=== PATIENT | female | born 1980 | race Caucasian/White ===

== ENCOUNTER 2022-03-13 15:39 | Outpatient (CLI) | payer OTHER, SELFPAY ==
--- OUTSIDE RECORDS SUMMARY | 2022-03-13 15:42 | XMS_ITS | Encounter Summary ---
:1980 Author Organization [facility] Address [address] [place] [id number] Care Team Providers Name Role Phone Pepper Palencia MD Primary Care Provider [phone] Reason for Visit Reason Comments Urgent Care Derm Problem Noticed bit on left leg. Itc hy and red. [place] Encounter Details Date Type Department Care Team Description 04/20/[address] [facility] Ishan Patricia (Primary Dx) Urgent Care Patrica Branham PA-C [address] [place] [address] [place] [phone] Social History Tobacco Use Types Packs/Day Years Used Date Never Smoker Smokeless Tobacco: Never Used Alcohol Use Standard Drinks/Week Comments Yes 0 (1 standard drink = 0.6 oz pure alcoho l) occasional 2 drinks/month Alcohol Habits Answer Date Recorded How often do you have a drink containing Not asked alcohol? How many drinks containing alcohol do you Not asked have on a typical day when you are drinking? How often do you have six or more drinks on Not asked one occasion? Comment: occasional 2 drinks/month 03/24/2018 Sex Assigned at Date Recorded Not on file documented as of this encounter Last Filed Vital Signs Vital Sign Reading Time Taken Comments Blood Pressure 110/68 04/20/2019 6:29 PM CDT Pulse 74 04/20/2019 6:29 PM CDT Temperature 36.7 ??C (98.1 ??F) 04/20/2019 6:29 PM CDT Respiratory Rate - - Oxygen Saturation 100% 04/20/2019 6:29 PM CDT Inhaled Oxygen Concentration - - Weight 83.9 kg (185 lb) 04/20/2019 6:29 PM CDT Height - - Body Mass Index 30.79 03/25/2018 6:31 AM CDT documented in this encounter Patient Instructions Patient Ishan Paz PA-C - 04/20/2019 6:00 PM CDT Images from the original note were not included. Patient Education Ringworm of the Skin Ringworm is a fungal infection of the skin. Despite the name, a worm doesn't cause it. The cause of ringworm is a fungus that infects the outer layers of the skin. It is also not caused by bed bugs, scabies, or lice. These are totally different. The medical term for ringworm is tinea. It can affect most parts of your body, although it seems to do better in moist areas of the body and around hair. It can be on almost any part of your body, including: ?? Arms, hands, legs, chest, feet, and back ?? Scalp ?? Lamb ?? Groin ?? Between the toes Depending on where it is located, sometimes the name changes: ?? Tinea capitis (scalp) ?? Tinea cruris (groin) ?? Tinea corporis (body) ?? Tinea pedis (feet) Causes Ringworm is very common all over the world, including the [place] It can take less than 1 week up to 2 weeks before you develop the infection after being exposed. So, you may not figure out the exact cause. It is spread through direct contact with: ?? An infected person or animal ?? Infected soil, or objects such as towels, clothing, and campbell Symptoms At first you might not notice ringworm. Or you may just see a small, red, often raised itchy spot orpimple. Sometimes there may only be one spot. At other times there may be several. Ringworm can lookslightly different on different parts of the body, but there are some things are always present: ?? Irregular, round, oval or ring-shaped, which is why it's called ringworm ?? Clearer or business practices officer color at the center, since it spreads from the center of the spot outward ?? Red or inflamed look ?? Raised ?? Itchy ?? Scaly, dry, or flaky Home care Follow these tips to help care for yourself at home: ?? Leave it alone. Don't scratch at the rash or pick it. This can increase the chance of infection and scarring. ?? Take medicine as prescribed. If you were prescribed a cream, apply it exactly as directed. Make sure to put the cream not just on the rash, but also on the skin 1 or 2 inches around it. Medicine by mouth is??sometimes needed, particularly for ringworm on the scalp.??Take it as directed and until your healthcare provider says to stop. ?? Keep it from spreading to others. Untreated ringworm of the skin is??contagious??by [id number] contact. Your child may return to school 2 days after treatment has started. Prevention To some degree, prevention depends on what part of your body was affected. In general, the followinggood hygiene can help. ?? Clean up??after you get dirty or sweaty, or after using a locker room. ?? When possible, don???t??share campbell and brushes. ?? Avoid having your skin and feet wet or damp for long periods. ?? Wear clean, loose-fitting underwear. Follow-up care Follow up with your healthcare provider as advised by our staff if the rash does not improve after 10 days of treatment or if the rash spreads to other areas of the body. When to seek medical advice Call your healthcare provider right away??if any of these occur: ?? Redness around the rash gets worse ?? Fluid drains from the rash ?? Fever of??100.4??F (38??C) or higher, or as directed by your healthcare provider Date Last Reviewed: 02/26/2016 ?? [id number] [employer]. [address] [place] [address], [place] [address]. All rights reserved. This information is not intended as a substitute for professional medical care. Always follow your healthcare professional's instructions. documented in this encounter Progress Notes Ishan Laboy PA-C - 04/20/2019 6:00 PM CDT Images from the original note were not included. 9 days of left lower leg quarter and dime size SUBJECTIVE: Clarice Arrington is a 39 year old female who presents to the clinic today for a rash. Onset of rash was 9 day(s) ago. Rash is gradual onset and worsening. Location of the rash: lower leg. Quality/symptoms of rash: itching, dry and red Symptoms are mild and rash seems to be worsening. Previous history of a similar rash? No Recent exposure history: none known Associated symptoms include: nothing. Past Medical History: Diagnosis Date ??? Breast cancer (H) ??? Breast cancer (H) ??? Depression Current Outpatient Medications Medication Sig Dispense Refill ??? albuterol (PROAIR HFA/PROVENTIL HFA/VENTOLIN HFA) 108 (90 Base) MCG/ACT inhaler Inhale 2 puffs into the lungs every 6 hours ??? BuPROPion HCl (WELLBUTRIN PO) Take 300 mg by mouth daily ??? clotrimazole (LOTRIMIN) 1 % external cream Apply topically 2 times daily for 14 days 40 g 0 ??? FLUOXETINE HCL PO Take 10 mg by mouth daily ??? acetaminophen (TYLENOL) 325 MG tablet Take 1 tablet (325 mg) by mouth every 6 hours as needed for mild pain (Patient not taking: Reported on 04/20/2019) 30 tablet 0 ??? chlorhexidine (PERIDEX) 0.12 % solution Swish and spit 15 mLs in mouth 2 times daily (Patient not taking: Reported on 04/20/2019) 473 mL 0 ??? HYDROcodone-acetaminophen (NORCO) 5-325 MG per tablet Take 1 tablet by mouth every 6 hours as needed for pain (Patient not taking: Reported on 04/20/2019) 8 tablet 0 ??? hydrocortisone (CORTAID) 1 % cream Apply sparingly to upper and lower lip three times daily to help improve swelling. (Patient not taking: Reported on 04/20/2019) 30 g 0 ??? ibuprofen (ADVIL/MOTRIN) 600 MG tablet Take 1 tablet (600 mg) by mouth every 6 hours as needed for moderate pain (Patient not taking: Reported on 04/20/2019) 30 tablet 1 ??? VITAMIN D, CHOLECALCIFEROL, PO Take 3,000 Units by mouth daily Social History Tobacco Use ??? Smoking status: Never Smoker ??? Smokeless tobacco: Never Used Substance Use Topics ??? Alcohol use: Yes Alcohol/week: 0.0 standard drinks Comment: occasional 2 drinks/month ROS: 10 point ROS negative except as listed above EXAM: BP 110/68 Pulse 74 Temp 98.1 ??F (36.7 ??C) (Tympanic) Wt 83.9 kg (185 lb) SpO2 100% BMI 30.79 kg/m?? GENERAL: alert, no acute distress. SKIN: Rash description: Distribution: 2 small dime and quarter sized red dry annular lesions with scaling edge GENERAL APPEARANCE: healthy, alert and no distress EYES: EOMI, PERRL, conjunctiva clear HENT: ear canals and TM's normal. Nose and mouth without ulcers, erythema or lesions NECK: supple, non-tender to palpation, no adenopathy noted RESP: lungs clear to auscultation - no rales, rhonchi or wheezes CV: regular rates and rhythm, normal S1 S2, no murmur noted ASSESSMENT: (B35.9) Ringworm (primary encounter diagnosis) Comment: no evidence of secondary infection Plan: clotrimazole (LOTRIMIN) 1 % external cream Follow up with PCP if symptoms worsen or fail to improve In 1 week Patient Instructions Patient Education Ringworm of the Skin Ringworm is a fungal infection of the skin. Despite the name, a worm doesn't cause it. The cause of ringworm is a fungus that infects the outer layers of the skin. It is also not caused by bed bugs, scabies, or lice. These are totally different. The medical term for ringworm is tinea. It can affect most parts of your body, although it seems to do better in moist areas of the body and around hair. It can be on almost any part of your body, including: ?? Arms, hands, legs, chest, feet, and back ?? Scalp ?? Lamb ?? Groin ?? Between the toes Depending on where it is located, sometimes the name changes: ?? Tinea capitis (scalp) ?? Tinea cruris (groin) ?? Tinea corporis (body) ?? Tinea pedis (feet) Causes Ringworm is very common all over the world, including the [place] It can take less than 1 week up to 2 weeks before you develop the infection after being exposed. So, you may not figure out the exact cause. It is spread through direct contact with: ?? An infected person or animal ?? Infected soil, or objects such as towels, clothing, and campbell Symptoms At first you might not notice ringworm. Or you may just see a small, red, often raised itchy spot orpimple. Sometimes there may only be one spot. At other times there may be several. Ringworm can lookslightly different on different parts of the body, but there are some things are always present: ?? Irregular, round, oval or ring-shaped, which is why it's called ringworm ?? Clearer or business practices officer color at the center, since it spreads from the center of the spot outward ?? Red or inflamed look ?? Raised ?? Itchy ?? Scaly, dry, or flaky Home care Follow these tips to help care for yourself at home: ?? Leave it alone. Don't scratch at the rash or pick it. This can increase the chance of infection and scarring. ?? Take medicine as prescribed. If you were prescribed a cream, apply it exactly as directed. Make sure to put the cream not just on the rash, but also on the skin 1 or 2 inches around it. Medicine by mouth is??sometimes needed, particularly for ringworm on the scalp.??Take it as directed and until your healthcare provider says to stop. ?? Keep it from spreading to others. Untreated ringworm of the skin is??contagious??by [id number] contact. Your child may return to school 2 days after treatment has started. Prevention To some degree, prevention depends on what part of your body was affected. In general, the followinggood hygiene can help. ?? Clean up??after you get dirty or sweaty, or after using a locker room. ?? When possible, don???t??share campbell and brushes. ?? Avoid having your skin and feet wet or damp for long periods. ?? Wear clean, loose-fitting underwear. Follow-up care Follow up with your healthcare provider as advised by our staff if the rash does not improve after 10 days of treatment or if the rash spreads to other areas of the body. When to seek medical advice Call your healthcare provider right away??if any of these occur: ?? Redness around the rash gets worse ?? Fluid drains from the rash ?? Fever of??100.4??F (38??C) or higher, or as directed by your healthcare provider Date Last Reviewed: 02/26/2016 ?? [id number] [employer]. [address] [place] [address]. All rights reserved. This information is not intended as a substitute for professional medical care. Always follow your healthcare professional's instructions. documented in this encounter Plan of Treatment Not on filedocumented as of this encounter Visit Diagnoses Diagnosis Ringworm - Primary Dermatophytosis of unspecified site documented in this encounter Care Teams Phys Therapist Relationship Specialty Start Date End Date Pepper Palencia MD PCP - General Family Practice 03/06/[address] [id number] documented as of this encounter
--- OUTSIDE RECORDS SUMMARY | 2022-03-13 15:42 | XMS_ITS | Encounter Summary ---
:1980 Author Organization [facility] Address [address] [place] [address] Care Team Providers Name Role Phone Pepper Palencia MD Primary Care Provider [phone] Reason for Visit Auth/Cert Specialty Diagnoses / Procedures Referred By Contact Refer red To Contact Surgery Diagnoses Trismus, Condylar Hyperplasia Uu Periop Procedures [facility] [address] [place] [address] Phone: Fax: Referral ID Status Reason Start Date Expiration Date Visits Requ ested Visits Authorized [id number] 1 1 Encounter Details Date Type Department Care Team Description 03/25/2018 Anesthesia Event LTAC, located within [facility] Catrina Saldana, PeriOp Services [address] [facility] [address] [place] [address] [facility] [address] [place], [place] [id number] (Wo rk) Anesthesia Record Procedure Summary Procedure Name Responsible Anesthesia Start Anesthesia Stop Anesthesiologist Time Time Bilateral Cristy Saldana MD 03/25/18 0740 03/25/18 1058 Coronoidectomies, Bilateral Ptergomasseteric Myotomies (Bilateral Mouth) Events Date Time Event Comment 03/25/2018 0740 An Jose A Oneil met on 3C. Chart reviewed. Interviewed. IV started. Blood drawn from IV that was started for labs. Ring from finger yecenia kevin by pt. Navel piercing removed by pt. Both were given to family. 0745 An Start Data 0757 An Induction 0757 MD Present 0801 AN START SEVO 0808 MD Present 0809 An Intubation 0815 AN Throat Pack In 0820 Initial Antibiotic (Started) 0820 Anesthesia Complete 0831 AN INCISION 1030 AN Throat Pack Out 1035 Quick Note OG placed by rena blackmon to empty stomach. Removed immediat ash. 1043 MD Present 1043 AN END SEVO 1043 AN Extubation 1046 an stop data 1058 An Stop Electronically s igned by Brayan Esparza on March 25, 2018 10:58 AM Name Total midazolam 1mg/mL 2 mg fentaNYL (SUBLIMAZE) injection 200 mcg lidocaine 2% 100 mg propofol (DIPRIVAN) injection 10 mg/mL vial 240 mg succinylcholine 20 mg/mL 200 mg rocuronium 10mg/mL 60 mg dexamethasone 4mg/mL 8 mg ondansetron 2mg/mL 4 mg sugammadex (BRIDION) 200mg/2ml 120 mg clindamycin (CLEOCIN) infusion 900 mg 900 mg ketorolac 30 mg/mL 2 mg LR 1,000 mL Agents Name NO HELIOX O2 N2O Air Exp Sevoflurane Exp Isoflurane Exp Desflurane Exp N2O O2 Delivery Device Ins Sevoflurane Ins Isoflurane Ins Desflurane O2 Auxiliary Blood No blood administrations on file. Lines, Drains, and Airways Type Details Placement Removal Incision/Surgical 09/25/16; 1233; Left; 09/25/16 1233 by Site Sharmila Campos RN Incision/Surgical 09/25/16; 1233; Right; 09/25/16 1233 by Site Sharmila Campos RN Closed/Suction Drain 09/25/16; 1500; 1; Left; 09/25/16 1500 by Breast; Bulb; 15 Martiniquais; Celina Lock, compress bulb at 4:30pm RN Closed/Suction Drain 09/25/16; 1500; 2; 09/25/16 1500 by Right; Breast; Bulb; 15 TirevoldCelina, Martiniquais; compress bulb at RN 4:30pm Incision/Surgical 05/07/17; 0839; Left; 05/07/17 0839 by Site Liyah Fox RN Incision/Surgical 05/07/17; 0839; Right; 05/07/17 0839 by Site Liyah Fox RN Peripheral IV 03/25/18; 0730; 18 G; 03/25/18 0730 by Left; Hand; Alcohol; Brayan Esparza Injectable; Tolerated NATALIE Carrillo CERTIFIED MEDICAL TRANSCRIPTIONIST well Incision/Surgical 03/25/18; 1014; 03/25/18 1014 by Site Bilateral; Mouth; Alisa Min Intraalee Thakkar, RN RETIRED ETT 03/25/18; 08; Mask 03/25/18 0809 by 03/25/18 1 043 by Ventilation: Easy; Ease Brayan Esparza Christian of Intubation: Difficult Lorena, COMPLAINT COORDINATOR CERTIFIED MEDICAL TRANSCRIPTIONIST Lorena, COMPLAINT COORDINATOR CERTIFIED MEDICAL TRANSCRIPTIONIST (challenging due to very limited mouth opening); Airway Size: 7; Cuffed; Nasal; Blade Type: C-Mac (only able to advance CMAC half way into oral cavity); Blade Size: 3; Place by: Afrin bilat.nares progressively dilated w/ 30&32Fr nasal trumpets.magills utilized w CMAC3.; Insertion Attempts: 2; Breath Sounds: Equal, clear and bilateral; End Tidal CO2: Present; Dentition: Intact, Unchanged; Grade View of Cords: 3 (epiglottis visualized, unable to advance CMAC to lift epiglottis); Airway Adjuncts: C-Mac (attempted nasal fiberoptic intubation, attempt aborted by SRNA ) documented in this encounter Social History Tobacco Use Types Packs/Day Years [...] on file documented as of this encounter OR Notes Anesthesia Postprocedure Evaluation - Cristy Saldana MD - 03/25/2018 1:06 PM CDT Patient: Clarice Bacat Procedure(s): Bilateral Coronoidectomies, Bilateral Ptergomasseteric Myotomies - Wound Class: II-Clean Contaminated Diagnosis:Trismus, Condylar Hyperplasia Diagnosis Additional Information: No value filed. Anesthesia Type: General Note: Anesthesia Post Evaluation Patient location during evaluation: PACU Patient participation: Able to fully participate in evaluation Level of consciousness: awake Pain management: adequate Airway patency: patent Cardiovascular status: acceptable Respiratory status: acceptable Hydration status: acceptable PONV: none Anesthetic complications: None Last vitals: Vitals: 03/25/18 1200 03/25/18 1215 03/25/18 1240 BP: 119/71 121/68 117/64 Pulse: Resp: Temp: 37 ??C (98.6 ??F) 37.1 ??C (98.8 ??F) SpO2: 99% 97% Electronically Signed By: Cristy Saldana MD March 25, 2018 1:06 PM Anesthesia Preprocedure Evaluation - Cristy Saldana MD - 03/25/2018 7:26 AM CDT ANESTHESIA PREOP EVALUATION NPO Status: more then 6 hours Procedure: Bilateral Coronoidectomies HPI: Trismus, Condylar Hyperplasia PMHx/PSHx/ROS: PAST MEDICAL HISTORY: Past Medical History: Diagnosis Date ??? Breast cancer (H) ??? Breast cancer (H) ??? Depression PAST SURGICAL HISTORY: Past Surgical History: Procedure Laterality Date ??? BIOPSY NODE SENTINEL Right 09/25/2016 Procedure: BIOPSY NODE SENTINEL; Surgeon: Spencer Blunt MD; Location: OR ??? BREAST SURGERY ??? HRW PORT A CATH ??? INSERT TISSUE FRONTEND ENGINEER BREAST BILATERAL Bilateral 09/25/2016 Procedure: INSERT TISSUE FRONTEND ENGINEER BREAST BILATERAL; Surgeon: Lore Traore MD; Location: OR ??? MASTECTOMY, NIPPLE SPARING Bilateral 09/25/2016 Procedure: MASTECTOMY, NIPPLE SPARING; Surgeon: Spencer Blunt MD; Location: OR ??? RECONSTRUCT BREAST BILATERAL, IMPLANT PROSTHESIS BILATERAL, COMBINED Bilateral 05/07/2017 Procedure: COMBINED RECONSTRUCT BREAST BILATERAL, IMPLANT PROSTHESIS BILATERAL; BILATERAL SECOND STAGE BREAST RECONSTRUCTION WITH IMPLANT PLACEMENT ; Surgeon: Lore Traore MD; Location: [place] ??? REMOVE PORT VASCULAR ACCESS Left 09/25/2016 Procedure: REMOVE PORT VASCULAR ACCESS; Surgeon: Spencer Blunt MD; Location: OR FAMILY HISTORY: History reviewed. No pertinent family history. Past Anes Hx: No personal or family h/o anesthesia problems Allergies: Allergies Allergen Reactions ??? Penicillins Pt stated she gets a yeast infection Meds: Prescriptions Prior to Admission Medication Sig Dispense Refill Last Dose ??? BuPROPion HCl (WELLBUTRIN PO) Take 300 mg by mouth daily 03/25/2018 at 0900 ??? FLUOXETINE HCL PO Take 10 mg by mouth daily 03/24/2018 at 0900 ??? albuterol (PROAIR HFA/PROVENTIL HFA/VENTOLIN HFA) 108 (90 Base) MCG/ACT inhaler Inhale 2 puffs into the lungs every 6 hours Unknown at Unknown time ??? VITAMIN D, CHOLECALCIFEROL, PO Take 3,000 Units by mouth daily More than a month at Unknown time No current outpatient prescriptions on file. Physical Exam: VS: T 98.5, P 75, BP 109/79, R 16, SpO2 100% MP4, TM distance >3fb, mouth opening 2 cm, full ROM, intact dentition. BMP: No results found for: NA Lab Results Component Value Date POTASSIUM 3.5 03/25/2018 No results found for: CHLORIDE No results found for: SCOOTER No results found for: CO2 No results found for: BUN Lab Results Component Value Date CR 0.87 03/25/2018 No results found for: GLC CBC: No results found for: WBC Lab Results Component Value Date HGB 12.5 03/25/2018 Anesthesia Plan History & Physical Review History and physical reviewed and following examination; no interval change. ASA Status: 2 . NPO Status: > 8 hours Plan for General and ETT with Intravenous induction. Maintenance will be Balanced. PONV prophylaxis: Ondansetron (or other 5HT-3) Additional equipment: Videolaryngoscope and Fiberoptic bronchoscope Postoperative Care Postoperative pain management: IV analgesics. Consents Anesthetic plan, risks, benefits and alternatives discussed with: Patient.. Cristy Saldana MD 03/25/2018 . documented in this encounter Miscellaneous Notes Anesthesia Care Transfer Note - Brayan Esparza APRN CERTIFIED MEDICAL TRANSCRIPTIONIST - 03/25/2018 10:57 AM CDT Patient: Clarice Bacat Procedure(s): Bilateral Coronoidectomies, Bilateral Ptergomasseteric Myotomies - Wound Class: II-Clean Contaminated Diagnosis: Trismus, Condylar Hyperplasia Diagnosis Additional Information: No value filed. Anesthesia Type: General Note: Airway :Face Mask Patient transferred to:PACU Comments: Oropharynx suctioned. Spont resp. Extubated. Exchanging well. To PACU. Report to RN at bedside. Pt awake and following commands. Handoff Report: Identifed the Patient, Identified the Reponsible Provider, Reviewed the pertinent medical history, Discussed the surgical course, Reviewed Intra-OP anesthesia mangement and issues during anesthesia, Set expectations for post- procedure period and Allowed opportunity for questions and acknowledgement of understanding Vitals: (Last set prior to Anesthesia Care Transfer) CERTIFIED MEDICAL TRANSCRIPTIONIST VITALS 03/25/2018 1016 - 03/25/2018 1057 03/25/2018 Resp Rate (observed): (!) 1 Electronically Signed By: Brayan Esparza APRN CRNA March 25, 2018 10:57 AM documented in this encounter Plan of Treatment Not on filedocumented as of this encounter Visit Diagnoses Not on filedocumented in this encounter Administered Medications Inactive Administered Medications - up to 3 most recent administrations Medication Order MAR Action Action Date Dose Rate Site clindamycin (CLEOCIN) infusion 900 Given 03/25/2018 8:20 AM CDT 900 mg mg Routine, 900 mg, Intravenous, PRE-OP/PRE-PROCEDURE, Starting on Fri03/25/18 at 0644, For 1 dose, Give first dose within 1 hour PRIOR to incision., Indications: Perioperative Pharmacoprophylaxis, Pre-procedure dexamethasone (DECADRON) injection Given 03/25/2018 8:16 AM CDT 8 mg Intravenous, PRN, Administer over 1 Minutes, Starting on Fri03/25/18 at 0816, Anesthesia Intra-op fentaNYL (PF) (SUBLIMAZE) injection Given 03/25/2018 9:12 AM CDT 50 mcg Intravenous, PRN, moderate to severe pain, Administer over 3-5 Minutes, Starting on Fri03/25/18 at 0752, Anesthesia Intra-op Given 03/25/2018 8:33 AM CDT 50 mcg Given 03/25/2018 8:13 AM CDT 50 mcg ketorolac (TORADOL) injection Given 03/25/2018 10:13 AM CDT 2 mg PRN, moderate pain, Administer over 2 Minutes, Starting on Fri03/25/18 at 1013, Anesthesia Intra-op lactated ringers infusion New Bag 03/25/2018 10:17 AM CDT Intravenous, CONTINUOUS PRN, Anesthesia Intra-op, Starting on Fri03/25/18 at 0730, Until Fri03/25/18 at 1058 New Bag 03/25/2018 7:30 AM CDT lidocaine injection 2% (MDV) Given 03/25/2018 7:57 AM CDT 100 mg Intravenous, PRN, Starting on Fri03/25/18 at 0757, Anesthesia Intra-op midazolam (VERSED) injection Given 03/25/2018 7:53 AM CDT 1 mg Intravenous, Administer over 2 Minutes, PRN, anxiety, Starting on Fri03/25/18 at 0753, Anesthesia Intra-op Given 03/25/2018 7:40 AM CDT 1 mg ondansetron (ZOFRAN) injection Given 03/25/2018 10:13 AM CDT 4 mg Intravenous, PRN, nausea, vomiting, Administer over 2-5 Minutes, Starting on Fri03/25/18 at 1013, Anesthesia Intra-op propofol (DIPRIVAN) injection 10 mg/mL v ial Given 03/25/2018 9:52 AM CDT 40 mg Intravenous, PRN, Starting on Fri03/25/18 at 0758, Anesthesia Intra-op Given 03/25/2018 8:11 AM CDT 30 mg Given 03/25/2018 8:07 AM CDT 30 mg rocuronium (ZEMURON) injection Given 03/25/2018 9:12 AM CDT 10 mg Intravenous, PRN, Starting on Fri03/25/18 at 0817, Anesthesia Intra-op Given 03/25/2018 8:19 AM CDT 20 mg Given 03/25/2018 8:17 AM CDT 30 mg succinylcholine (ANECTINE) injection Given 03/25/2018 8:04 AM CDT 100 mg Intravenous, PRN, Starting on Fri03/25/18 at 0804, Anesthesia Intra-op Given 03/25/2018 7:59 AM CDT 100 mg sugammadex (BRIDION) injection Given 03/25/2018 10:33 AM CDT 120 mg PRN, Starting on Fri03/25/18 at 1033, Anesthesia Intra-op documented in this encounter Care Teams Software Installation Engineer Relationship Specialty Start Date End Date Pepper Palencia MD PCP - General Family Practice 03/06/[address] [address] documented as of this encounter
--- OUTSIDE RECORDS SUMMARY | 2022-03-13 15:42 | XMS_ITS | Encounter Summary ---
:1980 Author Organization [facility] Address [address] [place] [address]. [place] [address] Care Team Providers Name Role Phone Pepper Palencia MD Primary Care Provider [phone] Encounter Details Date Type Department Care Team Description 12/22/2018 Orders Only [employer] Sena Patricio, Breast cancer (H) (Primary Dx); Naida Zhang MD BRCA1 positive [address] [facility] [id number] [place] [address] [place] [address] Social History Tobacco Use Types Packs/Day Years [...] on file documented as of this encounter Plan of Treatment Not on filedocumented as of this encounter Results Estradiol (12/29/2018 3:08 PM T) P athologist Signature Estradiol 344 pg/mL 12/29/2018 [facility] 5:45 PM CDT [facility] Comment: Estradiol reference ranges for pre-menop ausal Follicular ?20-144 pg/mL Mid-cycle ?? 64-357 pg/mL Luteal ? 56-214 pg/mL Specimen Anatomical Collection Method Collection Time Receive d Time (Source) Location / / Volume Laterality Blood specimen 12/29/2018 3:08 PM 019 3:09 (specimen) CDT PM CDT Sena Patricio MD LAB - BLOOD ORDERABLES Performing Organization Address [facility] e Number [facility] [address] Lutropin (12/29/2018 3:08 PM CDT) P athologist Signature Lutropin 25.8 IU/L 12/29/2018 [facility] 5:45 PM CDT [facility] Comment: LH Reference Range Female: Follicular ?1.9-12.5 ?Mid-cycle ? 8.7-76.3 ?Luteal ?0.5-16. 9 ?Postmenopausal ??15.9-54.0 Specimen Anatomical Collection Method Collection Time Receive d Time (Source) Location / / Volume Laterality Blood specimen 12/29/2018 3:08 PM 019 3:09 (specimen) CDT PM CDT Sena Patricio MD LAB - BLOOD ORDERABLES Performing Organization Address [facility] e [address] Follicle stimulating hormone (12/29/2018 3:08 PM CDT) P athologist Signature FSH 5.6 IU/L 12/29/2018 [facility] 5:45 PM CDT [facility] Comment: FSH Reference Range Female: Follicular ?2.5-10.2 ?Mid-cycle ? 3.4-33.4 ?Luteal ?1.5-9.1 ?Postmenopausal ??23.0-116.3 Specimen Anatomical Collection Method Collection Time Receive d Time (Source) Location / / Volume Laterality Blood specimen 12/29/2018 3:08 PM 2 019 3:09 (specimen) CDT CDT Sena Patricio MD LAB - BLOOD ORDERABLES Performing Organization Address City/State/ZIP Code Phon e Number [address] [address] [facility] Comprehensive metabolic panel (BMP + Alb, Alk Phos, ALT, AST, Total. Bili, TP) (12/29/2018 3:08 PM CDT) athologist Signature Sodium 139 133 - 144 12/29/2018 [facility] mmol/L 3:27 PM [facility] Potassium 4.0 3.4 - 5.3 12/29/2018 [place] mmol/L 3:27 PM [facility] Chloride 107 94 - 109 12/29/2018 [place] mmol/L 3:27 PM [facility] Carbon Dioxide 27 20 - 32 12/29/2018 [place] mmol/L 3:34 PM [facility] Anion Gap 5 3 - 14 12/29/2018 [place] mmol/L 3:34 PM [facility] Glucose 81 70 - 99 12/29/2018 [place] mg/dL 3:34 PM [facility] Urea Nitrogen 15 7 - 30 12/29/2018 [place] mg/dL 3:34 PM [facility] Creatinine 1.02 0.52 - 12/29/2018 [place] 1.04 mg/dL 3:34 PM [facility] GFR Estimate 70 >60 12/29/2018 [place] mL/min/{1. 3:34 PM [facility] 73_m2} HOSPITAL Comment: Non GFR Calc Starting 07/14/2018, serum creatinine ba sed estimated GFR (eGFR) will be calculated using the Chronic Kidney Dise [facility] Epidemiology Collaboration (CKD-EPI) equation. GFR Estimate If 81 >60 mL/min/{1.73_m2} 12/29/2018 3: 34 PM [facility] Comment: GFR Calc Starting 07/14/2018, serum creatinine ba sed estimated GFR (eGFR) will be calculated using the Chronic Kidney Dise [facility] Epidemiology Collaboration (CKD-EPI) equation. Calcium 8.7 8.5 - 10.1 mg/dL 12/29/2018 3:34 PM [facility] Bilirubin Total 0.4 0.2 - 1.3 mg/dL 12/29/2018 3:[address] [facility] Albumin 4.1 3.4 - 5.0 g/dL 12/29/2018 3:[address] [facility] Protein Total 7.8 6.8 - 8.8 g/dL 12/29/2018 3:[address] [facility] Alkaline Phosphatase 67 40 - 150 U/L 12/29/2018 3:[address] [facility] ALT 21 0 - 50 U/L 12/29/2018 3:36 PM [facility] AST 12 0 - 45 U/L 12/29/2018 3:36 PM [facility] Specimen Anatomical Collection Method Collection Time Receive d Time (Source) Location / / Volume Laterality Blood specimen 12/29/2018 3:08 PM 019 3:09 (specimen) CDT PM CDT Sena Patricio MD LAB - BLOOD ORDERABLES Performing Organization Address City/State/ZIP Code Phon e Number M [address] [address] [facility] [address] [place], [place] [address] [phone] [address], [facility] CBC with platelets and differential (12/29/2018 3:08 PM CDT) [facility] Method Time Signature WBC 6.6 4.0 - 12/29/2018 [facility] 11.0 3:16 PM [facility] 10e9/L [facility] RBC Count 4.15 3.8 - 5.2 12/29/2018 [place] 10e12/L 3:16 PM [facility] Hemoglobin 12.8 11.7 - 12/29/2018 [facility] 15.7 g/dL 3:16 PM [facility] Hematocrit 38.8 35.0 - 12/29/2018 [facility] 47.0 % 3:16 PM [facility] MCV 94 78 - 100 12/29/2018 [facility] fl 3:16 PM [facility] MCH 30.8 26.5 - 12/29/2018 [facility] 33.0 pg 3:16 PM [facility] MCHC 33.0 31.5 - 12/29/2018 [facility] 36.5 g/dL 3:16 PM [facility] RDW 13.1 10.0 - 12/29/2018 [facility] 15.0 % 3:16 PM [facility] Platelet Count 335 150 - 450 12/29/2018 [facility] 10e9/L 3:16 PM [facility] Diff Method Automated 12/29/2018 [facility] Method 3:16 PM [facility] % Neutrophils 48.6 % 12/29/2018 [facility] 3:16 PM [facility] % Lymphocytes 35.5 % 12/29/2018 [facility] 3:16 PM [facility] % Monocytes 11.0 % 12/29/2018 [facility] 3:16 [facility] % Eosinophils 3.3 % 12/29/2018 [facility] 3:16 PM [facility] % Basophils 1.4 % 12/29/2018 [facility] 3:16 PM [facility] % Immature 0.2 % 12/29/2018 [facility] Granulocytes 3:16 [facility] Nucleated RBCs 0 0 /100 12/29/2018 [facility] 3:16 PM [facility] Absolute 3.2 1.6 - 8.3 12/29/2018 [facility] Neutrophil 10e9/L 3:16 [facility] Absolute 2.4 0.8 - 5.3 12/29/2018 [facility] Lymphocytes 10e9/L 3:16 PM [facility] Absolute 0.7 0.0 - 1.3 12/29/2018 [facility] Monocytes 10e9/L 3:16 [facility] Absolute 0.2 0.0 - 0.7 12/29/2018 [facility] Eosinophils 10e9/L 3:16 [facility] Absolute 0.1 0.0 - 0.2 12/29/2018 [facility] Basophils 10e9/L 3:16 [facility] Abs Immature 0.0 0 - 0.4 12/29/2018 [facility] Granulocytes 10e9/L 3:16 PM CDT [facility] Absolute 0.0 12/29/2018 [place] Nucleated RBC 3:16 PM CDT [facility] Specimen Anatomical Collection Method Collection Time Receive d Time (Source) Location / / Volume Laterality Blood specimen 12/29/2018 3:08 PM 019 3:09 (specimen) CDT PM CDT Sena Patricio MD LAB - BLOOD ORDERABLES Performing Organization Address City/State/ZIP Code Phon e Number M [place] [address] [address] [address] [facility] [address] [phone] documented in this encounter Visit Diagnoses Diagnosis Breast cancer (H) - Primary Malignant neoplasm of breast (female), u nspecified site BRCA1 positive Genetic susceptibility to malignant neop lasm of breast documented in this encounter Care Teams Diagnostic Medical Sonographer Relationship Specialty Start Date End Date Pepper Palencia MD PCP - General Family Practice 03/06/[address] [address] documented as of this encounter
--- OUTSIDE RECORDS SUMMARY | 2022-03-13 15:42 | XMS_ITS | Encounter Summary ---
:1980 Author Organization [facility] Address [address] [place] [address]. [place] [address] Care Team Providers Name Role Phone Pepper Palencia MD Primary Care Provider Encounter Details Date Type Department Care Team Description 12/29/2018 Hospital Encounter [facility] Sena Patricio B reast cancer (H); Naida Zhang MD BRCA1 positive [address] [facility] [id number] [address] [facility] [phone] [place] [address] Social History Tobacco Use Types Packs/Day Years [...] on file documented as of this encounter Medications at Time of Discharge Medication Sig Dispensed Refills Start Date End Date acetaminophen (TYLENOL) 325 Take 1 tablet (325 30 tablet 0 03/25/2018 MG tabletIndications: mg) by mouth every Bilateral temporomandibular 6 hours as needed joint pain for mild pain albuterol (PROAIR Inhale 2 puffs into 0 HFA/PROVENTIL HFA/VENTOLIN the lungs every 6 HFA) 108 (90 Base) MCG/ACT hours inhalerIndications: albuteral MCI Ventolin HFA 90 mcgm BuPROPion HCl (WELLBUTRIN Take 300 mg by 0 PO) mouth daily chlorhexidine (PERIDEX) 0.12 Swish and spit 15 473 mL 0 03/25/2018 % solutionIndications: mLs in mouth 2 Bilateral temporomandibular times daily joint pain FLUOXETINE HCL PO Take 10 mg by mouth 0 daily HYDROcodone-acetaminophen Take 1 tablet by 8 tablet 0 02/26 (NORCO) 5-325 MG per mouth every 6 hours tabletIndications: Bilateral as needed for pain temporomandibular joint pain hydrocortisone (CORTAID) 1 % Apply sparingly to 30 g 0 03/25/2018 creamIndications: Bilateral upper and lower lip temporomandibular joint pain three times daily to help improve swelling. ibuprofen (ADVIL/MOTRIN) 600 Take 1 tablet (600 30 tablet 1 03/25/2018 MG tabletIndications: mg) by mouth every Bilateral temporomandibular 6 hours as needed joint pain for moderate pain VITAMIN D, CHOLECALCIFEROL, Take 3,000 Units by 0 POIndications: Vitamin D mouth daily 3000 daily documented as of this encounter Plan of Treatment Not on filedocumented as of this encounter Procedures Procedure Name Priority Date/Time Associated Comments Diagnosis CBC WITH PLATELETS & Routine 12/29/2018 3:08 PM Breast c ancer (H) Results for this DIFFERENTIAL CDT BRCA1 positive procedure are in the results section. LUTEINIZING HORMONE, Routine 12/29/2018 3:08 PM Breast c ancer (H) Results for this ADULT CDT BRCA1 positive procedure are in the results section. FOLLICLE STIMULATING Routine 12/29/2018 3:08 PM Breast c ancer (H) Results for this HORMONE CDT BRCA1 positive procedure are in the results section. ESTRADIOL Routine 12/29/2018 3:08 PM Breast cancer (H) Results for this CDT BRCA1 positive procedure are in the results section. COMPREHENSIVE Routine 12/29/2018 3:08 PM Breast cancer (H) Results for this METABOLIC PANEL CDT BRCA1 positive procedure are in the results section. documented in this encounter Results CBC with platelets and differential (12/29/2018 3:08 PM CDT) [facility] Method Time Signature WBC 6.6 4.0 - 12/29/2018 [facility] 11.0 3:16 PM CDT [facility] 10e9/L [facility] RBC Count 4.15 3.8 - 5.2 12/29/2018 [facility] 10e12/L 3:16 PM [facility] Hemoglobin 12.8 11.7 - 12/29/2018 [facility] 15.7 g/dL 3:16 PM [facility] Hematocrit 38.8 35.0 - 12/29/2018 [facility] 47.0 % 3:16 PM [facility] MCV 94 78 - 100 12/29/2018 [facility] fl 3:16 PM [facility] MCH 30.8 26.5 - 12/29/2018 [facility] 33.0 pg 3:16 PM [facility] MCHC 33.0 31.5 - 12/29/2018 [facility] 36.5 g/dL 3:16 PM [facility] RDW 13.1 10.0 - 12/29/2018 [facility] 15.0 % 3:16 PM [facility] Platelet Count 335 150 - 450 12/29/2018 [facility] 10e9/L 3:16 PM [facility] Diff Method Automated 12/29/2018 [facility] Method 3:16 PM [facility] % Neutrophils 48.6 % 12/29/2018 [facility] 3:16 PM [facility] % Lymphocytes 35.5 % 12/29/2018 [facility] 3:16 PM [facility] % Monocytes 11.0 % 12/29/2018 [facility] 3:16 [facility] % Eosinophils 3.3 % 12/29/2018 [facility] 3:16 PM [facility] % Basophils 1.4 % 12/29/2018 [facility] 3:16 PM [facility] % Immature 0.2 % 12/29/2018 [facility] Granulocytes 3:16 [facility] Nucleated RBCs 0 0 /100 12/29/2018 [facility] 3:16 PM [facility] Absolute 3.2 1.6 - 8.3 12/29/2018 [facility] Neutrophil 10e9/L 3:16 PM [facility] Absolute 2.4 0.8 - 5.3 12/29/2018 [facility] Lymphocytes 10e9/L 3:16 PM [facility] Absolute 0.7 0.0 - 1.3 12/29/2018 [facility] Monocytes 10e9/L 3:16 PM [facility] Absolute 0.2 0.0 - 0.7 12/29/2018 [facility] Eosinophils 10e9/L 3:16 PM [facility] Absolute 0.1 0.0 - 0.2 12/29/2018 [facility] Basophils 10e9/L 3:16 PM [facility] Abs Immature 0.0 0 - 0.4 12/29/2018 [facility] Granulocytes 10e9/L 3:16 PM [facility] Absolute 0.0 12/29/2018 [facility] Nucleated RBC 3:16 PM [facility] Specimen Anatomical Collection Method Collection Time Receive d Time (Source) Location / / Volume Laterality Blood specimen 12/29/2018 3:08 PM 019 3:09 (specimen) CDT [facility] MD LAB - BLOOD ORDERABLES Performing Organization Address City/State/ZIP Code Phon e Number [place] [address] [address] [place] [address] [place] [address] [phone] Comprehensive metabolic panel (BMP + Alb, Alk Phos, ALT, AST, Total. Bili, TP) (12/29/2018 3:08 PM CD) athologist Signature Sodium 139 133 - 144 12/29/2018 [facility] mmol/L 3:27 PM [facility] Potassium 4.0 3.4 - 5.3 12/29/2018 [facility] mmol/L 3:27 PM [facility] Chloride 107 94 - 109 12/29/2018 [facility] mmol/L 3:27 PM [facility] Carbon Dioxide 27 20 - 32 12/29/2018 [facility] mmol/L 3:34 PM [facility] Anion Gap 5 3 - 14 12/29/2018 [facility] mmol/L 3:34 PM [facility] Glucose 81 70 - 99 12/29/2018 [facility] mg/dL 3:34 PM [facility] Urea Nitrogen 15 7 - 30 12/29/2018 [facility] mg/dL 3:34 PM [facility] Creatinine 1.02 0.52 - 12/29/2018 [facility] 1.04 mg/dL 3:34 PM [facility] GFR Estimate 70 >60 12/29/2018 [facility] mL/min/{1. 3:34 PM [facility] 73_m2} [facility]OSPITAL Comment: Non GFR Calc Starting 07/14/2018, serum creatinine ba sed estimated GFR (eGFR) will be calculated using the Chronic Kidney Dise [facility] Epidemiology Collaboration (CKD-EPI) equation. GFR Estimate If 81 >60 mL/min/{1.73_m2} 12/29/2018 3: [address] [facility] Comment: GFR Calc Starting 07/14/2018, serum creatinine ba sed estimated GFR (eGFR) will be calculated using the Chronic Kidney Dise [facility] Epidemiology Collaboration (CKD-EPI) equation. Calcium 8.7 8.5 - 10.1 mg/dL 12/29/2018 3:34 PM [facility] Bilirubin Total 0.4 0.2 - 1.3 mg/dL 12/29/2018 3:36 PM [facility] Albumin 4.1 3.4 - 5.0 g/dL 12/29/2018 3:36 PM [facility] Protein Total 7.8 6.8 - 8.8 g/dL 12/29/2018 3:[address] [facility] Alkaline Phosphatase 67 40 - 150 U/L 12/29/2018 3:36 PM [facility] ALT 21 0 - 50 U/L 12/29/2018 3:36 PM [facility] AST 12 0 - 45 U/L 12/29/2018 3:36 PM [facility] Specimen Anatomical Collection Method Collection Time Receive d Time (Source) Location / / Volume Laterality Blood specimen 12/29/2018 3:08 PM 019 3:09 (specimen) CDT [facility] Sena Patricio MD LAB - BLOOD ORDERABLES Performing Organization Address City/State/ZIP Code Phon e Number [place] [address] [facility] [address] [address] [facility] [address] [place] [address] [facility] [phone] [place] [address] [place] [address], [facility] Follicle stimulating hormone (12/29/2018 3:08 PM CDT) athologist Signature FSH 5.6 IU/L 12/29/2018 [facility] 5:45 PM CDT [facility] Comment: FSH Reference Range Female: Follicular ?2.5-10.2 ?Mid-cycle ? 3.4-33.4 ?Luteal ?1.5-9.1 ?Postmenopausal ??23.0-116.3 Specimen Anatomical Collection Method Collection Time Receive d Time (Source) Location / / Volume Laterality Blood specimen 12/29/2018 3:08 PM 019 3:09 (specimen) CDT PM CDT eSna Patricio MD LAB - BLOOD ORDERABLES Performing Organization Address City/[facility] Code Phon e Number [facility] [address] Lutropin (12/29/2018 3:08 PM CDT) athologist Signature Lutropin 25.8 IU/L 12/29/2018 [facility] 5:45 PM CDT [facility] Comment: LH Reference Range Female: Follicular ?1.9-12.5 ?Mid-cycle ? 8.7-76.3 ?Luteal ?0.5-16. 9 ?Postmenopausal ??15.9-54.0 Specimen Anatomical Collection Method Collection Time Receive d Time (Source) Location / / Volume Laterality Blood specimen 12/29/2018 3:08 PM 019 3:09 (specimen) CDT PM CDT Sena Patricio MD LAB - BLOOD ORDERABLES Performing Organization Address [facility] Phon e Number [facility] [address] Estradiol (12/29/2018 3:08 PM CDT) P athologist Signature Estradiol 344 pg/mL 12/29/2018 [facility] 5:45 PM CDT [facility] Comment: Estradiol reference ranges for pre-menop ausal Follicular ?20-144 pg/mL Mid-cycle ?? 64-357 pg/mL Luteal ? 56-214 pg/mL Specimen Anatomical Collection Method Collection Time Receive d Time (Source) Location / / Volume Laterality Blood specimen 12/29/2018 3:08 PM 019 3:09 (specimen) CDT PM CDT Sena Patricio MD LAB - BLOOD ORDERABLES Performing Organization Address City/State/ZIP Code Phon e Number [facility] [address] [place], [place] [id number] [place] [address] documented in this encounter Visit Diagnoses Diagnosis Breast cancer (H) Malignant neoplasm of breast (female), u nspecified site BRCA1 positive Genetic susceptibility to malignant neop lasm of breast documented in this encounter Care Teams [place] Department Manager Relationship Specialty Start Date End Date Pepper Palencia MD PCP - General Family Practice 03/06/[address] [address] documented as of this encounter
--- OUTSIDE RECORDS SUMMARY | 2022-03-13 15:42 | XMS_ITS | Encounter Summary ---
:1980 Author Organization [facility] Address [address] [place] [address] Care Team Providers Name Role Phone Pepper Palencia MD Primary Care Provider [phone] Reason for Visit Auth/Cert Specialty Diagnoses / Procedures Referred By Contact Refer red To Contact Surgery Diagnoses Trismus, Condylar Hyperplasia Uu Periop Procedures EXCISE LESION INTRAORAL [address] [place] [address] Phone: Fax: Referral ID Status Reason Start Date Expiration Date Visits Requ ested Visits Authorized [id number] 1 1 Encounter Details Date Type Department Care Team Description 03/25/2018 Surgery [facility] Elder Riley DDS Bilateral [facility] PeriOp Services [phone] [facility], [address] [place]ilateral [place] [address] [place], [place] Myotomies [phone] (Wo rk) Surgery Details Date/Time Status Location OR Service Patient Case Case Traum a Class Class Type Case? 03/25/18 7:45 Posted UU OR UU OR Oral-Maxill Same Day AM 08 ofacial Surgery Panel 1 Procedure LRB Anes Op Region Wound Class Commen ts Bilateral Bilateral General Mouth II-Clean Bilateral Coronoidectomies, Contaminated Coron oidectomies, Bilateral Bilateral Ptergomasseteric Ptergoma sseteric Myotomies Myotomies Surgeon Surgeon Role Service Panel Elder Riley DDS Primary Oral-Maxillofacial 1 Oc Taveras MD Resident - Assisting 1 Marshall Contreras MD Resident - Assisting 1 Special Needs Fax 150 documented in this encounter Social History Tobacco [...] Sign Reading Time Taken Comments Blood Pressure 110/64 03/25/2018 2:00 PM CDT Pulse 75 03/25/2018 6:31 AM CDT Temperature 36.9 ??C (98.4 ??F) 03/25/2018 2:00 PM CDT Respiratory Rate 16 03/25/2018 2:00 PM CDT Oxygen Saturation 98% 03/25/2018 2:00 PM CDT Inhaled Oxygen Concentration - - Weight 59.3 kg (130 lb 11.7 oz) 03/25/2018 6:31 AM CDT Height 165.1 cm (5' 5) 03/25/2018 6:31 AM CDT Body Mass Index 21.76 03/25/2018 6:31 AM CDT documented in this encounter Discharge Instructions Discharge InstructionsCarlos Ashby RN - 03/25/2018 11:27 AM CDT [facility] Adult Discharge Orders & Instructions For 24 hours after surgery 1. Get plenty of rest. A responsible adult must stay with you for at least 24 hours after you leave the hospital. 2. Do not drive or use heavy equipment. If you have weakness or tingling, don't drive or use heavy equipment until this feeling goes away. 3. Do not drink alcohol. 4. Avoid strenuous or risky activities. Ask for help when climbing stairs. 5. You may feel lightheaded. IF so, sit for a few minutes before standing. Have someone help you getup. 6. If you have nausea (feel sick to your stomach): Drink only clear liquids such as apple juice, jennifer mehran, broth or 7-Up. Rest may also help. Be sure to drink enough fluids. Move to a regular diet asyou feel able. 7. You may have a slight fever. Call the doctor if your fever is over 100??F (37.7??C) (taken under the tongue) or lasts longer than 24 hours. 8. You may have a dry mouth, a sore throat, muscle aches or trouble sleeping. These should go away after 24 hours. 9. Do not make important or legal decisions. Call your doctor for any of the followin. Signs of infection (fever, growing tenderness at the surgery site, a large amount of drainage or bleeding, severe pain, foul-smelling drainage, redness, swelling). 2. It has been over 8 to 10 hours since surgery and you are still not able to urinate (pass water). 3. Headache for over 24 hours. 4. Numbness, tingling or weakness the day after surgery (if you had spinal anesthesia). To contact a doctor, call Dr. Riley (Oral Surgery) @ [phone] or: ??? [phone] and ask for the resident communications planner for Oral-Maxillofacial (answered 24 hours a day) ??? Emergency Department: [facility]: [phone] (TTY for hearing impaired: [phone]) documented in this encounter Medications at Time of Discharge Medication Sig Dispensed Refills Start Date End Date acetaminophen (TYLENOL) Take 1 tablet (325 30 tablet 0 02/26 325 MG tabletIndications: mg) by mouth every Bilateral 6 hours as needed temporomandibular joint for mild pain pain albuterol (PROAIR Inhale 2 puffs 0 HFA/PROVENTIL HFA/VENTOLIN into the lungs HFA) 108 (90 Base) MCG/ACT every 6 hours inhalerIndications: albuteral MCI Ventolin HFA 90 mcgm BuPROPion HCl (WELLBUTRIN Take 300 mg by 0 PO) mouth daily chlorhexidine (PERIDEX) Swish and spit 15 473 mL 0 03/25 0.12 % mLs in mouth 2 solutionIndications: times daily Bilateral temporomandibular joint pain FLUOXETINE HCL PO Take 10 mg by 0 mouth daily HYDROcodone-acetaminophen Take 1 tablet by 8 tablet 0 02/26 (NORCO) 5-325 MG per mouth every 6 tabletIndications: hours as needed Bilateral for pain temporomandibular joint pain hydrocortisone (CORTAID) 1 Apply sparingly to 30 g 0 0 03/25/2018 % creamIndications: upper and lower Bilateral lip three times temporomandibular joint daily to help pain improve swelling. ibuprofen (ADVIL/MOTRIN) Take 1 tablet (600 30 tablet 1 600 MG tabletIndications: mg) by mouth every Bilateral 6 hours as needed temporomandibular joint for moderate pain pain VITAMIN D, Take 3,000 Units 0 CHOLECALCIFEROL, by mouth daily POIndications: Vitamin D 3000 daily clindamycin (CLEOCIN) 300 Take 1 capsule 28 capsule 0 201704/01/2018 MG capsuleIndications: (300 mg) by mouth Bilateral 4 times daily for temporomandibular joint 7 days pain documented as of this encounter Progress Notes Spencer Jordan MD - 03/23/2018 7:20 AM CDT Oral & Maxillofacial Surgery pre-operative note: Clarice Arrington Age: [age] year old Date of : 1980 03/23/2018 Pre-Operative Diagnosis: 1. Condylar hyperplasia 2. Limited mouth opening Planned Procedure: 1. Bilateral coronoidectomies Planned Anesthesia: General via nasal endotracheal tube Surgeon: Dr. Elder Riley DDS Resident Surgeon: Oc Taveras DDS Resident Assistants: Antonio Contreras DDS Consent: Written and verbal consent obtained from patient previously. Discussion included risks/complicationsincluding but not limited post-operative pain, swelling, bleeding, infection, dehiscence of wounds, temporary/permanent paresthesia/anesthesia of CN V3 mental nerve distribution/CN V2 maxillary nerve distribution, damage to CN VII (motor to muscles of facial expression) with temporary or permanent paralysis, scar formation, malocclusion, failure to resolve chief complaint, or need for additional procedures. Patient agrees to procedure as written, signed consent in chart. Spencer Jordan DDS PGY-2 Pager: [phone] documented in this encounter Nursing Notes See Rothman, NORA - 03/25/2018 2:15 PM CDT Detaied discharge instructions given to Mother et sister..Pt doing well.. Left with NST et family toown car.. Prescriptions Up. Lupe Swanson RN - 03/25/2018 8:22 AM CDT Pt with ring and belly ring on before she left for OR, these were taken off and given to her family. documented in this encounter Miscellaneous Notes Op Note - Oc Taveras MD - 03/25/2018 2:18 PM CDT DATE OF SERVICE: 03/25/18 STAFF SURGEON: Elder Riley DDS, FACS RESIDENT SURGEON: Oc Taveras DDS OFFC SPEC: Antonio Contreras DDS PREOPERATIVE DIAGNOSES: Mandibular Hypomobility POSTOPERATIVE DIAGNOSES: Same PROCEDURES PERFORMED: Bilateral Coronoidectomy Bilateral Pterygomasseteric Sling Release [place] Procedure INDICATIONS: Clarice Arrington is a 38-year-old woman who has been followed by the Oral Maxillofacial Surgery Service for mandibular hypomobility, originally referred by Dr. Gibson. She has completed physical therapy at [facility] in [place], [place] without improvement in maximum interincisal opening. Her ISMAEL measured in clinic has consistently been 22mm with firm hard stop. CT maxillofacial was obtained through [facility], imaging revealed bilateral coronoid hyperplasia with concern for functionalobstruction upon opening against the internal surface of the zygomatic arch. After discussion with Clarice regarding perform procedure or continuing nonsurgical treatment, she elected to move forward with surgical treatment. The patient elected to proceed with bilateral coronoidectomy, bilateral pterygomasseteric release, and brisemont brocedure. The risks of the procedure including pain, swelling, bleeding, infection, damage to adjacent structures including temporary or permanent paresthesia, temporary or permanent paralysis of the facial nerve, need for post-operative physical therapy, or the potential for need for further procedures. The patient verbalized understanding of the risks of the procedure and informed consent was signed and placed in patient's chart. DESCRIPTION OF PROCEDURE: The patient was met in the pre-operative holding unit at the [facility].A head wrap was placed by the Oral Surgery Service followed by site marking of the left TMJ. The patient was then turned over to the Anesthesia Service. The patient was transported via gurney to operating room #8 and once in the operating room was moved onto the operating room table and placed in the supine position. The patient was appropriately tucked and padded. The patient then underwent a smoothIV induction and a nasal endotracheal tube was placed via the left nare. Proper positioning of the endotracheal tube was verified with positive end tidal CO2, fog in the tube, as well as bilateral breath sounds to auscultation. Tube was secured by the OM service. The facial prep was then performed by the Oral Surgery Service with placement of benzoin and tape surrounding the left ear in order to retract hair from the surgical field. A Betadine facial scrub was then performed in order to obtain a sterile operating field. The surgeons left the room to sterilely scrub and returned to don sterile gown and gloves. A time out was then performed following the [facility] [place] protocol in order to ensure proper patient and procedure. Once paralyzed, ISMAEL was reassessed. ISMAEL was noted to be 27mm from mandibular incisor to maxillary incisor with molt mouth prop utilized for mouth opening. With mouth opened at 27mm, palpated the right and left ascending ramus, appreciated significant tension of the medial pterygoid and masseter muscles, likely contributing to decreased ISMAEL. Attention was directed to the left mandible. Molt mouth prop positioned, weider retractor placed. A standard bilateral sagittal split osteotomy incision created with needle tip cautery from mid ascending ramus to the depth of the buccal vestibule adjacent to #18. Hemostasis obtained with cauter. Incision carried to bone. Periosteal elevator used to create subperiosteal dissection. Dissection performed to inferior border extending posteriorly to the angle of the mandible. Dissection then carried superiorly releasing the masseter muscle to the posterior border of the mandible. A v-notched retractor was positioned on the ascending ramus and retracted superiorly revealing the temporalis fibers. Temporalis fibers were released with needle tip cautery. Temporalis attachment was stripped lateral, medialand superior of the left coronoid process. Once the temporalis was stripped, periosteal elevator used to ensure dissection was complete to posterior and inferior border of the mandible. Sigmoid notch was identified with dental curette. John bur was used with copious irrigation to perform a coronoidotomy. Upon attempted removal of the left coronoid process it was determined to have significant resistant and it was elected to leave it. Next a J stripper was used on the inferior border to release the pterygomassteric sling posteriorly to the angle of the mandible. Surgical site was copiously irrigated. ISMAEL was reassessed, ISMAEL was noted to be 36mm with significant tension of the medial pterygoid and masseter muscle on the patient's right side. Attention was directed to the right mandible. Molt mouth prop positioned, weider retractor placed. Astandard bilateral sagittal split osteotomy incision created with needle tip cautery from mid ascending ramus to the depth of the buccal vestibule adjacent to #31. Hemostasis obtained with cauter. Incision carried to bone. Periosteal elevator used to create subperiosteal dissection. Dissection performed to inferior border extending posteriorly to the angle of the mandible. Dissection then carried superiorly releasing the masseter muscle to the posterior border of the mandible. A v-notched retractor was positioned on the ascending ramus and retracted superiorly revealing the temporalis fibers. Tempor ajit fibers were released with needle tip cautery. Temporalis attachment was stripped lateral, medial and superior of the left coronoid process. Once the temporalis was stripped, periosteal elevator used to ensure dissection was complete to posterior and inferior border of the mandible. Sigmoid notch was identified with dental curette. John bur was used with copious irrigation to perform a coronoidotomy. Coronoid process was removed on the patient's right side. Next a J stripper was used on theinferior border to release the pterygomassteric sling posteriorly to the angle of the mandible. Uponrelease of the sling copiously bleeding was noted adjacent to the antegonial notch, likely from the facial artery. This was packed with moist strung out gauze. Bipolar cautery was methodically utilizedto cauterize the vessel. Surgical site was copiously irrigated. ISMAEL was reassessed with molt mouth prop, patient was opened to 55mm x3 with ease. Patient left open for approximately two minutes, noted relief of tension bilaterally at medial pterygoid and masseter muscles. Both incisions were reapproximated with 3-0 vicryl via horizontal mattress sutures. Tissues noted sebas well approximated. The patient was then turned over to the Anesthesia Service for a smooth emergence from anesthesia and extubation. The patient was transported by the Anesthesia Service to the Postanesthesia Care Unit for postoperative monitoring and pain management. The patient was discharged to home with postoperative instructions, medications and follow-up appointment information. Patient has post-operative physical therapy ordered. ESTIMATED BLOOD LOSS: 100 mL. FLUIDS: 800ml crystalloid SPECIMENS: None. COMPLICATIONS: None. FINDINGS: 22mm ISMAEL at beginning of procedure. At conclusion procedure after bilateral coronoidectomies, release of pterygomasseteric slings, and brisemont procedure, ISMAEL was repeatedly measured at 55mm. Dr. Elder Riley was scrubbed for and performed the entire procedure. Oc Taveras DDS Brief Op Note - Marshall Contreras MD - 03/25/2018 10:50 AM CDT [facility] [place] Brief Operative Note Pre-operative diagnosis: Trismus, Condylar Hyperplasia Post-operative diagnosis * No post-op diagnosis entered * Procedure: Procedure(s): Bilateral Coronoidectomies, Bilateral Ptergomasseteric Myotomies - Wound Class: II-Clean Contaminated Surgeon: Surgeon(s) and Role: * Elder Riley DDS - Primary * Oc Taveras MD - Resident - Assisting * Marshall Contreras MD - Resident - Assisting Anesthesia: General Local Anesthesia: 10cc 0.5% bupivacaine with 1:200,000 epinephrine Fluids: Estimated blood loss: 100cc FLuids: 1L LR Drains: None Specimens: * No specimens in log * Findings: None. Complications: None. Implants: None. documented in this encounter Plan of Treatment Not on filedocumented as of this encounter Procedures Procedure Name Priority Date/Time Associated Diagnosis Comme nts EXCISION, LESION, 03/25/2018 7:45 AM CDT Trismus, Cond ylar MOUTH Hyperplasia Special Needs Fax 150 POTASSIUM STAT 03/25/2018 7:20 AM CDT Resul ts for this procedure are in the resu lts section. HEMOGLOBIN STAT 03/25/2018 7:20 AM CDT Resul ts for this procedure are in the resu lts section. CREATININE STAT 03/25/2018 7:20 AM CDT Resul ts for this procedure are in the resu lts section. HCG QUALITATIVE URINE STAT 03/25/2018 6:50 AM CDT Results for this procedure are in the resu lts section. GLUCOSE BY METER Routine 03/25/2018 6:23 AM CDT R esults for this procedure are in the resu lts section. LAB RESULT - HIM SCAN 01/05/2018 12:00 AM CDT documented in this encounter Results Creatinine (03/25/2018 7:20 AM CDT) athologist Signature Creatinine 0.87 0.52 - 1.04 03/25/2018 [facility] mg/dL 7:57 AM CDT [facility] GFR Estimate 73 >60 03/25/2018 [facility] mL/min/1.7m 7:57 AM CDT [address] Comment: Non GFR Calc GFR Estimate If 89 >60 mL/min/1.7m2 03/25/2018 7:57 A M [facility] Black [facility] Comment: GFR Calc Specimen Anatomical Collection Method Collection Time Receive d Time (Source) Location / / Volume Laterality Blood specimen 03/25/2018 7:20 AM 018 7:34 (specimen) CDT AM CDT Cristy Saldana MD LAB - BLOOD ORDERABLES Performing Organization Address City/State/ZIP Code Phon e Number [facility] [address] [place] [address] [facility] Potassium (03/25/2018 7:20 AM CDT) athologist Signature Potassium 3.5 3.4 - 5.3 03/25/2018 [facility] mmol/L 7:57 AM CDT [facility] Specimen Anatomical Collection Method Collection Time Receive d Time (Source) Location / / Volume Laterality Blood specimen 03/25/2018 7:20 AM 018 7:34 (specimen) CDT AM CDT Cristy Saldana MD LAB - BLOOD ORDERABLES Performing Organization Address City/[facility]/ZIP Code Phon e Number [address] Hemoglobin (03/25/2018 7:20 AM CDT) P athologist Signature Hemoglobin 12.5 11.7 - 15.7 03/25/2018 [facility] g/dL 7:37 AM CDT [facility] Specimen Anatomical Collection Method Collection Time Receive d Time (Source) Location / / Volume Laterality Blood specimen 03/25/2018 7:20 AM 018 7:34 (specimen) CDT AM CDT Cristy Saldana MD LAB - BLOOD ORDERABLES Performing Organization Address City/[facility]/ZIP Code Phon e Number [address] HCG qualitative urine (03/25/2018 6:50 AM CDT) Analysis Performed At Patho logist Time Signature HCG Qual Urine Negative NEG^Negati 03/25/2018 [facility] 7:22 AM CDT [facility] Comment: This test is for screening purposes. ??R esults should be interpreted along with the clinical picture. ??Confirmation te sting is available if warranted by ordering [id number], HCG Quantitative Pregna ncy. Specimen Anatomical Collection Method Collection Time Receive d Time (Source) Location / / Volume Laterality Urine specimen URINE SPECIMEN 03/25/2018 6:50 AM 03/25 7:14 (specimen) OBTAINED BY CLEAN CDT AM CDT CATCH PROCEDURE / Unknown Cristy Saldana MD LAB - URINE ORDERABLES Performing Organization Address City/[facility]/ZIP Code Phon e Number [address] Glucose by meter (03/25/2018 6:23 AM CDT) P athologist Signature Glucose 90 70 - 99 03/25/2018 PO[facility] CARE mg/dL 6:37 AM CDT TEST, GLUCOSE Specimen Anatomical Collection Method Collection Time Receive d Time (Source) Location / / Volume Laterality 03/25/2018 6:23 AM 8 6:37 CDT AM CDT Elder Riley DDS LAB - BEAKER POCT Performing Organization Address City/State/ZIP Code Phon e Number [facility] POINT OF CARE TEST, GLUCOSE POINT OF CARE TEST, GLUCOSE LAB RESULT - HIM SCAN (01/05/2018 12:00 AM CDT) Specimen (Source) Anatomical Location Collection Method / Collectio n Time Received Time / Laterality Volume 01/05/2018 Narrative This result has an attachment that is no t available. Provider Outside NON-BEAKER LAB TESTING documented in this encounter Visit Diagnoses Not on filedocumented in this encounter Administered Medications Inactive Administered Medications - up to 3 most recent administrations Medication Order MAR Action Action Date Dose Rate Site bupivacaine 0.5 % - Given 03/25/2018 8:17 AM 10 mLs Operative EPINEPHrine 1:200,000 CDT Sit e/Surgical Site injection PRN, Starting on Fri03/25/18 at 0817, Intra-procedure chlorhexidine (PERIDEX) 0.12 % solution 10 mL Given 03/25/2018 7:38 AM CDT 10 mLs 10 mL, Swish & Spit, ONCE, On Fri03/25/18 at 0645, For 1 dose, Swish for 1 minute pre-op. paper cup machine tender to surgery, Pre-procedure chlorhexidine (PERIDEX) 0.12 % solution Given 03/25/2018 8:19 AM CDT 15 mLs PRN, Starting on Fri03/25/18 at 0819, Intra-procedure fentaNYL (PF) (SUBLIMAZE) injection 25-50 Given 03/25/2018 11:38 AM CDT 50 mcg mcg 25-50 mcg, Intravenous, EVERY 2 MIN PRN, other, acute pain while in PACU., Starting on Fri03/25/18 at 1103, MAX cumulative dose = 250 mcg. Use fentaNYL (SUBLIMAZE) initially, as a short acting agent for acute pain control. If insufficient, or a longer acting agent is needed, begin morphine or HYDROmorphone (DILAUDID) if ordered. For ordered doses up to 100 mcg give IV Push undiluted over a minimum of 3-5 minutes., PACU Given 03/25/2018 11:04 AM CDT 50 mcg HYDROcodone-acetaminophen (NORCO) 5-325 MG Given 03/25 1:08 PM CDT 1 tablet per tablet 1 tablet 1 tablet, Oral, ONCE, On Fri03/25/18 at 1315, For 1 dose, Maximum acetaminophen dose from all sources= 75 mg/kg/day not to exceed 4 grams, Phase ll HYDROmorphone (PF) (DILAUDID) injection Given 03/25/2018 12:11 P M CDT 0.5 mg 0.3-0.5 mg 0.3-0.5 mg, Intravenous, EVERY 10 MIN PRN, other, acute pain. May administer if Respiratory Rate is greater than 10, Starting on Fri03/25/18 at 1104, Max cumulative dose = 2 mg If fentaNYL (SUBLIMAZE) is also ordered, use HYDROmorphone (DILAUDID) if pain control insufficient with fentaNYL (SUMBLIMAZE) or a longer acting agent is needed. For ordered doses up to 4 mg give IV Push undiluted. Administer each 2mg over 2-5 minutes., PACU/Phase II Given 03/25/2018 11:52 AM CDT 0.2 mg Given 03/25/2018 11:21 AM CDT 0.3 mg lactated ringers infusion at 100 mL/hr, Intravenous, CONTINUOUS, Continue until IV catheter is weaned, PACU/Phase II, Starting on Fri03/25/18 at 1115, Until Fri03/25/18 at 1619 meperidine (DEMEROL) injection 12.5 mg 12.5 mg, Intravenous, EVERY 15 MIN PRN, post anesthesia shivering, Starting on Fri03/25/18 at 1104, For 2 doses, Give IV Pu sh undiluted. 10-40 mg over 2-3 minutes, up to 125 mg over 3-15 minutes, PACU/Phase II naloxone (NARCAN) injection 0.1-0.4 mg 0.1-0.4 mg, Intravenous, EVERY 2 MIN PRN , opioid reversal, Starting on Fri03/25/18 at 1104, For 24 hours, For apnea or imminent respirato ry arrest: give 0.4 mg IV undiluted Q 2 minutes PRN until desired degree of reversal is obtained, stop opioid and notify provider. Continue monitoring until dischar ge are criteria met for a minimum of 2 hours. For severe sedation, decrease in respiratory depth, quality or Respiratory Rate greater than 8: give 0. 1 mg IV Q 2 minutes x 3 doses, stop opioid and notify provider. Try to minimize reversal of analg esia especially in end-of-life patients. Continue monitorin g until discharge criteria are met for a minimum of 2 hours. For ordered doses up to 2mg give IVP. Give each 0.4mg over 15 seconds in emergency situations. For non -emergent situations further dilute in 9mL of NS to facilitate titration of response., PACU/Phase II ondansetron (ZOFRAN) injection 4 mg 4 mg, Intravenous, EVERY 30 MIN PRN, dimas sea, vomiting, Administer over 2-5 Minutes, Starting on Fri03/25/18 at 1104, For 2 d oses, MAX total dose = 8 mg, including OR dosing. This is step 1 of nausea and vomiting manageme nt. If not resolved in 15 minutes, then go to step 2 [prochlorpera zine (COMPAZINE) if ordered]. Irritant. For ordered doses up to 4 mg, give IV Push u ndiluted over 2-5 minutes., PACU/Phase II ondansetron (ZOFRAN-ODT) ODT tab 4 mg 4 mg, Oral, EVERY 30 MIN PRN, nausea, vo miting, Starting on Fri03/25/18 at 1104, For 2 doses, MAX total dose = 8 mg, incl uding OR dosing. This is step 1 of nausea and vomiting management. If not resolved in 15 minutes , then go to step 2 [prochlorperazine (COMPAZINE) if ordered ]. With dry hands, peel back foil backing and gently remove tablet; do not push oral disintegrat ing tablet through foil backing; administer immediately on tongu e and oral disintegrating tablet dissolves in seconds; then swallow with saliva; liquid not requi red., PACU/Phase II ORAL Pain Medications - may administer a s ordered by surgeon for take home use CONTINUOUS PRN, Starting on Fri03/25/18 at 1104, Until Fri03/25/18 at 1619, May administer oral pain medications as ordered by surgeon for take home use. Discontinue IV pain medication prior to administration of oral pain medication., PACU/Phase II prochlorperazine (COMPAZINE) injection 1 0 mg 10 mg, Intravenous, EVERY 6 HOURS PRN, nausea, vomitin g, Administer over 1-2 Minutes, Starting on Fri03/25/18 at 1104, This is Step 2 of nausea and vomiting management. If nausea not resolved in 15 minutes, give metoclopramide (REGLAN) if ordered [step 3 of nausea and vomiting m anagement]. For ordered doses up to 10 mg, give IV Push undiluted. Each 5mg over 1 minute., PACU/ Phase II sodium chloride 0.9% (bottle) irrigation Given 03/25/2018 10:31 AM CDT 800 mLs PRN, Starting on Fri03/25/18 at 1031, Intra-procedure documented in this encounter Active and Recently Administered Medications Times are shown in CDT. Scheduled Medication Order 03/23/2018 03/24/2018 03/25/2018 chlorhexidine (PERIDEX) 0.12 % solution 10 mL (COMPLETED) 0738 (Given - Provider: Lupe Swanson, NORA) 10 mL, Swish & Spit, ONCE, Fri03/25/18 a t 0645, For 1 dose, Swish for 1 minute pre-op. paper cup machine tender to surgery, Pre-procedure clindamycin (CLEOCIN) infusion 900 mg (COMPLETED) 0820 (Given - Provider: Brayan Esparza, CHILD WELFARE SPECIALIST DOOR CLOSER MECHANIC) 900 mg, Intravenous, PRE-OP/PRE-PROCEDUR E, Starting Fri03/25/18 at 0644, For 1 dose, Give first dose within 1 hour PRIOR to incision., Indications: Perioperative Pharmacoprophylaxis, Pre-procedure HYDROcodone-acetaminophen (NORCO) 5-325 MG per tablet 1 tablet ( COMPLETED) 1308 (Given - Provider: See Rothman, NORA) 1 tablet, Oral, ONCE, Fri03/25/18 at 131 5, For 1 dose, Maximum acetaminophen dose from all sources= 75 mg/kg/day not to exceed 4 grams, Phase ll Continuous Medication Order 03/23/2018 03/24/2018 03/25/2018 lactated ringers infusion 1115 ( Canceled Entry - Provider: Orders Generic Provider - Comment: Automatically canceled at discontinue of medication order) at 100 mL/hr, Intravenous, CONTINUOUS, C ontinue until IV catheter is weaned, PACU/Phase II, Starting Fri03/25/18 at 1115, Until Fri03/25/18 at 1619 PRN Medication Order 03/23/2018 03/24/2018 03/25/2018 bupivacaine 0.5 % - EPINEPHrine 1:200,000 injection (CANCELED) 0817 (Given - Provider: Marshall Contreras MD) PRN, Starting Fri03/25/18 at 0817, Intra-procedure chlorhexidine (PERIDEX) 0.12 % solution (CANCELED) 0819 (Given - Provider: Marshall Contreras MD) PRN, Starting Fri03/25/18 at 0819, Intra-procedure fentaNYL (PF) (SUBLIMAZE) injection 25-50 mcg (CANCELED) 1104 (Given - Provider: Carlos Ashby RN)1138 (Given - Provider: Carlos Ashby RN) 25-50 mcg, Intravenous, EVERY 2 MIN PRN, Starting Fri03/25/18 at 1103, other, acute pain while in PACU., MAX cumulative dose = 250 mcg. Use fentaNYL (SUBLIMAZE) initially, as a short acting agent for ac selin pain control. If insufficient, or a longer acting agent is needed, begin morphine or HYDROmorphone (DILAUDID) if ordered. For ordered doses up to 100 mcg give IV Push undiluted over a minimum of 3-5 minutes., PACU HYDROmorphone (PF) (DILAUDID) injection 0.3-0.5 mg 1121 (Given - Provider: Carlos Ashby RN)1152 (Given - Provider: Carlos Ashby, RN)1211 (Given - Provider: Carlos Ashby, RN) 0.3-0.5 mg, Intravenous, EVERY 10 MIN WA N, Starting Fri03/25/18 at 1104, Until Fri03/25/18 at 1619, other, acute pain. May administer if Respiratory Rate is greater than 10, PACU/Phase II, Max cumulativ e dose = 2 mg If fentaNYL (SUBLIMAZE) is also ordered, use HYDROmorphone (DILAUDID) if pain control insufficient with fentaNYL (SUMBLIMAZE) or a longer acting agent is needed. For ordered doses up to 4 mg give IV Push undiluted. Administer each 2mg over 2-5 minutes. meperidine (DEMEROL) injection 12.5 mg 12.5 mg, Intravenous, EVERY 15 MIN PRN, 2 doses, Starting Fri03/25/18 at 1104, Until Fri03/25/18 at 1619, post anesthesia shivering, PACU/Phase II, Give IV Push undiluted. 10-40 mg over 2-3 minutes, up to 125 mg over 3-15 minutes naloxone (NARCAN) injection 0.1-0.4 mg 0.1-0.4 mg, Intravenous, EVERY 2 MIN PRN , opioid reversal, Starting Fri03/25/18 at 1104, For 24 hours, For apnea or imminent respiratory arrest: give 0.4 mg IV undiluted Q 2 minutes PRN until desired de gree of reversal is obtained, stop opioi d and notify provider. Continue monitoring until discharge are criteria met for a minimum of 2 hours. For severe sedation, decrease in respiratory depth, quality or Respiratory Rate greater than 8: give 0.1 mg IV Q 2 minutes x 3 doses, stop opioid and notify provider. Try to minimize reversal of analgesia especially in end-of-life patients. Continue monitoring u ntil discharge criteria are met for a mi nimum of 2 hours. For ordered doses up to 2mg give IVP. Give each 0.4mg over 15 seconds in emergency situations. For non-emergent situations further dilute in 9mL of NS to facilitate titration of response., PACU/Phase II ondansetron (ZOFRAN) injection 4 mg(Linked Group 1) 4 mg, Intravenous, EVERY 30 MIN PRN, dimas sea, vomiting, Administer over 2-5 Minutes, Starting Fri03/25/18 at 1104, For 2 doses, MAX total dose = 8 mg, including OR dosing. This is step 1 of nausea and vo miting management. If not resolved in 15 minutes, then go to step 2 [prochlorperazine (COMPAZINE) if ordered]. Irritant. For ordered doses up to 4 mg, give IV Push undiluted over 2-5 minutes., PACU/Phase II ondansetron (ZOFRAN-ODT) ODT tab 4 mg(Linked Group 1) 4 mg, Oral, EVERY 30 MIN PRN, nausea, vo miting, Starting Fri03/25/18 at 1104, For 2 doses, MAX total dose = 8 mg, including OR dosing. This is step 1 of nausea and vomiting management. If not resolved i n 15 minutes, then go to step 2 [prochlo rperazine (COMPAZINE) if ordered]. With dry hands, peel back foil backing and gently remove tablet; do not push oral disintegrating tablet through foil backing; a dminister immediately on tongue and oral disintegrating tablet dissolves in seconds; then swallow with saliva; liquid not required., PACU/Phase II ORAL Pain Medications - may administer as ordered by surgeon for take home use CONTINUOUS PRN, Starting Fri03/25/18 at 1104, Until Fri03/25/18 at 1619, May administer oral pain medications as ordered by surgeon for take home use. Discontinue IV pain medication prior to administration of oral pain medication., PACU/Phase II prochlorperazine (COMPAZINE) injection 10 mg 10 mg, Intravenous, EVERY 6 HOURS PRN, n ausea, vomiting, Administer over 1-2 Minutes, Starting Fri03/25/18 at 1104, This is Step 2 of nausea and vomiting management. If nausea not resolved in 15 minutes , give metoclopramide (REGLAN) if ordere d [step 3 of nausea and vomiting management]. For ordered doses up to 10 mg, give IV Push undiluted. Each 5mg over 1 minute., PACU/Phase II sodium chloride 0.9% (bottle) irrigation (CANCELED) 1031 (Given - Provider: Elder Riley DDS) PRN, Starting Fri03/25/18 at 1031, Intra-procedure Linked Groups Order Group 1: ondansetron (ZOFRAN-ODT) ODT tab 4 mgJump to med 4 mg, Oral, EVERY 30 MIN PRN, nausea, vo miting, Starting Fri03/25/18 at 1104, For 2 doses
MAX total dose = 8 mg, including OR dosing. This is step 1 of nausea and vomiting management. If not resolved in 15 minutes, the n go to step 2 [prochlorperazine (COMPAZINE) if ordered]. With dry hands, peel back foil backing and gently remove tablet; do not push oral disintegr ating tablet through foil backing; admin ister immediately on tongue and oral disintegrating tablet dissolves in seconds; then swallow with saliva; liquid not required.
PACU/Phase II Or ondansetron (ZOFRAN) injection 4 mgJump to med 4 mg, Intravenous, EVERY 30 MIN PRN, dimas sea, vomiting, Administer over 2-5 Minutes, Starting 03/25/18 at 1104, For 2 doses
MAX total dose = 8 mg, including OR dosing. This is step 1 of nause a and vomiting management. If not resolved in 15 minutes, then go to step 2 [prochlorperazine (COMPAZINE) if ordered]. Irritant. For ordered doses up to 4 mg, give IV Push undiluted over 2-5 minutes.
PACU/Phase II documented in this encounter Care Teams Institute Director Relationship Specialty Start Date End Date Pepper Palencia MD PCP - General Family Practice 03/06/[address] [address] documented as of this encounter
--- OUTSIDE RECORDS SUMMARY | 2022-03-13 15:42 | XMS_ITS | Encounter Summary ---
:1980 Author Organization [place] Address [address] [place] [address] Care Team Providers Name Role Phone Pepper Palencia MD Primary Care Provider [phone] Encounter Details Date Type Department Care Team Description 12/29/2018 Travel Social History Tobacco Use Types Packs/Day Years [...] Diagnoses Not on filedocumented in this encounter Care Teams Fleet Mechanic Relationship Specialty Start Date End Date Pepper Palencia MD PCP - General Family Practice 03/06/[address] [address] documented as of this encounter
--- OUTSIDE RECORDS SUMMARY | 2022-03-13 15:42 | XMS_ITS | Encounter Summary ---
:1980 Author Organization [place] Address [address] [place] [address]. [place] [address] Care Team Providers Name Role Phone Pepper Palencia MD Primary Care Provider [phone] Encounter Details Date Type Department Care Team Description 11/27/2018 Medical Correspondence [facility], LAB ORDER Health Info [facility] Non-Provider [facility] [address] [place] [address] Social History Tobacco Use Types Packs/Day Years [...] on filedocumented in this encounter Care Teams Sexual Assault Response Coordinator Relationship Specialty Start Date End Date Pepper Palencia MD PCP - General Family Practice 03/06/[address] [address] documented as of this encounter
--- OUTSIDE RECORDS SUMMARY | 2022-03-13 15:42 | XMS_ITS | Clinical Summary ---
:1980 Author Organization [place] Address [address] [place] [address] Care Team Providers Name Role Phone Pepper Palencia MD Primary Care Provider [phone] Allergies Active Allergy Reactions Severity Noted Date Comments Penicillins 06/19/2016 Pt stated she g ets a yeast infection Medications Medication Sig Dispensed Refills Start Date End Date Status albuterol (PROAIR Inhale 2 puffs 0 Active HFA/PROVENTIL HFA/VENTOLIN into the lungs HFA) 108 (90 Base) MCG/ACT every 6 hours inhalerIndications: albuteral MCI Ventolin HFA 90 mcgm FLUOXETINE HCL PO Take 10 mg by 0 Active mouth daily VITAMIN D, Take 3,000 0 Active CHOLECALCIFEROL, Units by mouth POIndications: Vitamin D daily 3000 daily BuPROPion HCl (WELLBUTRIN Take 300 mg by 0 Active PO) mouth daily chlorhexidine (PERIDEX) Swish and spit 473 mL 0 03/25/2018 Active 0.12 % 15 mLs in solutionIndications: mouth 2 times Bilateral daily temporomandibular joint pain Additional Information Patient not taking. Reported on 04/20/2019 ibuprofen (ADVIL/MOTRIN) 600 MG Take 1 tablet (600 30 tablet 1 03/25/2018 Active tabletIndications: Bilateral mg) by mouth every 6 temporomandibular joint pain hours as needed for moderate pain Additional Information Patient not taking. Reported on 04/20/2019 HYDROcodone-acetaminophen (NORCO) Take 1 tablet by 8 tablet 0 03/25/2018 Active 5-325 MG per tabletIndications: mouth every 6 Bilateral temporomandibular joint hours as needed pain for pain Additional Information Patient not taking. Reported on 04/20/2019 hydrocortisone (CORTAID) 1 % Apply sparingly to upper 30 g 0 03/25/2018 Active creamIndications: Bilateral and lower lip three times temporomandibular joint pain daily to help improve swelling. Additional Information Patient not taking. Reported on 04/20/2019 acetaminophen (TYLENOL) 325 MG Take 1 tablet (325 30 tablet 0 03/25/2018 Active tabletIndications: Bilateral mg) by mouth every 6 temporomandibular joint pain hours as needed for mild pain Additional Information Patient not taking. 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 06/19/2016 Social History Tobacco Use Types Packs/Day Years [...] Assigned at Date Recorded Not on file Last Filed Vital Signs Vital Sign Reading Time Taken Comments Blood Pressure 110/68 04/20/2019 6:29 PM CDT Pulse 74 04/20/2019 6:29 PM CDT Temperature 36.7 ??C (98.1 ??F) 04/20/2019 6:29 PM CDT Respiratory Rate 16 03/25/2018 2:00 PM CDT Oxygen Saturation 100% 04/20/2019 6:29 PM CDT Inhaled Oxygen Concentration - - Weight 83.9 kg (185 lb) 04/20/2019 6:29 PM CDT Height 165.1 cm (5' 5) 03/25/2018 6:31 AM CDT Body Mass Index 30.79 03/25/2018 6:31 AM CDT Plan of Treatment Health Maintenance Due Date Last Done Comments ADVANCE CARE PLANNING 1982 ANNUAL REVIEW OF HM ORDERS 1982 PREVENTIVE CARE VISIT 1982 COVID-19 Vaccine (#1) 1987 HIV SCREENING 1997 HEPATITIS C SCREENING 2000 PAP 2003 DTAP/TDAP/TD IMMUNIZATION (1 2007 - Tdap) PHQ-2 (once per calendar 07/28/2021 year) INFLUENZA VACCINE (Season 03/28/2022 06/04/2017, Ended) 04/26/2012, 04/22/2011 HEPATITIS B IMMUNIZATION Aged Out 03/26/2019, No long er eligible based 04/03/2008, on patient's age to 10/02/2007 complete this to pic IPV IMMUNIZATION Aged Out No longer eligi ble based on patient's age to complete this to pic MENINGITIS IMMUNIZATION Aged Out No longe r eligible based on patient's age to complete this to pic Pneumococcal Vaccine: Aged Out No longer eligible based Pediatrics (0 to 5 Years) and on patient's age to At-Risk Patients (6 to 64 comple te this topic Years) Medical Devices Implanted Type Area Glass Carrier Device Shelf Model / Identifier Expiration Serial / Date Lot Graft Alloderm Med Countour 9.6x19.3cm Chg Per Sq Cm= 132 Bone/T is Left: [employer] 11/24/2017 [id number] / Implanted: Qty: 132 on 09/25/2016 by Lore Cai MD at [facility] braden/[employer]iol [employer] / ogic [id number] Natrelle Inspira Smooth Round Extra-Full Profile Gel Breast Impl ant Right: [employer] 05/29/2021 [id number] / Implanted: Qty: 1 on 05/07/2017 by Lore Traore MD at [facility] Breast [id number] / [id number] Explanted Type Area Glass Carrier Device Shelf Model / Identifier Expiration Serial / Date Lot Tissue Peace Officer Implant Allergan 500ml [id number] Breast Right: [employer] 09/25/2019 [id number] / Implanted: Qty: 1 on 09/25/2016 by Lore Traore MD at [facility] Implant/Tis Breast [id number] / Explanted: Qty: 1 on 05/07/2017 by Lore Traore MD at [facility] braden Peace Officer Cath [place] 6fr [id number] Catheter CR [employer]ARD [employer] [id number] / Explanted: Qty: 1 on 09/25/2016 at [facility] L / Insurance Payer Benefit Plan / Subscriber ID Effective Phone Address T ype Group Dates PREFERREDONE PREFERREDONE [id number] 2021-Prese [phone] [address] [place] [id number] PPO [employer] [address] [place] [address] Advance Directives For more information, please contact: [phone] Latest Code Status on File Code Status Date Activated Date Inactivated Comments Full Code 09/25/2016 6:10 PM 09/26/2016 7:11 PM Care Teams Metalsmith Apprentice Relationship Specialty Start Date End Date Pepper Palencia MD PCP - General Family Practice 03/06/[address] [address]
--- OUTSIDE RECORDS SUMMARY | 2022-03-13 15:42 | XMS_ITS | Encounter Summary ---
:1980 Author Organization [place] Address [address] [place] [address] Care Team Providers Name Role Phone Pepper Palencia MD Primary Care Provider [phone] Encounter Details Date Type Department Care Team Description 04/20/2019 Travel Social History Tobacco Use Types Packs/Day [...] on filedocumented in this encounter Care Teams Reference Librarian Relationship Specialty Start Date End Date Pepper Palencia MD PCP - General Family Practice 03/06/[address] [address] documented as of this encounter
--- OUTSIDE RECORDS SUMMARY | 2022-03-13 15:43 | XMS_ITS | Encounter Summary ---
:1980 Author Organization [place] Address [facility] [place] [address] Care Team Providers Name Role Phone Niranjan Borrero MD Primary Care Provider Encounter Details Date Type Department Care Team Description 09/02/2016 Orders Only [facility] Spencer Blunt neoplasm of [facility] Imaging MD See right breast (H) [address] (Primary Dx) [facility] [id number] [address] [facility] [id number] Social History Tobacco Use Types Packs/Day Years Used Date Never Smoker Alcohol Use Standard Drinks/Week Comments Not Asked 0 (1 standard drink = 0.6 oz pure alcoho l) Sex Assigned at Date Recorded Not on file documented as of this encounter Plan of Treatment Not on filedocumented as of this encounter Results NM Lymphoscintigraphy Injection only (09/25/2016 11:29 AM COFFEE SHOP AIDE) Anatomical Region Laterality Modality Breast Nuclear Medicine Specimen (Source) Anatomical Location Collection Method / Collectio n Time Received Time / Laterality Volume Narrative 09/25/2016 1:43 PM COFFEE SHOP AIDE RADIONUCLIDE SENTINEL NODE INJECTION, RIGHT BREAST - September 25, 2016 11:29 AM This report documents the injection of . 5mci TC Lymphoseek in RT Breast @ 1122am by the nuclear fuels reclamation engineer. No reported complications. No imaging was performed. JOLLY CREWS MD Procedure Note Jolly Crews MD - 09/25/2016F ormatting of this note might be different from the original. RADIONUCLIDE SENTINEL NODE INJECTION, RI GHT BREAST - September 25, 2016 11:29 AM This report documents the injection of . 5mci TC Lymphoseek in RT Breast @ 1122am by the nuclear fuels reclamation engineer. No reported complications. No imaging was performed. JOLLY CREWS MD Spencer Blunt MD IMG NM ORDERABLES documented in this encounter Visit Diagnoses Diagnosis Malignant neoplasm of right breast (H) - Primary Malignant neoplasm of breast (female), u nspecified site Malignant neoplasm of right breast (H) Malignant neoplasm of breast (female), u nspecified site documented in this encounter Care Teams Periodontal Assistant Relationship Specialty Start Date End Date Niranjan Borrero MD PCP - General Surgery 06/18/16 09/24/16 documented as of this encounter
--- OUTSIDE RECORDS SUMMARY | 2022-03-13 15:43 | XMS_ITS | Encounter Summary ---
:1980 Author Organization [facility] Address [address] [place] [address] Care Team Providers Name Role Phone Unavailable Primary Care Provider Unavailable Encounter Details Date Type Department Care Team Description 11/06/2017 Orders Only [facility] on, NATALIE Bae, Other Dis ease [place]cology [place] [address] [facility] [address] [place] [id number] [phone] Social History Tobacco Use Types Packs/Day Years Used Date Smoking Tobacco: Never Sex Assigned at Date Recorded Not on file documented as of this encounter Plan of Treatment Not on filedocumented as of this encounter Visit Diagnoses Diagnosis Genetic Carrier Of Other Disease documented in this encounter
--- OUTSIDE RECORDS SUMMARY | 2022-03-13 15:43 | XMS_ITS | Encounter Summary ---
:1980 Author Organization [facility] Address [address] [place] [id number] Care Team Providers Name Role Phone Unavailable Primary Care Provider Unavailable Encounter Details Date Type Department Care Team Description 10/20/2016 Hospital Encounter HX [facility] Arun Richmond M.D. [address] [place] [address] 021 (Wo rk) Social History Tobacco Use Types Packs/Day Years Used Date Smoking Tobacco: Never Assessed Sex Assigned at Date Recorded Not on file documented as of this encounter Last Filed Vital Signs Vital Sign Reading Time Taken Comments Blood Pressure 127/82 10/20/2016 2:21 AM CDT Pulse 86 10/20/2016 2:21 AM CDT Temperature - - Respiratory Rate 15 10/20/2016 2:21 AM CDT Oxygen Saturation - - Inhaled Oxygen Concentration - - Weight 65.5 kg (144 lb 6.4 oz) 10/20/2016 12:58 AM CDT Height - - Body Mass Index 24.5 04/05/2016 2:04 PM CDT documented in this encounter Discharge Summaries Radha Naranjo R.N. - 10/20/2016 2:26 AM CDT ED Discharge Instructions [address] [address] Name: BHARTI ARRINGTON Date of : 1980 12:00 AM Visit Date: 10/20/2016 12:52 AM [facility] Number: [id number] Address: [address] [place] [phone] Primary Care Provider: PCP, NICKI IMPORTANT: [facility] in [place] would like to thank you for allowing us to assistyou with your healthcare needs. The following includes patient education materials and information regarding your injury/illness. Diagnosis: Dehiscence Wound External Operation Initial Follow-Up Instructions: With: Address: When: Follow up with primary care provider Within 2 weeks Comments: For suture removal. Your Upcoming Appointments: Date Time Location Provider No Appointments found Patient Education Materials: Recognizing and Treating Wound Infection Wounds can become infected with harmful bacteria. This prevents healing and increases the risk of scars. In some cases, the infection may spread to other parts of the body. And infection with the bacteria that cause tetanus can be fatal. Know what to watch for and get prompt treatment for infection. Risk Factors A wound is more likely to become infected if it: ?? Results from a puncture, such as from a nail or piece of glass. ?? Results from a human or animal bite. ?? Isn't cleaned or treated within 8 hours. ?? Occurs in your hand, foot, leg, armpit, or groin. ?? Contains dirt or saliva. ?? Heals very slowly. ?? Occurs in a person with diabetes, alcoholism, or a compromised immune system. Symptoms of Infection Call your healthcare provider at the first sign of infection, such as: ?? Yellow, yellow-green, or foul-smelling drainage from a wound ?? Increased pain, swelling, or redness in or near a wound ?? A change in the color or size of a wound ?? Red streaks in the skin around the wound ?? Fever Preventing Wound Infection Follow these steps to help keep wounds from developing infection: Wash the wound right away with soap and water. Apply a small amount of antibiotic ointment. You can buy thisat the [employer] without a prescription. Cover wounds with a bandage or gauze dressing. Keep the wound clean and dry for the first 24 hours. Change the dressing daily using sterile gloves. Treatment Treatment is likely to depend on the type and extent of your infection. Your healthcare provider mayprescribe oral antibiotics to help fight bacteria. He or she may also flush the wound with an antibiotic solution or apply an antibiotic ointment. Sometimes an abscess (a pocket of pus) may form. In that case, the abscess will be opened and the fluid drained. You may need hospital care if the infection is very severe. ?? [id number] [facility], [address] [place] [address], [place] [address]. All rights reserved. This information is not intended as a substitute for professional medical care. Always follow your healthcare professional's instructions. Wound Care You have a break in the skin. This wound may be due to an injury or it may be the result of a surgical procedure. Closing the wound helps stop bleeding, protects the wound from infection, and speeds healing. The type of closure that is used depends on the size and location of the wound. Options include sutures (stitches), strips of surgical tape, skin adhesive (glue), or yessica. Home care Medications may be prescribed for pain if needed. Or an cjgy-gwq-vbvflxu (OTC) pain reliever, such as ibuprofen, may be recommended. If you have chronic kidney disease or ever had a stomach ulcer or gastrointestinal bleeding, talk with your doctor before taking any OTC medications. In certain cases, antibiotics may be prescribed to help prevent infection. If antibiotics are prescribed, take them exactly as directed for as long as directed. Do not stop taking your antibiotics until they are all gone,even if you feel better. General care: ?? Follow the doctors instructions on how to care for the wound. ?? Wash your hands with soap and warm water before and after caring for the wound. This helps prevent infection. ?? If a bandage was applied, change it once a day or as directed. If at any time the bandage becomeswet or dirty, replace it with a new one. ?? Unless told otherwise, avoid soaking the wound in water. Take showers or sponge baths instead of tub baths. Do not scrub or pick at the wound. ?? [id number] not go swimming. ?? If you have a bandage and it gets wet, use a clean cloth to gently pat the wound dry. Then replace the bandage with a dry one. ?? Do not scratch, rub, or pick at the area. ?? Watch for signs of infection (listed below). Any wound can get infected, even if you are taking antibiotics. Seek care right away if you see any possible signs of infection. Care for specific closures: ?? Sutures: Clean the wound daily. To do this, remove the bandage and gently wash the area with soapand warm water. After cleaning, apply a thin layer of antibiotic ointment if recommended. Then applya new bandage. Sutures on the outside of the skin will need to be removed by your health care provider in 7--10 days. ?? Surgical tape: Keep the area dry. If it gets wet, blot it dry with a towel. Surgical tape closures usually fall off within 7-- days. If they have not fallen off after 10 days, you can remove them yourself. To remove the tape, use mineral oil or petroleum jelly on a cotton ball to gently rub the adhesive. ?? Skin adhesive: You may shower or bathe as usual, but do not use soaps, lotions, or ointments on the wound area. Do not scrub the wound. After bathing, pat the wound dry with a soft towel. Do not apply liquids (such as peroxide), ointments, or creams to the wound while the strips or film are in place. Do not scratch, rub, or pick at the strips or film. Do not place tape directly over the strips or film. Skin adhesive film will fall off naturally in 5--10 days. If it does not peel off in 10 days, gently rub petroleum jelly or an ointment onto the film. ?? Yessica: Take showers or sponge baths. Do not take tub baths. Do not use lotions on the wound area. The area may be cleaned with soap and water. Do not scrub the wound. Pat it dry with a clean soft cloth or towel. Antibiotic ointment may be applied if advised to do so by your health care provider. S taples will need to be removed by your health care provider in 10--14 days. Follow-up care Follow up with your health care provider as directed by the doctor or our staff. If you have suturesor yessica, return for their removal as directed. When to seek medical care Get prompt medical attention if any of the following occur: ?? Signs of infection: ?? Fever of 100.4?F (38?C) or higher, or as directed by your health care provider ?? Increasing pain in the wound ?? Increasing redness or swelling ?? Pus or bad-smelling drainage from the wound ?? Wound bleeds more than a small amount or wont stop bleeding ?? Wound edges come apart ?? Numbness or weakness in the wound area that doesnt go away ?? [phone] Candy Camacho, [address] [place] [address], [place] [address]. All rights reserved. This information is not intended as a substitute for professional medical care. Always follow your healthcare professional's instructions. Consider Using Patient Online Services Patient Online [employer] is a secure online and Mobile application that lets you: ?? View lab and test results ?? View portions of your medical record including clinical notes, immunizations and discharge summaries ?? Request an appointment or medication refill ?? Review your appointment schedule ?? Send secure messages to your care team Its easy to create an account if you dont have one. Go to [email or web address] and click on Create Your Account. Then, follow the directions to complete the online form. Youll be asked for your [facility] number which you can find at the top of this document. ED Tests and Procedures: Order Status Discharge Prescriptions & Home Medications: Medication/Strength Dose Route Frequency Indications/Special Instructions/Comments/Notes Attention: If you have any medications at home not on this list, DO NOT take them until you contact your provider for clarification. Give a copy of your medication list to your primary care provider. Update your medication list any time medications or doses are changed and carry your medication list at all times in case of emergency. IMPORTANT: We examined and treated you today on an emergency basis only. This was not a substitute for, or an effort to provide, complete medical care. In most cases, you must let your doctor check youagain. Tell your doctor about any new or lasting problems. We cannot recognize and treat all injuries or illnesses in one Emergency Department visit. If you had special tests, such as EKG's or X- rays, we will review them again within 24 hours. We will call you if there are any new suggestions. Please follow the instructions above carefully. If you are being transferred to another facility, your follow up plan of care will be determined by the receiving facility. If you are a patient that is being discharged from the Emergency Department after receiving narcotics or other medications that may impair your judgment you may be a risk to yourself or others if you operate a motor vehicle. We recommend that you arrange a ride home with a responsible libertarian. DARYA Keita DIONE J , or responsible libertarian have received this information and my questions have been answered. I have discussed any challenges I see with this plan with the nurse or physician. Patient Signature or Responsible Libertarian/Relationship Date Time Provider Signature Date Time IMPORTANT: We examined and treated you today on an emergency basis only. This was not a substitute for, or an effort to provide, complete medical care. In most cases, you must let your doctor check youagain. Tell your doctor about any new or lasting problems. We cannot recognize and treat all injuries or illnesses in one Emergency Department visit. If you had special tests, such as EKG's or X- rays, we will review them again within 24 hours. We will call you if there are any new suggestions. Please follow the instructions above carefully. If you are being transferred to another facility, your follow up plan of care will be determined by the receiving facility. If you are a patient that is being discharged from the Emergency Department after receiving narcotics or other medications that may impair your judgment you may be a risk to yourself or others if you operate a motor vehicle. We recommend that you arrange a ride home with a responsible libertarian. DARYA Keita DIONE J , or responsible libertarian have received this information and my questions have been answered. I have discussed any challenges I see with this plan with the nurse or physician. Patient Signature or Responsible Libertarian/Relationship Date Time Provider Signature Date Time This document has images extracted. Please consider using [employer] for all your patient education needs. Source: [employer] Document Id: [id number] Radha Naranjo R.N. - 10/20/2016 2:26 AM CDT ED Depart Summary [facility] Emergency Department Clinical Discharge Summary PERSON INFORMATION Name BHARTI ARRINGTON Age 36 Years 1980 12:00 AM Sex Female Language Citizen Of [place] PCP PCP, ELSEWHERE Marital Status Single Visit Id Visit Reason Post surgical problem; post op wound Specialty Enc Type Emergency Med Service Emergency Medicine Referred by Track Group [facility] ED Discharge 10/20/2016 2:26 AM Tracking Id [id number] Checkout 10/20/2016 2:26 AM Checkin 10/20/2016 12:52 AM Acuity 4 -Less Urgent Dispo Type * Discharged to Home or Self Care Arrival 10/20/2016 12:52 AM Reg Status LOS 000 01:34 Address: [address] [place] [phone] Comment: PROVIDER INFORMATION Provider Role Provider Contact Time LES RICHMOND MD ED Provider 10/20/16 00:55 DIAGNOSIS Dehiscence Wound External Operation Initial Comment: PATIENT EDUCATION INFORMATION Instructions: Recognizing and Treating Wound Infection; WOUND CARE Follow up: With: Address: When: Follow up with primary care provider Within 2 weeks Comments: For suture removal. Source: [employer] Document Id: [id number] documented in this encounter Medications at Time of Discharge Medication Sig Dispensed Refills Start Date End Date albuterol 90 mcg/actuation Inhale 2 puffs every 0 11/18/2014 inhaler 6 (six) hours as needed. documented as of this encounter ED Notes Radha Naranjo R.N. - 10/20/2016 2:25 AM CDT ED Disposition Summary ED Disposition Summary Entered On: 10/20/2016 2:25 CDT Performed On: 10/20/2016 2:25 CDT by RADHA NARANJO LOSS PREVENTION SUPERVISOR Disposition Summary Printed Discharge Instructions Given to Patient : Yes Patient Status at Discharge from ED : Improved 30 Minutes Critical Care : No RADHA NARANJO RN - 10/20/2016 2:25 CDT Source: [employer] Document Id: [id number] CDT!5 Radha Naranjo R.N. - 10/20/2016 2:23 AM CDT ED Treatments and Procedures ED Treatments and Procedures Entered On: 10/20/2016 2:24 CDT Performed On: 10/20/2016 2:23 CDT by RADHA NARANJO RN Incision/Wound Incision/Wound Care Grid Activity : Assessed Wound, Dressing applied Type : Surgical incision Location : Chest Laterality : Left Description : Sutured Color : [place] Length (cm) : 4 cm Drainage : None Surrounding Tissue : Intact Wound Dressing : Medicated ointment/powder, Non adhering, Transparent dressing Neurovascular Status : Neurovascular intact distal to injury, Skin distal to injury warm and pink RADHA NARANJO RN - 10/20/2016 2:23 CDT Source: [employer] Document Id: [id number] CDT!15 Les Richmond M.D. - 10/20/2016 2:10 AM CDT Post surgical problem, Laceration Repair Procedure *ED Patient: BHARTI ARRINGTON Age: 36 years Sex: Female : 1980 Author: LES RICHMOND MD Attachments: None Associated Diagnosis: Dehiscence Wound External Operation Initial Basic Information Time seen: Date & time 10/20/2016 01:00:00. History source: Patient. Arrival mode: Private vehicle, walking. History limitation: None. 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 States she has drainage and it is open. Area is numb so unaware of any pain. . History of Present Illness The patient presents for post-op wound check, surgical problem re-evaluation and Tonight a portion of the left mastectomy wound spontaneously opened and drained a seroma. The implant itself in the areaof the subcutaneous mastectomy is intact.. 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 Post op course: improving. Incision complaints: opening, drainage, mild The patient indicates that her breast skin and nipple are still quite numb.. Risk factors consist of none. Therapy today: none. Associated symptoms: denies fever and denies chills. Review of Systems Constitutional symptoms: Negative except as documented in HPI, but no fever or no chills. Skin symptoms: Negative except as documented in HPI, but no rash. Cardiovascular symptoms: No chest pain. Gastrointestinal symptoms: No nausea or no vomiting. Musculoskeletal symptoms: Negative except as documented in HPI. Neurologic symptoms: No headache. Psychiatric symptoms: Anxiety. Allergy/immunologic symptoms: Negative except as documented in HPI. Additional review of systems information: All other systems reviewed and otherwise negative, All systems reviewed as documented in chart. Health Status Allergies: No active allergies have been recorded.. Past Medical/ Family/ Social History Medical history: Active Ca Breast Female R (ICD-10-CM C50.911). Surgical history: No active procedure history items have been selected or recorded., Bilateral subcutaneous mastectomies. Family history: No family history items have been selected or recorded.. Social history: Alcohol use: Occasionally, Tobacco use: Denies, Occupation: Employed, Family/social situation: Unmarried. Physical Examination Vital Signs: Time: 10/20/2016 00:59:00, Vital Signs 10/20/2016 0:58 CDT Peripheral Pulse Rate 90 /min Respiratory Rate 18 /min SpO2 100 % Systolic Blood Pressure 112 mmHg Diastolic Blood Pressure 88 mmHg Mean Arterial Pressure 96 mmHg , Measurements 10/20/2016 0:58 CDT Dosing Weight 65.50 kg Actual Weight 65.5 kg , SpO2 10/20/2016 0:58 CDT SpO2 100 % . General: Alert, mild distress and anxious. Skin: Warm, dry and There is no in the the more medial edge of the left subcutaneous mastectomy scar. The wound dehiscence is approximately 40% of the total incision. At the depth of the wound is the implant an overlying piece of protective tissue placed at time of the initial surgery. Minimal drainage from the wound is seen.. Chest wall: No tenderness and The left breast implant does seem to be harder than the 1 on the right.. Neurological: Alert and oriented to person, place, time, and situation. Psychiatric: Cooperative and appropriate mood & affect. Procedure Laceration repair Time: 10/20/2016 02:00:00 . Confirmed: Patient, procedure, side, and site correct. Consent: Patient. Description/ repair Laceration 3 cm in length.Shape: linear. Depth: subcutaneous, into fascial layer. Details: clean. Neurovascular/ tendon exam: sensory deficit. Anesthesia: 6 ml, 1% lidocaine, injected locally. Preparation: sterile field established, skin prepped with chlorhexidine. Irrigation: moderate. Debridement: minimal, With a 15 blade. Depression up the skin edges.. Skin closure: # 10 sutures, with 4 -0 Prolene, simple technique, interrupted technique, 540 Vicryl subcutaneous sutures were placed in a buried mattress fashion.. Complexity: 2 layers. Post procedure exam: Circulation, motor, sensory examination intact (With the exception of the postoperative numbness in the shania-incisional area), Bleeding controlled. Complications: None. Patient tolerated: Well. Performed by: Self. Total time: 30 minutes. Notes: Due care with all aspects including injection of lidocaine, wound debridement, and placement of both fascial/subcutaneous and cutaneous sutures to avoid puncturing the implant used for wound check expansion was maintained. This necessitated keeping the wound implant visualized by lifting the cutaneous tissues. In addition the fascial/subcutaneous Vicryl was placed in parallel with the incisionrather than perpendicular to avoid puncturing while lifting the tissue. The cutaneous sutures similarly were placed using eversion of the skin edges and placing the suture needle parallel to the depth of the wound so as to avoid going into the subcutaneous space and thereby into the wound director it project impl ant. There did appear to be an overlay that had protected the implant during the course of the initial repair and that was left in place. There appeared to be no drainage or leakage or sudden gush of fluid during the repair. . Impression and Plan Diagnosis Dehiscence Wound External Operation Initial (Discharge, Emergency medicine, Medical) Plan Condition: Improved, Stable. Disposition: Discharged: Time 10/20/2016 02:11:00, to home. Patient was given the following educational materials: WOUND CARE, Recognizing and Treating Wound Infection. Follow up with: ; Follow up with primary care provider Within 2 weeks For suture removal.. Counseled: Patient, Friend, Regarding diagnosis, Regarding treatment plan, Regarding prescription, Patient indicated understanding of instructions. Orders: Launch Orders Patient Care: Discharge ED Patient (Order Processing): 10/20/2016 2:12 CDT, Once. Electronically Signed By: LES RICHMOND MD On: 10/20/2016 02:25 AM Modified by and Electronically Signed by: LES RICHMOND MD On: 10/20/2016 02:25 AM Source: [employer] Document Id: [id number]} Radha Naranjo R.N. - 10/20/2016 1:52 AM CDT ED Nurse Reassess ED Nurse Reassess Entered On: 10/20/2016 1:53 CDT Performed On: 10/20/2016 1:52 CDT by RADHA NARANJO RN Pain Assessment Pain Symptoms : No RADHA NARANJO RN - 10/20/2016 1:52 CDT Comfort Measures Patient Response : Pt in supine position. Dr Richmond in room with patient assessing wound, providing wound care. Pt tolerating procedure well. RADHA NARANJO RN - 10/20/2016 1:52 CDT Source: [employer] Document Id: [id number] CDT!5 Juan Blake R.N. - 10/20/2016 12:58 AM CDT ED Primary Assessment Document Has Been Updated ED Primary Assessment Entered On: 10/20/2016 0:59 CDT Performed On: 10/20/2016 0:58 CDT by JUAN BLAKE RN Reason For Visit (As Of: 10/20/2016 01:04:54 CDT) Diagnoses(Active) Post surgical problem Date: 10/20/2016 ; Diagnosis Type: Reason For Visit ; Confirmation: Complaint of ; Clinical Dx: Post surgical problem ; Classification: Medical ; Clinical Service: Emergency medicine ; Code: PNED ; Probability: 0 ; Diagnosis Code: [id number] Triage Mode of Arrival ED : Private vehicle, Ambulatory Track : Medical Languages : Citizen Of [place] Vital Signs Assessed : Yes Treatments Prior to Arrival : None Are you ? 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 States she has drainage and it is open. Area is numb so unaware of any pain. Is Patient Female and 13-50 no hysterectomy : Yes JUAN BLAKE RN - 10/20/2016 0:58 CDT Vital Signs Peripheral Pulse Rate : 90 /min Respiratory Rate : 18 /min Systolic Blood Pressure : 112 mmHg Diastolic Blood Pressure : 88 mmHg NIBP Mean : 96 mmHg SpO2 : 100 % Oxygen Saturation Monitoring Frequency : Intermittent Oxygen Therapy : Room air Actual Weight : 65.5 kg Actual Weight Conversion to Pounds : 144.1 lb JUAN BLAKE RN - 10/20/2016 1:02 CDT Pain Assessment Pain Symptoms : No JUAN BLAKE RN - 10/20/2016 1:02 CDT ROXANA ROXANA Level 1 : No ROXANA Level 2 : No ROXANA Level 3 : One JUAN BLAKE RN - 10/20/2016 1:02 CDT DCP GENERIC CODE Tracking Acuity : 4 -Less Urgent Tracking Group : [facility] ED JUAN BLAKE RN - 10/20/2016 1:02 CDT Allergy (As Of: 10/20/2016 01:04:54 CDT) Respiratory Airway : Patent Respirations : Unlabored Respiratory Pattern : Regular JUAN BLAKE RN - 10/20/2016 1:02 CDT Cardiovascular Heart Rhythm : Regular Skin Color : Normal for ethnicity Skin Description : Normal Skin Temperature : Warm JUAN BLAKE RN - 10/20/2016 1:02 CDT Neurological Last Well Time Known : Yes Last Known Well Time : 10/20/2016 0:01 CDT Level of Consciousness : Alert Orientation : Oriented x 3 Characteristics of Speech : Appropriate for age Neuro Patient Stated Symptoms : None JUAN BLAKE RN - 10/20/2016 1:02 CDT ED Psychosocial Affect/Behavior : Calm, Cooperative, Appropriate Domestic Abuse Concerns : None Behavioral Health Screen/Safety Assmt : No JUAN BLAKE RN - 10/20/2016 1:02 CDT Gastrointestinal Nutrition ED : Adequate JUAN BLAKE RN - 10/20/2016 1:02 CDT Musculoskeletal Fall Prevention Education Provided : NA Activity Shiva : Walks frequently Ambulatory Devices : None Musculoskeletal Patient Stated Symptoms : None JUAN BLAKE RN - 10/20/2016 1:02 CDT Source: [employer] Document Id: [id number] CDT!56 documented in this encounter Miscellaneous Notes Miscellaneous - Conversion, Historical Provider Ser - 10/20/2016 2:26 AM CDT Coding Summary-Paper Based CODING DATE: 10/28/2016 FINAL [facility] STATUS: * Discharged to Home or Self Care PAYOR: Medicaid ADMIT DX: T81.31XADisruption of external operation (surgical) wound, not elsewhere classified, initial encounter REASON FOR VISIT DX: T81.31XA Disruption of external operation (surgical) wound, not elsewhere classified, initial encounter FINAL DX: PRINCIPAL: T81.31XA Disruption of external operation (surgical) wound, not elsewhere classified, initial encounter SECONDARY: F41.9 Anxiety disorder, unspecified Y92.[address] or not applicable PROCEDURES DOCTOR NAME DATE NOTE: The code number assigned matches the documented diagnosis and / or procedure in the patient's chart. However, the narrative phrase printed from the coding software may appear abbreviated, or result in slightly different terminology. Coded By: STEVE DUNAWAY Date Saved: 10/28/2016 09:52 am Source: [employer] Document Id: [id number] Miscellaneous - Radha Naranjo RFaheemN. - 10/20/2016 2:25 AM CDT Valuables/Belongings Valuables/Belongings Entered On: 10/20/2016 2:25 CDT Performed On: 10/20/2016 2:25 CDT by RADHA NARANJO RN Valuables/Belongings Home Medication Disposition : None brought in with patient RADHA NARANJO RN - 10/20/2016 2:25 CDT Source: [employer] Document Id: [id number] CDT!3 documented in this encounter Plan of Treatment Not on filedocumented as of this encounter Visit Diagnoses Not on filedocumented in this encounter
--- OUTSIDE RECORDS SUMMARY | 2022-03-13 15:43 | XMS_ITS | Encounter Summary ---
:1980 Author Organization [place] Address [address] [place] [address]. [place] [address] Care Team Providers Name Role Phone Richard Montalvo Primary Care Provider Reason for Visit Reason Comments Surgical Followup PO Right nipple sparing mast ectomy on 09/25/16 Encounter Details Date Type Department Care Team Description [facility] [place] Cui MD examination (Primary [address] ) [address] [place] [address] [place], [place] [address] Social History Tobacco Use Types Packs/Day Years Used Date Never Smoker Alcohol Use Standard Drinks/Week Comments Yes 0 (1 standard drink = 0.6 oz pure alcoho l) occasional Alcohol Habits Answer Date Recorded How often do you have a drink containing alcohol? Not asked How many drinks containing alcohol do you have on a typical Not asked day when you are drinking? How often do you have six or more drinks on one occasion? No t asked Comment: occasional 09/25/2016 Sex Assigned at Date Recorded Not on file documented as of this encounter Progress Notes Spencer Blunt MD - 10/22/2016 12:30 PM CDT Surgery Postop Note Clarice Arrington presents today for surgical followup. she is doing well following bilateral nipple sparing mastectomies. Incisions look fine with no signs of wound infection. She had an episode on her left breast where the incisions but open and a seroma spontaneously drained. There was no evidence of infection and the wound was closed primarily in the emergency department. She is planning on following upwith plastic surgery next week. We reviewed her pathology and this was all encouraging, suggesting apathologic complete response. I expect her to make a complete recovery. Thank you for the opportunity to help in her care. Emmanuel Blunt M.D. [facility] [phone] Please route or send letter to: Primary Care Provider (PCP) and Referring Provider documented in this encounter Plan of Treatment Not on filedocumented as of this encounter Visit Diagnoses Diagnosis Surgery follow-up examination - Primary Follow-up examination, following unspeci fied surgery documented in this encounter Care Teams Skydiving Instructor Relationship Specialty Start Date End Date Richard Montalvo PCP - General Family Practice 09/25/16 03/05/18 [facility] [address] [place] [id number] documented as of this encounter
--- OUTSIDE RECORDS SUMMARY | 2022-03-13 15:43 | XMS_ITS | Encounter Summary ---
:1980 Author Organization [place] Address [address] [place] [address]. [place] [address] Care Team Providers Name Role Phone Richard Montalvo Primary Care Provider Reason for Visit Auth/Cert Specialty Diagnoses / Procedures Referred By Contact Refer red To Contact Surgery Diagnoses BREAST RECONSTRUCTION Sh Periop Services Procedures COMBINED RECONSTRUCT BREAST BILATERAL, IMPLANT PROSTHESIS BILATERAL [address], [address] [place] [address] Phone: Referral ID Status Reason Start Date Expiration Date Visits Requ ested Visits Authorized [id number] 1 1 Encounter Details Date Type Department Care Team Description 05/07/2017 Hospital Encounter [facility] Lore Traore Acquired absence of [place] Phase II MD Merary both breasts and [address] PLASTIC nipples (Primary [place], [place] SURGERY Dx) [id number] [address] [phone] [address] [place], [place] [address] Social History Tobacco Use Types Packs/Day Years [...] Sign Reading Time Taken Comments Blood Pressure 106/68 05/07/2017 10:40 AM CDT Pulse 86 05/07/2017 6:45 AM CDT Temperature 36.9 ??C (98.4 ??F) 05/07/2017 9:45 AM CDT Respiratory Rate 16 05/07/2017 10:40 AM CDT Oxygen Saturation 96% 05/07/2017 10:40 AM CDT Inhaled Oxygen Concentration - - Weight 63.2 kg (139 lb 6 oz) 05/07/2017 6:45 AM CDT Height 165.1 cm (5' 5) 05/07/2017 6:45 AM CDT Body Mass Index 23.19 05/07/2017 6:45 AM CDT documented in this encounter Discharge Instructions Discharge InstructionsTraci Logan RN - 05/07/2017 9:03 AM CDT Same Day Surgery Discharge Instructions for Sedation and General Anesthesia ?? It's not unusual to feel dizzy, light-headed or faint for up to 24 hours after surgery or while taking pain medication. If you have these symptoms: sit for a few minutes before standing and have someone assist you when you get up to walk or use the bathroom. ?? You should rest and relax for the next 24 hours. We recommend you make arrangements to have an adult stay with you for at least 24 hours after your discharge. Avoid hazardous and strenuous activity. ?? DO NOT DRIVE any vehicle or operate mechanical equipment for 24 hours following the end of your surgery. Even though you may feel normal, your reactions may be affected by the medication you have received. ?? Do not drink alcoholic beverages for 24 hours following surgery. ?? Slowly progress to your regular diet as you feel able. It's not unusual to feel nauseated and/or vomit after receiving anesthesia. If you develop these symptoms, drink clear liquids (apple juice, jennifer mehran, broth, 7-up, etc. ) until you feel better. If your nausea and vomiting persists for 24 hours, please notify your surgeon. ?? All narcotic pain medications, along with inactivity and anesthesia, can cause constipation. Drinking plenty of liquids and increasing fiber intake will help. ?? For any questions of a medical nature, call your surgeon. ?? Do not make important decisions for 24 hours. ?? If you had general anesthesia, you may have a sore throat for a couple of days related to the breathing tube used during surgery. You may use Cepacol lozenges to help with this discomfort. If it worsens or if you develop a fever, contact your surgeon. ?? If you feel your pain is not well managed with the pain medications prescribed by your surgeon, please contact your surgeon's office to let them know so they can address your concerns. Discharge Instructions following Breast Surgery [facility] Same Day Surgery Diet: Resume diet as tolerated. Drink plenty of fluids to prevent constipation. Activity: Gentle rotation & stretching of your arms/shoulders will prevent stiffness in joints Increase activity gradually No heavy lifting greater than 10-15 pounds & no strenuous activity until approved by surgeon Bathing/Incision Care: You may shower as directed by surgeon Pat incisions dry. No lotions, powders or perfumes to incisions Tape dressings (steri strips) will fall off in 7-10 days (if present) What to expect: A tingly or itchy sensation around the incision is a normal sign of healing Some clear, pink drainage from incisions is normal. Notify your surgeon for the following signs & symptoms: Redness, warmth, or swelling of the incision Foul smelling or increased drainage Chills or temperature greater than 101??F Pain not controlled by pain medications documented in this encounter Medications at Time of Discharge Medication Sig Dispensed Refills Start Date End Date HYDROcodone-acetaminophe Take 1-2 tablets by 12 tablet 0 03/25/2018 n (NORCO) 5-325 MG per mouth every 4 hours tabletIndications: as needed for Acquired absence of both moderate to severe breasts and nipples pain documented as of this encounter Nursing Notes Keyana Fleming RN - 05/07/2017 10:53 AM CDT Reviewed discharge instructions. All appropriate questions answered. VSS. Medications given to patient. Discharged into the care of her family. Traci Logan RN - 05/07/2017 10:15 AM CDT PNDS met, po per I&O sheet. Pt dressed, up in recliner and transported to Phase 2. Rachel Naqvi RN - 05/07/2017 9:11 AM CDT Patient awake and moving. LMA removed. Rachel Naqvi RN - 05/07/2017 9:06 AM CDT Assumed cares while primary nurse went on morning break documented in this encounter Miscellaneous Notes Op Note - Lore Traore MD - 05/07/2017 8:46 AM CDT PLASTIC SURGERY OPERATIVE NOTE Patient Name: Clarice Arrington Date of Service: 05/07/2017 PREOPERATIVE DIAGNOSES: 1. BREAST RECONSTRUCTION POSTOPERATIVE DIAGNOSES: 1. BREAST RECONSTRUCTION SURGEON: Lore Traore MD OR STAFF: Concrete Block Layer: Liyah Gomez RN Scrub Person: Shellie Hinson ANESTHESIA: General ESTIMATED BLOOD LOSS: * No blood loss amount entered * SPECIMEN(S): * No specimens in log * PROCEDURES: 1. Removal of bilateral tissue knife grinder(s). 2. Placement of bilateral silicone breast implant(s). DESCRIPTION OF PROCEDURE: Clarice Arrington was marked for incisions and taken to the operating room. General anesthesia was administered. The chest area was prepped and draped in a sterile manner. On the left side, an incision was made through the mastectomy scar and dissection was carried down to the underlying pectoralis muscle. The muscle was divided along its fibers. The underlying tissue knife grinder was ruptured and removed from the pocket. Scoring of the capsule was done medially and superiorly. Hemostasis was achieved. A sizer was placed within the pocket and modifications to the pocket were marked. The sizer was removed. Tacking sutures were placed along the medial inframammary fold and this was done with interrupted 2-0 PDS suture. The sizer was replaced and the skin was closed temporarily with renaldo. On the right side, an incision was made through the mastectomy scar and dissection was carried down to the underlying pectoralis muscle. The muscle was divided along its fibers. The underlying tissue knife grinder was ruptured and removed from the pocket. Scoring of the capsule was done superiorly and media lly. Hemostasis was achieved. A sizer was placed and modifications to the pocket were marked. The sizer was removed and the modifications were made along the lateral inframammary fold using interrupted2-0 PDS suture. The sizer was replaced and the skin was closed temporarily with renaldo. The patient was brought to the upright position and symmetry was inspected. A silicone implant was chosen and then patient was returned to the supine position. Both sizers were removed. Each pocket wasirrigated with antibiotic solution and the implants were placed. The pectoralis muscle was reapproximated with interrupted 3-0 monocryl sutures. 0.25 % marcaine was placed within each pocket. The skin incisions were then closed with interrupted 3-0 Monocryl in the subcutaneous tissue and a running 4-0 subcuticular Monocryl suture. Steristrips were placed followed by light dressing was applied and the patient was circumferentiallywrapped with double 4-inch Kolton bandage. Implant Name Type Inv. Item Serial No. [id number] Consultant Lot No. LRB No. Used TISSUE DICTATING MACHINE MECHANIC IMPLANT [employer]ERGAN 500ML [id number] Breast Implant/Tissue Chemical Plant Manager TISSUE DICTATING MACHINE MECHANIC IMPLANT [employer]GAN 500ML [id number] [employer] Left 1 Natrelle inspira smooth round extra-full profile gel breast implant [id number] [employer] [id number] Left 1 TISSUE DICTATING MACHINE MECHANIC IMPLANT [employer]GAN 500ML [id number] Breast Implant/Tissue Chemical Plant Manager TISSUE DICTATING MACHINE MECHANIC IMPLANT [employer]GAN 500ML [id number] [employer] Right 1 Natrelle inspira smooth round extra-full profile gel breast implant [id number] [employer] [phone] Right 1 IMPLANT INFORMATION: Both implants are SRX-700 cc. Lore Traore MD Plastic Surgery [facility] [phone] (office) documented in this encounter Plan of Treatment Not on filedocumented as of this encounter Procedures Procedure Name Priority Date/Time Associated Comments Diagnosis RECONSTRUCTION, 05/07/2017 7:47 AM acquired absence BREAST, BILATERAL, CDT bilateral breasts WITH BREAST IMPLANT INSERTION HCG QUALITATIVE URINE STAT 05/07/2017 6:55 AM Results for this CDT procedure are i n the results section. documented in this encounter Results HCG qualitative urine (05/07/2017 6:55 AM CDT) athologist Signature HCG Qual Urine Negative NEG^Negati 05/07/2017 [facility] 7:43 AM CDT [facility] Comment: This test is for screening purposes. ??R esults should be interpreted along with the clinical picture. ??Confirmation te sting is available if warranted by ordering [id number], HCG Quantitative Pregna ncy. 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 - Primary Acquired absence of breast and nipple documented in this encounter Administered Medications Inactive Administered Medications - up to 3 most recent administrations Medication Order MAR Action Action Date Dose Rate Site acetaminophen (TYLENOL) tablet Given 05/07/2017 7:04 AM CDT 1,00 0 mg 1,000 mg 1,000 mg, Oral, ONCE, On Fri05/07/17 at 0645, For 1 dose, Maximum acetaminophen dose from all sources = 75 mg/kg/day not to exceed 4 gram, Pre-procedure fentaNYL (PF) (SUBLIMAZE) injection 25-5 0 mcg Given 05/07/2017 9:38 AM CDT 50 mcg 25-50 mcg, Intravenous, EVERY 5 MIN PRN, other, acute pain while in PACU., Starting on Fri05/07/17 at 0857, MAX cumulative dose = 250 mcg. Use Fentanyl initially, as a short acting agent for acute pain control. If insufficient, or a longer acting agent is needed, begin Morphine or Hydromorphone if ordered. , PACU HYDROcodone-acetaminophen (NORCO) 5-325 MG Given 05/07 9:51 AM CDT 1 tablet per tablet 1 tablet 1 tablet, Oral, ONCE, On Fri05/07/17 at 1000, For 1 dose, Maximum acetaminophen dose from all sources= 75 mg/kg/day not to exceed 4 grams, PACU ondansetron (ZOFRAN) injection 4 mg 4 mg, Intravenous, EVERY 30 MIN PRN, dimas sea, vomiting, Administer over 2-5 Minutes, Starting on Fri05/07/17 at 0857, For 2 doses, MAX total dose = 8 mg, including OR dosing. This is step 1 of the nausea and vomiting protocol. If not resolved in 15 minutes, then go to step 2 (Prochlorpera zine if ordered). Irritant., PACU/Phase II ondansetron (ZOFRAN-ODT) ODT tab 4 mg 4 mg, Oral, EVERY 30 MIN PRN, nausea, vo miting, Starting on Fri05/07/17 at 0857, For 2 doses, MAX total dose = 8 mg, including OR dosin g. This is step 1 of the nausea and vomiting protocol. If not resolved in 15 mi nutes, then go to step 2 (Prochlorperazine if ordered)., PACU/Phase II documented in this encounter Active and Recently Administered Medications Times are shown in CDT. Scheduled Medication Order 05/05/2017 05/06/2017 05/07/2017 acetaminophen (TYLENOL) tablet 1,000 mg (COMPLETED) 703 (Given - Provider: Margaret Corral RN) 1,000 mg, Oral, ONCE, Fri05/07/17 at 06 45, For 1 dose, Maximum acetaminophen dose from all sources = 75 mg/kg/day not to exceed 4 gram, Pre-procedure clindamycin (CLEOCIN) infusion 900 mg (COMPLETED) 07 (Handoff - Provider: Margaret Corral RN)0751 (Given - Provider: Nereida Saxena APRN CRNA) Routine, 900 mg, Intravenous, PRE-OP/PRE -PROCEDURE, Starting on Fri05/07/17 at 0642, For 1 dose, Give first dose within 1 hour PRIOR to incision., Indications: Perioperative Pharmacoprophylaxis, Pre-procedure HYDROcodone-acetaminophen (NORCO) 5-325 MG per tablet 1 tablet ( COMPLETED) 0951 (Given - Provider: Traci Logan, RN) 1 tablet, Oral, ONCE, On Fri05/07/17 at 1000, For 1 dose, Maximum acetaminophen dose from all sources= 75 mg/kg/day not to exceed 4 grams, PACU Continuous Medication Order 05/05/2017 05/06/2017 05/07/2017 lactated ringers infusion 0900 ( Canceled Entry - Provider: Orders Generic Provider - Comment: Automatically canceled at discontinue of medication order) at 100 mL/hr, Intravenous, CONTINUOUS, C ontinue until IV catheter is weaned, PACU/Phase II, Starting Fri05/07/17 at 0900, Until Fri05/07/17 at 1254 PRN Medication Order 05/05/2017 05/06/2017 05/07/2017 bupivacaine (MARCAINE) 0.25 % injection (CANCELED) 0826 (Given - Provider: Lore Traore MD)0836 (Given - Provider: Lore Traore MD) PRN, Starting Fri05/07/17 at 0826, Intra-procedure clindamycin 900 mg + gentamicin 120 mg + NaCl 0.9 % 1000 mL BISI LE (CANCELED) 0814 (Given - Provider: Lore Traore MD) PRN, Starting Fri05/07/17 at 0814, Intra-procedure fentaNYL (PF) (SUBLIMAZE) injection 25-50 mcg 0938 (Given - Provider: Traci Logan, NORA) 25-50 mcg, Intravenous, EVERY 5 MIN PRN, Starting Fri05/07/17 at 0857, other, acute pain while in PACU., MAX cumulative dose = 250 mcg. Use Fentanyl initially, as a short acting agent for acute pain co ntrol. If insufficient, or a longer acti ng agent is needed, begin Morphine or Hydromorphone if ordered. , PACU fentaNYL (PF) (SUBLIMAZE) injection 25-50 mcg 25-50 mcg, Intravenous, EVERY 15 MIN PRN , Starting Fri05/07/17 at 0857, other, acute pain while in Phase II, MAX cumulative dose = 250 mcg. Use Fentanyl initially, as a short acting agent for acute tamar n control. If insufficient, or a longer acting agent is needed, begin Morphine or Hydromorphone if ordered., Phase ll HYDROmorphone (PF) (DILAUDID) injection 0.3-0.5 mg 0.3-0.5 mg, Intravenous, EVERY 10 MIN MA N, Starting Fri05/07/17 at 0857, Until Fri05/07/17 at 1254, other, acute pain.?May administer if Respiratory Rate is greater than 10, PACU/Phase II, If fenta nyl is also ordered, use HYDROmorphone i f pain control insufficient with fentanyl or a longer acting agent is needed. Max cumulative dose = 2 mg meperidine (DEMEROL) injection 12.5 mg 12.5 mg, Intravenous, EVERY 15 MIN PRN, 2 doses, Starting Fri05/07/17 at 0857, Until Fri05/07/17 at 1254, post anesthesia shivering, PACU/Phase II midazolam (VERSED) injection 0.5-1 mg 0.5-1 mg, Intravenous, EVERY 5 MIN PRN, Starting Fri05/07/17 at 0857, muscle spasms, Max cumulative dose = 2 mg, PACU naloxone (NARCAN) injection 0.1-0.4 mg 0.1-0.4 mg, Intravenous, EVERY 2 MIN PRN , opioid reversal, Starting Fri05/07/17 at 0857, For 24 hours, For apnea or imminent respiratory arrest: give 0.4 mg IV undiluted Q 2 minutes PRN until desired d egree of reversal is obtained, stop opio id and notify provider. Continue monitoring until discharge are criteria met for a minimum of 2 hours. For severe sedation, decrease in respiratory depth, quality or Respiratory Rate greater than 8: giv e 0.1 mg IV Q 2 minutes x 3 doses, stop opioid and notify provider. Try to minimize reversal of analgesia especially in end-of-life patients. Continue monitoring until discharge criteria are met for a minimum of 2 hours., PACU /Phase II ondansetron (ZOFRAN) injection 4 mg(Linked Group 1) 4 mg, Intravenous, EVERY 30 MIN PRN, dimas sea, vomiting, Administer over 2-5 Minutes, Starting Fri05/07/17 at 0857, For 2 doses, MAX total dose = 8 mg, including OR dosing. This is step 1 of the nausea a nd vomiting protocol. If not resolved in 15 minutes, then go to step 2 (Prochlorperazine if ordered). Irritant., PACU/Phase II ondansetron (ZOFRAN-ODT) ODT tab 4 mg(Linked Group 1) 4 mg, Oral, EVERY 30 MIN PRN, nausea, vo miting, Starting Fri05/07/17 at 0857, For 2 doses, MAX total dose = 8 mg, including OR dosing. This is step 1 of the nausea and vomiting protocol. If not resolve d in 15 minutes, then go to step 2 (Proc hlorperazine if ordered)., PACU/Phase II ORAL Pain Medications - may administer as ordered by surgeon for take home use CONTINUOUS PRN, Starting Fri05/07/17 at 0857, Until Fri05/07/17 at 1254, May administer oral pain medications as ordered by surgeon for take home use. Discontinue IV pain medication prior to administration of oral pain medication., PACU/Phase II physostigmine salicylate (ANTILIRIUM) injection 1.2 mg 1.2 mg, Intravenous, ONCE PRN, for non-s pecific reversal of MAGNETO ELECTRICIAN anticholinergic side effects, Starting Fri05/07/17 at 0857, For 1 dose, Infuse no faster than 1 mg per minute. Rapid administration may c ause bradycardia, excessive salivation and seizures., PACU/Phase II Linked Groups Order Group 1: ondansetron (ZOFRAN-ODT) ODT tab 4 mgJump to med 4 mg, Oral, EVERY 30 MIN PRN, nausea, vo miting, Starting Fri05/07/17 at 0857, For 2 doses
MAX total dose = 8 mg, including OR dosing. This is step 1 of the nausea and vomiting protocol.&nb sp; If not resolved in 15 minutes, then go to step 2 (Prochlorperazine if ordered).
PACU/Phase II Or ondansetron (ZOFRAN) injection 4 mgJump to med 4 mg, Intravenous, EVERY 30 MIN PRN, dimas sea, vomiting, Administer over 2-5 Minutes, Starting 05/07/17 at 0857, For 2 doses
MAX total dose = 8 mg, including OR dosing. This is step 1 of the nausea and vomiting protocol. &nbsp ;If not resolved in 15 minutes, then go to step 2 (Prochlorperazine if ordered). Irritant.
PACU/Phase II documented in this encounter Care Teams Antique Jewelry Repairer Relationship Specialty Start Date End Date Richard Montalvo PCP - General Family Practice 09/25/16 03/05/[address] [address] documented as of this encounter
--- OUTSIDE RECORDS SUMMARY | 2022-03-13 15:43 | XMS_ITS | Encounter Summary ---
:1980 Author Organization [facility] Address [address] [place] [id number] Care Team Providers Name Role Phone Unavailable Primary Care Provider Unavailable Reason for Referral Outpatient (Routine) - Closed Specialty Diagnoses / Procedures Referred By Contact Refer red To Contact Oncology Diagnoses Malignant Neoplasm Of Breast Female Right (HCC) Dyspareunia Female Organic Sena Patricio M.D. [facility] Region [address] [place] [phone] Referral ID Status Reason Start Date Expiration Date Visits Requ ested Visits Authorized [id number] Closed 10/10/2020 10/10/2021 1 1 RI/CAT/PET Scan (Routine) - Closed Specialty Diagnoses / Procedures Referred By Contact Refer red To Contact Radiology Diagnoses Malignant Neoplasm Of Breast Female Right (HCC) Dyspareunia Female Sena Dumont M.D. [facility] Region Procedures CT Abdomen Pelvis without and with IV Contrast [address] [place] [phone] Referral ID Status Reason Start Date Expiration Date Visits Requ ested Visits Authorized [id number] Closed 10/10/2020 10/10/2021 1 1 Reason for Visit Reason Comments Consult Breast cancer Encounter Details Date Type Department Care Team Description 10/10/2020 Comprehensive Visit Department of Sena Patricio Neoplasm Of Breast Female Right (HCC) (Primary Dx); Oncology in Tobias Vasquez M.D. Dyspareunia Female [place], [place] [address] [place] [id number] Social History Tobacco Use Types Packs/Day Years Used Date Smoking Tobacco: Never Smokeless Tobacco: Never Sex Assigned at Date Recorded Not on file documented as of this encounter Last Filed Vital Signs Vital Sign Reading Time Taken Comments Blood Pressure 126/72 10/10/2020 1:40 PM CDT Pulse 109 10/10/2020 1:40 PM CDT Temperature 36.3 ??C (97.3 ??F) 10/10/2020 1:40 PM CDT Respiratory Rate 14 10/10/2020 1:40 PM CDT Oxygen Saturation 97% 10/10/2020 1:40 PM CDT Inhaled Oxygen Concentration - - Weight 68.8 kg (151 lb 10.8 oz) 10/10/2020 1:40 PM CDT Height 164 cm (5' 4.57) 10/10/2020 1:40 PM CDT Body Mass Index 25.58 10/10/2020 1:40 PM CDT documented in this encounter Consult Notes Sena Patricio M.D. - 10/10/2020 1:40 PM CDT SUBJECTIVE PRIMARY CARE PHYSICIAN No primary care provider on file. REQUESTING PROVIDER No referring provider defined for this encounter. LOCAL ONCOLOGIST No care food court team member to display PRIMARY [place] ONCOLOGIST No care food court team member to display REASON FOR CONSULT Clarice Arrington is a 40 y.o. female who presents for evaluation for a history of triple negative breast cancer. HISTORY OF PRESENT ILLNESS Oncology History Oncology History No history exists. The patient first noticed pain in her right breast on January 30, 2016. March 13, 2016, she noticed some dimpling while she was showering when she pushed her breasts together in the lower inner quadrant of her right breast. The pain had not subsided. March 18, 2016 She was seen by Dr. Garcia who palpated a nodule at the 4-5 o'clock position of the right breast that was tender. March 20, 2016 Diagnostic mammography confirmed asymmetry in the area of palpable abnormality. An ultrasound on the same date showed a hypoechoic shadowing mass measuring 1.9 cm in maximal dimension that was suspicious. March 21, 2016 She underwent an ultrasound guided right core needle biopsy. Pathology returned invasive ductal carcinoma, grade 3. There was no angiolymphatic invasion and estrogen receptor, progesterone receptor, and HER-2 receptors were all negative. March 25, 2016 Screening mammogram of the left breast was negative. Bilateral breast MRI on that same date showed an enhancing mass in the lower quadrant of the right breast measuring 3.5 x 2.8 x 2.5 cm adjacent to the pectoralis muscle and there was question of some invasion. There was also a 1.4 cmarea posterior to the right nipple of non-mass like enhancement. There was no pathologic lymphadenopathy in either axilla or in the internal mammary chain. March 26, 2016 The patient was seen by Dr. Borrero March 28, 2016 She was seen in consultation in medical oncology and neoadjuvant chemotherapy withAC-T was recommended. April 05, 2016 She began neioadjuvant chemotherapy with doxorubicin and paclitaxel. 05/30/2016 started weekly paclitaxel 09/25/2016 bilateral full spare mastectomies with sentinel lymph node biopsy. Pathology returned complete pathologic response with no evidence of residual disease, ypT0 N0 M0. 12/25/2016 seen in Gynecology in [place] by Radha SANCHEZ who recommended a CA 125 and pelvic ultrasound every 6 months for surveillance for ovarian cancer. She did tell the patient she did not think this was optimal and could not guarantee that she would not develop ovarian cancer in the interim. She did discuss bilateral salpingo oophorectomy with fertility options including select blast assist implantation, but the patient refused the surgery. A CA 125 drawn at that visit was 12. 04/13/2017 CT of the head and neck for globus sensation was notable for mild prominence of the rightlaryngeal ventricle and right piriformis sinus suggestive but not diagnostic of right vocal cord paralysis. 06/18/2017 transferred and show ultrasound was notable for 3 small lesions in the left ovary and follow-up ultrasound in 6-12 weeks was recommended, although they were suspected to be corporal [place] andor hemorrhagic cysts. Since then, she has completed her reconstructive surgery, and has been seen in routine follow up in [place] until 07/2019 at which time she was apparently lost to follow up. She is here today to establish care. ONC General HPI The following portions of the patient's history were reviewed and updated as appropriate: allergies,current medications, family history, medical history, social history, surgical history and problem list. PAST MEDICAL/SURGICAL HISTORY Past medical history, other than the triple-negative breast cancer, she denies. ?? SOCIAL HISTORY Lives with her mother in [place]. 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 She is not in a position financially to undergo harvesting and cryo preservation of ova. She does not smoke. FAMILY HISTORY There is no family history of breast, ovarian, colon, endometrial, prostate, pancreatic. She does have a maternal grandfather with malignant melanoma. Her mother is also positive for BRCA1 and has recently undergone a bilateral salpingo-oophorectomy. She does have one sister who was tested, and she is negative. REVIEW OF SYSTEMS Gastrointestinal: Patient was diagnosed with SIBO (Small intestine bacterial overgrowth) and H. pylorii positive ulcer (all diagnosed by stool sample) by a pillowcase cleaner in [facility], . She has been treated for these conditions with naturopathic medication. OBJECTIVE BP 126/72 Pulse 109 Temp 36.3 ??C Resp 14 Ht 164 cm Wt 68.8 kg LMP 10/10/2020 (Exact Date) SpO2 97% No BMI 25.58 kg/m?? ECOG Scoring: Fully active, able to carry on all pre-disease performance without restriction PHYSICAL EXAM Constitutional Appearance: Normal appearance. She is normal weight. HENT Head: Normocephalic and atraumatic. Right Ear: External ear normal. Left Ear: External ear normal. Nose: Nose normal. Mouth/Throat: Comments: Mouth not examined to avoid aresolization during COVID-19 public health crisis. Eyes General: No scleral icterus. Extraocular Movements: Extraocular movements intact. Conjunctiva/sclera: Conjunctivae normal. Pupils: Pupils are equal, round, and reactive to light. Neck Musculoskeletal: Normal range of motion and neck supple. Comments: No thyromegaly jugular venous distention or masses. Cardiovascular Rate and Rhythm: Normal rate and regular rhythm. Heart sounds: No murmur. No friction rub. No gallop. Pulmonary Effort: Pulmonary effort is normal. Breath sounds: Normal breath sounds. No wheezing, rhonchi or rales. Chest Comments: The breasts were examined in the upright and supine positions. They are reconstructed with bilateral well-healed incisions, about 10 cm long bilaterally. Nipples have circumareolar scarring.There is no evidence of recurrence in either breast or on the chest wall or in the scars. Because medic result is very good. Abdominal General: Abdomen is flat. There is no distension. Palpations: Abdomen is soft. There is no mass. Comments: No visceromegaly. Musculoskeletal Normal range of motion. General: No swelling, tenderness or deformity. Skin General: Skin is warm and dry. Neurological General: No focal deficit present. Mental Status: She is alert and oriented to person, place, and time. Cranial Nerves: No cranial nerve deficit. Psychiatric Mood and Affect: Mood normal. LABORATORY DATA Lab data reviewed. RADIOLOGICAL DATA Radiology data reviewed. ASSESSMENT / PLAN #1 Malignant Neoplasm Of Breast Female Right (HCC) #2 Dyspareunia Female Organic Other orders - Thyroid Function [place]; Future; Expected date: 10/10/2020 - Follicle-Stimulating Hormone (FSH), Serum; Future; Expected date: 10/10/2020 - Luteinizing Hormone (LH), Pediatrics; Future; Expected date: 10/10/2020 - Estradiol - (for men, children, and post-menopausal women); Future; Expected date: 10/10/2020 - CT Abdomen Pelvis without and with IV Contrast; Future; Expected date: 10/10/2020 - CBC with Differential, Blood; Future; Expected date: 10/10/2020 - Comprehensive Metabolic Panel; Future; Expected date: 10/10/2020 - Cancer Antigen 125 (CA 125); Future; Expected date: 10/10/2020 - Oncology office visit (clinic); Future; Expected date: After tests Triple negative breast cancer, at least T2 N0 in a premenopausal woman who was 36 at the time of herdiagnosis with heterozygosity at the BRCA 1 locus. Her mother is also positive and is seen at [facility] for follow-up. However, mother has never been diagnosed with malignancy. She will require ongoing surveillance for her history of triple negative breast cancer. I have also sent a message to Dr. Arnold regarding consultation for advice regarding fertility and sexual dysfunction issues. I will see her again in 4-6 months with labs at that time. She will also need ongoing surveillance for ovarian cancer with CA 125 and transvaginal ultrasound every 6 months. It would also be reasonable to alternate ultrasound and pelvic MRIs. PATIENT EDUCATION Ready to learn, no apparent learning barriers were identified; learning preferences include listening. Explained diagnosis and treatment plan; patient expressed understanding of the content. ADMINISTRATIVE BILLING I personally spent 88 minutes in care of the patient today. Time includes both non face to face and face to face patient care. documented in this encounter Plan of Treatment Scheduled Orders Name Type Priority Associated Order Schedule Diagnoses Thyroid Function Lab Routine Malignant Neoplasm Expec ger: [place] Of Breast Female 10/10/2020 Right (HCC) (Approximate), Dyspareunia Female Expires: Organic 10/11/2023 Follicle-Stimulating Lab Routine Malignant Neoplasm E xpected: Hormone (FSH), Serum Of Breast Female Right (HCC) (Approximate), Dyspareunia Female Expires: Organic 10/11/2023 Luteinizing Hormone Lab Routine Malignant Neoplasm Ex pected: (LH), Pediatrics Of Breast Female 021 Right (HCC) (Approximate), Dyspareunia Female Expires: Organic 10/11/2023 Estradiol - (for men, Lab Routine Malignant Neoplasm Expected: children, and Of Breast Female 10/10/2020 post-menopausal women) Right (HC C) (Approximate), Dyspareunia Female Expires: Organic 10/11/2023 CT Abdomen Pelvis Imaging RAD - Routine (most Malignant [place] sm Expected: without and with IV inpatients and all Of Breast Femal e 10/10/2020 Contrast outpatients) Right (HCC) (Approximate), Dyspareunia Female Expires: Organic 10/11/2023 CBC with Differential, Lab Routine Malignant Neoplasm Expected: Blood Of Breast Female 10/10/2020 Right (HCC) (Approximate), Dyspareunia Female Expires: Organic 10/11/2023 Comprehensive Lab Routine Malignant Neoplasm Expected : Metabolic Panel Of Breast Female 10/11/19 21 Right (HCC) (Approximate), Dyspareunia Female Expires: Organic 10/11/2023 Cancer Antigen 125 (CA Lab Routine Malignant Neoplasm Expected: 125) Of Breast Female 10/10/2020 Right (HCC) (Approximate), Dyspareunia Female Expires: Organic 10/11/2023 Scheduled Referrals Name Type Priority Associated Order Schedule Diagnoses Oncology office Outpatient Referral Routine Malignant Neoplasm 1 Occurrences visit (clinic) Of Breast Female starting 10/10/2020 Right (HCC) until 10/11/2023 Dyspareunia Female Organic documented as of this encounter Visit Diagnoses Diagnosis Malignant Neoplasm Of Breast Female Righ t (HCC) - Primary Dyspareunia Female Organic documented in this encounter
--- OUTSIDE RECORDS SUMMARY | 2022-03-13 15:43 | XMS_ITS | Encounter Summary ---
:1980 Author Organization [facility] Address [address] [place] [address] Care Team Providers Name Role Phone Unavailable Primary Care Provider Unavailable Reason for Referral Outpatient (Routine) - Closed Specialty Diagnoses / Procedures Referred By Contact Refer red To Contact Obstetrics and Diagnoses Atrophy Vagina Due To Estrogen Deficiency Malignant Neoplasm Of Breast Female Right (HCC) Dyspareunia Due To Physiological Condition Female Sena Patricio, [facility] M.DFaheem [address] [place] [phone] Referral ID Status Reason Start Date Expiration Date Visits Requ ested Visits Authorized [id number] Closed 10/12/2020 10/12/2021 1 1 Encounter Details Date Type Department Care Team Description 10/12/2020 Orders Only Department of Oncology Sena Patricio, At rophy Vagina Due To Estrogen Deficiency (Primary Dx); in [facility] Job monzon M.D. Malignant Neoplasm Of Breast Female Righ t (HCC); [address] [facility] [address] [facility] Dyspareunia Due [place] [address] [place], [place] [phone] Social History Tobacco Use Types Packs/Day Years Used Date Smoking Tobacco: Never Smokeless Tobacco: Never Sex Assigned at Date Recorded Not on file documented as of this encounter Plan of Treatment Scheduled Referrals Name Type Priority Associated Diagnoses Order S chedule Obstetrics and Outpatient Routine Atrophy Vagina Due To Expe cted: Gynecology - Referral Estrogen Deficie ncy 10/12/2020 Reproductive Malignant Neoplasm Of (Appro ximate), endocrinology and Breast Female Right Exp ires: infertility consult ([facility]) 10/13/2023 (clinic) Dyspareunia Due To Physiological Condition Female documented as of this encounter Visit Diagnoses Diagnosis Atrophy Vagina Due To Estrogen Deficienc y - Primary Malignant Neoplasm Of Breast Female Righ t ([facility]) Dyspareunia Due To Physiological Conditi on Female documented in this encounter
--- OUTSIDE RECORDS SUMMARY | 2022-03-13 15:43 | XMS_ITS | Encounter Summary ---
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 (H) Sh Cancer Risk Mgmt [facility] [address] [place] [address] Referral ID Status Reason Start Date Expiration Date Visits Requ ested Visits Authorized [id number] Closed 07/18/2016 07/18/2017 1 1 ERY KNITTER Encounter Details Date Type Department Care Team Description 07/18/2016 Oncology Visit Cancer Risk Management [facility]ac[facility] Crespo [facility] 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 (H) (Primary Dx); [place] [id number] [place] [address] Malignant neoplasm of lower-inner quadra nt of right female breast (H) [facility] [address] [place] [address] Social History Tobacco Use Types Packs/Day Years Used Date Never Smoker Alcohol Use Standard Drinks/Week Comments Not Asked 0 (1 standard drink = 0.6 oz pure alcoho l) Sex Assigned at Date Recorded Not on file documented as of this encounter Patient Instructions Patient InstructionsSumi Valle GC - 07/18/2016 8:55 AM CST Images from the original note were not included. Assessing Cancer Risk Only about 5-10% of cancers are thought to be due to an inherited cancer susceptibility gene. These families often have: ??? Several people with the same or related types of cancer ??? Cancers diagnosed at a young age (before age 50) ??? Individuals with more than one primary cancer ??? Multiple generations of the family affected with cancer BRCA1 and BRCA2 Genes We each inherit two copies of every gene in our bodies: one from our mother, and one from our father. Each gene has a specific job to do. When a gene has a mistake or ???mutation?? in it, it does not work like it should. Everyone has two copies of BRCA1 and two copies of BRCA2. A single mutation in one of the copies of BRCA1 or BRCA2 increases the risk for breast and ovarian cancer, among others. The risk for pancreatic cancer and melanoma may also be slightly increased in some families. The tablesbelow list the chance that someone with a BRCA mutation would develop cancer in his or her lifetime1,2,3,4. Women Men General Population BRCA + General Population BRCA + Breast 12% 40-85% Breast <1% ~7% Ovarian 1-2% 10-40% Prostate 16% 20% Inheriting a mutation does not mean a person will develop cancer, but it does significantly increasehis or her risk above the general population risk. A person???s ethnic background is also important to consider, as individuals of Ashkenazi Gnosticist ancestry have a higher chance of having a BRCA gene mutation. There are three BRCA mutations that occur more frequently in this population. Genetic Testing Genetic testing involves a simple blood test and will look at the genetic information in the BRCA1 and BRCA2 genes for any harmful mutations that are associated with increased cancer risk. If possible,it is recommended that the person(s) who has had cancer be tested before other family members. That person will give us the most useful information about whether or not a specific gene is associated with the cancer in the family. Results There are three possible results of BRCA1 and BRCA2 genetic testing: ??? Positive--a harmful mutation was identified ??? Negative--no mutation was identified ??? Variant of unknown significance--a variation in one of the genes was identified, but it is unclear how this impacts cancer risk in the family Advantages and Disadvantages There are advantages and disadvantages to genetic testing of these genes. Advantages ??? May clarify your cancer risk ??? Can help you make medical decisions ??? May explain the cancers in your family ??? May give useful information to your family members (if you share your results) Disadvantages ??? Possible negative emotional impact of learning about inherited cancer risk ??? Uncertainty in interpreting a negative test result in some situations ??? Possible genetic discrimination concerns (see below) Inheritance BRCA1 and BRCA2 mutations are inherited in an autosomal dominant pattern. This means that if a parent has a mutation, each of his or her children will have a 50% chance of inheriting that same mutation. Therefore, each child--male or female--would have a 50% chance of being at increased risk for developing cancer. Image obtained from Genetics Home Reference, 2013 Genetic Information Nondiscrimination Act (MICKIE) MICKIE is a federal law that protects individuals from health insurance or employment discrimination based on a genetic test result alone. Although rare, there are currently no legal protections in termsof life insurance, detention care, or disability insurances. Visit the National Human Genome Research [place] at Genome.gov/94489096 to learn more. Reducing Cancer Risk Current screening recommendations for women with a BRCA mutation include5: ??? Breast: o Breast self-exams starting at age 18; monthly o Clinical breast exams starting at age 25; repeated every 6-12 months o Annual breast MRI starting at age 25 (or possibly younger) o Annual mammogram and breast MRI at age 30 (for women with and without a breast cancer history) o Consideration of preventative mastectomy ??? Ovarian: o Consideration of transvaginal ultrasound and CA-125 blood test starting at age 30 (or possibly younger); repeated every 6 months o Recommendation for surgery to remove the ovaries and fallopian tubes after child bearing or by [id number] Current screening recommendations for men with a BRCA mutation include5: ??? Breast: o Self-breast exams starting at age 35 o Annual clinical breast exams starting at age 35 ??? Prostate: o Recommend prostate cancer screening starting at age 40 for BRCA2 carriers o Consider prostate cancer screening starting at age 40 for BRCA1 carriers Both men and women with BRCA mutations should talk to their doctor or genetic counselor about screening for pancreatic cancer and melanoma. In addition, the age at which to start screening may be modified based on family history of young cancer. Questions to Think About Regarding Genetic Testing ??? What effect will the test result have on me and my relationship with my family members if I havean inherited gene mutation? If I don???t have a gene mutation? Should I share my test results, and how will my family react to this news, which may also affectthem? Are my children ready to learn new information that may one day affect their own health? Resources FORCE: Facing Our Risk of Cancer Empowered TOOVIA.SinDelantal.Viamericas [place] Cancer Society (ACS) cancer.org National Cancer [place] (NCI) cancer.gov Please call us if you have any questions or concerns. Cancer Risk Management Program [phone] ( ? Araceli Cherie, MS, [facility] [phone] ? Sena Shanice, MS [facility] [phone] ? Verona Barajas, MS, [facility] [phone] ? Sumi Valle, MS, [facility] [phone] Resources for Hereditary Breast and Ovarian Cancer Syndrome BRCA Information Support Group People with BRCA1 or BRAC2 mutations face complex emotional challenges and complicated medical decisions due to high cancer risks and their impact on individuals and families. This group brings people with a BRAC1 or BRAC2 genetic diagnosis together with others facing similar challenges. The group meets nine times per year. For information, please contact [email or web address] or call . [employer] Ma www.MEEP.org [employer] is the only national non-profit organization focused on prevention and early detection of breast and ovarian cancer in young women. Our aim is to reach the 52 million young women in the [place] between the ages of 18 and 45 with our innovative, life-saving breast and ovarian health programs, thereby empowering this and futuregenerations of women to live healthier, happier, and longer lives. FORCE: Facing Our Risk of Cancer Empowered www.TOOVIA.org ??? Helpline: ??? Chat line ??? Message boards ??? Local support group Talking About BRCA in Your Family Tree http://www.facingourrisk.org/sfaxjrwawrwvb-cxvy-plm-hboc/publications/documents/ jlmeevp-zlxytma-khfkf-brca-family.pdf [employer] www.fireflysisterhood.org Based in the [facility], the [facility] connects women diagnosed with breast cancer with trained breast cancer survivors to offer support, guidance and hope. Books: The Breast Reconstruction Guidebook: Issues and Answers from Research to Recovery, Lianet Stewart Confronting Hereditary Breast and Ovarian Cancer: Identify Your Risk, Understand Your Options, Change Your Winsome, Chitra Jackson ERY KNITTER documented in this encounter Progress Notes Sumi Valle GC - 07/18/2016 2:32 PM CST 07/18/2016 Referring Provider: Spencer Blunt MD Presenting Information: I met with Clarice Arrington today for genetic counseling at the Cancer Risk Management Program at the [facility] to discuss her genetic testing results. Clarice previously pursued BRCA1 and BRCA2 testing through [employer]. This testing was ordered by Dr. Niranjan Borrero. Clarice is positive for a BRCA1 mutation called c.53T>A. This testing was done because of Clarice's personal history of breast cancer. Personal History: Clarice is a 36 year old female. 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 Clarice has her ovaries, fallopian tubes and uterus in place. She recently had a transvaginal ultrasound performed at [facility] which revealed a 9mm lesion on her left ovary (05/22/2016). Per Dr. Blunt's note, a follow up ultrasound was recommended after completion of chemotherapy. She does not regularly do any other cancer screening at this time. Clarice does not have a history of tobacco use, and reports no concerns regarding alcohol or environmental exposures. Family History: (Please see scanned pedigree for detailed family history information) ?? Clarice's mother reportedly tested positive for a BRCA1 gene mutation, and has no history of cancer. A copy of her genetic testing report was not available today for review. She is currently being followed by the [facility]. ?? Clarice's older sister reportedly tested negative for the familial BRCA1 gene mutation. ?? Clarice's maternal grandfather had a history of melanoma in his 50's and in his early 60's. ?? Her family history is otherwise not significant for any cancers ?? Her maternal ethnicity is [place] and [place]. Her paternal ethnicity is [place]. There is no Ashkenazi Gnosticist ancestry on either side of her family. Genetic Testing Results: POSITIVE Clarice is POSITIVE for a BRCA1 mutation. Specifically her mutation is called c.53T>A. We discussedthis mutation is consistent with a diagnosis of hereditary breast and ovarian cancer (HBOC) syndrome, and is associated with an increased risk for breast and ovarian cancer. We discussed the impact of this testing on Clarice in detail. Clarice tested negative for mutations in the BRCA2 gene by sequencing and deletion/duplication analysis. BRCA1/2 sequencing was performed through buccal wash sample, and large rearrangement analysis was performed through a blood sample. Of note, Clarice expressed concern regarding the accuracy of genetic testing from a buccal wash/salivasample. We discussed that saliva is an appropriate sample type for genetic testing and should not impact the accuracy of her positive result. I would be happy to coordinate re-analysis using a blood sample per her request, however it is not clear if insurance would cover this additional testing. BRCA1 Cancer Risks: Women with mutations in BRCA1: ??? Have a 50-85% lifetime risk of developing breast cancer. ??? Lifetime ovarian cancer risk is also increased up to 40%. ??? This is much greater than the general population breast and ovarian cancer risks of 12% and 1-2%, respectively. Men with mutations in BRCA1: ?? Have a 20% lifetime prostate cancer risk. This is greater than the general population risk of approximately 16%. ?? Male breast cancer risk is increased to 5-10%, This is greater than the general population risk of less than 1%. Lifetime pancreatic cancer risk and melanoma risk in both males and females may be increased as well. Cancer Screening and Prevention: The following screening is recommended for women who have a mutation in the BRCA1 gene. ?? Breast self-exam starting at age 18; monthly ?? Clinical breast exams starting at age 25; repeated every 6-12 months ?? Annual breast MRI from age 25-29 ?? Annual mammograms and breast MRI alternating every 6 months starting at age 30 ?? Consider transvaginal ultrasound and a CA125 blood test starting at age 30; repeated every 6 months We discussed that prophylactic mastectomy is a surgical option, which reduces breast cancer risk by 90%. Chemoprevention with Tamoxifen can reduce breast cancer risk in some women. Surgical risk reduction options and Tamoxifen use should be discussed with Clarice's physician. Of note, Clarice is planning to pursue bilateral mastectomy for her cancer treatment. We have discussed the limitations of screening for ovarian cancer. Thus, prophylactic removal of theovaries and fallopian tubes is an option and is recommended after women are finished planning their families or between 35 and 40. As with any surgery, risks are involved, and this option should be discussed in greater detail with a horseshoer-oncologist. Using oral contraceptives for five years or more has been shown to reduce ovarian cancer risk by around 50%. The data are still inconclusive as to whether or not using oral contraceptives will increasebreast cancer risk in BRCA mutation carriers. We discussed that Clarice could participate in our Cancer Risk Management Program in which our nursingspecialist provides an individual screening plan and assists with medical management. A referral will be made to meet with PILLO Carty to discuss screening and management for hereditary breast and ovarian cancer syndrome. Implications for Family Members: We reviewed that mutations in BRCA1 are inherited in an autosomal dominant pattern. This means that,if Clarice has children, each would have a 50% chance of inheriting the same mutation. Likewise, each of her mother's siblings also has a 50% risk of having the same mutation. I am happy to help her relatives connect with a genetic counselor in their area if they would like to discuss testing. Support Resources: I provided Clarice with national and local support resources. These can be found in the after visit summary. Summary: 1. 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 We discussed the impact of this testing on Clarice in detail. 2. I will provide a Dear Relative letter for Clarice to share with her family members. 3. She plans to follow up with Estephania Thorne as part of our Cancer Risk Management Program, as well as her care team for her current treatment. If Clarice has additional questions, I encouraged her to contact me directly at [phone]. Time spent face to face: 45 minutes. Sumi Valle MS, [facility] Certified Genetic Counselor [phone] ERY KNITTER documented in this encounter Plan of Treatment Scheduled Referrals Name Type Priority Associated Diagnoses Order S chedule CANCER RISK MGMT/CANCER Referral Routine Hereditary breast and Ordered: 07/18/2016 GENETIC COUNSELING ovarian cancer syndrom e REFERRAL associated with mutation in BRCA1 gene (H) Malignant neoplasm of lower-inner quadrant of right female breast (H) documented as of this encounter Visit Diagnoses Diagnosis Hereditary breast and ovarian cancer syn drome associated with mutation in BRCA1 gene - Primary Malignant neoplasm of lower-inner quadra nt of right female breast (H) Malignant neoplasm of lower-inner quadra nt of female breast documented in this encounter Care Teams Deputy Fire Chief Relationship Specialty Start Date End Date Niranjan Borrero MD PCP - General Surgery 06/18/16 09/24/16 documented as of this encounter
--- OUTSIDE RECORDS SUMMARY | 2022-03-13 15:43 | XMS_ITS | Encounter Summary ---
:1980 Author Organization [facility] Address [address] [place] [address] Care Team Providers Name Role Phone Pepper Palencia MD Primary Care Provider [phone] Reason for Visit Auth/Cert Specialty Diagnoses / Procedures Referred By Contact Refer red To Contact Surgery Diagnoses Trismus, Condylar Hyperplasia Uu Periop Procedures [facility] INTRAOR[facility] [address] [place] [address] Phone: Fax: Referral ID Status Reason Start Date Expiration Date Visits Requ ested Visits Authorized [id number] 1 1 Encounter Details Date Type Department Care Team Description 03/25/2018 [facility] Elder Riley Bilater al Encounter [facility] Same Day DDS temporomandibular joint Surgery [place] [phone] Carlos pain (Primary Dx) [address] [place], [place] [address] [place] [address] [facility] [phone] [place] [address] Social History Tobacco Use Types Packs/Day Years [...] Ashby RN - 03/25/2018 11:27 AM CDT [facility], [facility] Same-Day Surgery Adult Discharge Orders & Instructions [...] doctor, call Dr. Riley (Oral Surgery) @ [phone] or: ??? [phone] and ask for the resident distribution operation supervisor for Oral-Maxillofacial (answered 24 hours a day) ??? Emergency Department: [facility]: [phone] (TTY for hearing impaired: [phone]) documented in this encounter Medications at Time [...] in chart. Spencer Jordan DDS PGY-2 Pager: [phone] documented in this encounter Nursing Notes See Rothman, RN - 03/25/2018 2:15 PM CDT Detaied discharge [...] DDS, FACS RESIDENT SURGEON: Oc Taveras DDS ONCOLOGY TRANSPLANT NETWORK MANAGER: Antonio Contreras DDS PREOPERATIVE DIAGNOSES: Mandibular Hypomobility POSTOPERATIVE DIAGNOSES: Same PROCEDURES PERFORMED: Bilateral Coronoidectomy Bilateral Pterygomasseteric Sling Release [place] Procedure INDICATIONS: Clarice Arrington is a 38-year-old woman who has been followed by the Oral Maxillofacial Surgery Service for mandibular hypomobility, originally referred by Dr. Gibson. She has completed physical therapy at [facility] in [place], [place] without improvement in maximum interincisal opening. [...] in the pre-operative holding unit at the [facility].A head wrap was placed by the Oral [...] to auscultation. Tube was secured by the [facility] service. The facial prep was then performed [...] time out was then performed following the [facility] protocol in order to ensure proper patient [...] Contreras MD - 03/25/2018 10:50 AM CDT [facility] Brief Operative Note Pre-operative diagnosis: Trismus, Condylar [...] Signature Creatinine 0.87 0.52 - 1.04 03/25/2018 [facility] mg/dL 7:57 AM CDT [facility] GFR Estimate 73 >60 03/25/2018 [facility] mL/min/1.7m 7:57 AM CDT [address] Comment: Non GFR Calc GFR Estimate If 89 >60 mL/min/1.7m2 03/25/2018 7:57 A M [facility] Comment: GFR Calc Specimen Anatomical Collection Method Collection Time Receive d Time (Source) Location / / Volume Laterality Blood specimen 03/25/2018 7:20 AM 018 7:34 (specimen) CDT AM CDT Cristy Saldana MD LAB - BLOOD ORDERABLES Performing Organization Address City/State/ZIP Code Phon e Number [address] Potassium (03/25/2018 7:20 AM CDT) athologist Signature Potassium 3.5 3.4 - 5.3 03/25/2018 [facility] mmol/L 7:57 AM CDT [facility] Specimen Anatomical Collection Method Collection Time Receive d Time (Source) Location / / Volume Laterality Blood specimen 03/25/2018 7:20 AM 018 7:34 (specimen) CDT AM CDT Cristy Saldana MD LAB - BLOOD ORDERABLES Performing Organization Address City/State/ZIP Code Phon e Number [address] Hemoglobin (03/25/2018 7:20 AM CDT) athologist Signature Hemoglobin 12.5 11.7 - 15.7 03/25/2018 [facility] g/dL 7:37 AM CDT [facility] Specimen Anatomical Collection Method Collection Time Receive d Time (Source) Location / / Volume Laterality Blood specimen 03/25/2018 7:20 AM 018 7:34 (specimen) CDT AM CDT Cristy Saldana MD LAB - BLOOD ORDERABLES Performing Organization Address City/[facility]/ZIP Code Phon e Number [address] HCG qualitative urine (03/25/2018 6:50 AM CDT) Analysis Performed At Patho logist Time Signature HCG Qual Urine Negative NEG^Negati 03/25/2018 [facility] 7:22 AM CDT [facility] Comment: This test is for screening purposes. ??R esults should be interpreted along with the clinical picture. ??Confirmation te sting is available if warranted by ordering [id number], HCG Quantitative Pregna ncy. Specimen Anatomical Collection Method Collection Time Receive d Time (Source) Location / / Volume Laterality Urine specimen URINE SPECIMEN 03/25/2018 6:50 AM 03/25 7:14 (specimen) OBTAINED BY CLEAN CDT AM CDT CATCH PROCEDURE / Unknown Cristy Saldana MD LAB - URINE ORDERABLES Performing Organization Address City/[facility]/ZIP Code Phon e Number [address] Glucose by meter (03/25/2018 6:23 AM [...] TESTING documented in this encounter Visit Diagnoses Diagnosis Bilateral temporomandibular joint pain - Primary Arthralgia of temporomandibular joint documented in this encounter Administered Medications Inactive Administered Medications - up to 3 most recent administrations Medication Order MAR Action Action Date Dose Rate Site chlorhexidine (PERIDEX) 0.12 % Given 03/25/2018 7:38 AM CDT 10 m Ls solution 10 mL 10 mL, Swish & Spit, ONCE, On Fri03/25/18 at 0645, For 1 dose, Swish for 1 minute pre-op. weight caller to surgery, Pre-procedure fentaNYL (PF) (SUBLIMAZE) injection 25-50 Given 03/25/2018 [...] 5mg over 1 minute., PACU/ Phase II documented in this encounter Active and Recently Administered Medications Times are shown in CDT. Scheduled Medication Order 03/23/2018 03/24/2018 03/25/2018 chlorhexidine (PERIDEX) 0.12 % solution 10 mL (COMPLETED) 0738 (Given - Provider: Lupe Swanson RN) 10 mL, Swish & Spit, ONCE, Fri03/25/18 a t 0645, For 1 dose, Swish for 1 minute pre-op. weight caller to surgery, Pre-procedure clindamycin (CLEOCIN) infusion 900 mg (COMPLETED) 0820 (Given - Provider: Brayan Esparza APRN EXCHANGE UNDERWRITING CONSULTANT) 900 mg, Intravenous, PRE-OP/PRE-PROCEDUR E, Starting Fri03/25/18 [...] mcg (CANCELED) 1104 (Given - Provider: Carlos Ashby, NORA)1138 (Given - Provider: Carlos Ashby RN) 25-50 mcg, Intravenous, EVERY 2 MIN PRN, Starting Fri03/25/18 at 1103, other, acute pain while in PACU., MAX cumulative dose = 250 mcg. Use fentaNYL (SUBLIMAZE) initially, as a short acting agent for [place] pain control. If insufficient, or a longer acting agent is needed, begin morphine or HYDROmorphone (DILAUDID) if ordered. For ordered doses up to 100 mcg give IV Push undiluted over a minimum of 3-5 minutes., PACU HYDROmorphone (PF) (DILAUDID) injection 0.3-0.5 mg 1121 (Given - Provider: Carlos Ashby, RN)1152 (Given - Provider: Carlos Ashby, RN)1211 (Given - Provider: Carlos Ashby RN) 0.3-0.5 mg, Intravenous, EVERY 10 MIN AR N, Starting Fri03/25/18 at 1104, Until Fri03/25/18 [...] Minutes, Starting Fri03/25/18 at 1104, For 2 doses
[...] II documented in this encounter Care Teams Java Websphere Developer Relationship Specialty Start Date End Date Pepper Palencia MD PCP - General Family Practice 03/06/[address] [address] documented as of this encounter
--- OUTSIDE RECORDS SUMMARY | 2022-03-13 15:43 | XMS_ITS | Encounter Summary ---
:[address] [facility] Address [address] [place] [address] Care Team Providers Name Role Phone Unavailable Primary Care Provider Unavailable Encounter Details Date Type Department Care Team Description 11/06/2016 - Hospital Encounter HX [facility] JOSE PT Lore Traore , 11/20/2016 [place] [address] Fani Chavez, [address] [id number] (Wo rk) Social History Tobacco Use Types Packs/Day Years Used Date Smoking Tobacco: Never Assessed Sex Assigned at Date Recorded Not on file documented as of this encounter Medications at Time of Discharge Medication Sig Dispensed Refills Start Date End Date albuterol 90 mcg/actuation Inhale 2 puffs every 0 11/18/2014 inhaler 6 (six) hours as needed. documented as of this encounter Progress Notes Annita Honeycutt P.T. - 11/20/2016 12:00 AM CDT [id number] SUBJECTIVE The patient notes continued improvement of overall active range of motion in bilateral upper extremities. Following manual therapy techniques last session she did feel improvement of looseness and painin the left anterior shoulder region. 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 Patient also willhave her new insurance starting November 25 and so this will be her last session under this insurance provider. Discussed with patient the need to start a new chart with her new insurance. She will need a new order for physical therapy if she decides to return to additional physical therapy visits. OBJECTIVE Therapeutic exercise: Patient warms up on bike level 3, 6 minutes, seated row 1.5 plates 2 sets of 15, rear deltoid half plate 10 reps, resisted triceps 2.5 plates 20 reps, resisted biceps 1.5 plates 20 reps, cane press 10 reps, cane flexion 10 reps, initiated active range of motion without cane 10 reps each, also performed bilaterally, prone row extension, horizontal abduction 1 pound 15 reps of each, counter wipes into forward clockwise and counter-clockwise 15 reps of each, wall wipes into flexion clockwise and counter-clockwise 20 reps of each, internal/external rotation yellow Thera-Band 15 reps of each, standing active range of motion into flexion and scaption 10 reps of each performed bilaterally. In supine, passive range of motion performed into flexion, scaption, abduction internal and external rotation. Manual therapy techniques: In supine myofascial soft mobilization performed to left upper trapezius and levator scapula as well as into left supraspinous. Performed grade 2/grade 3 inferior/posterior mobilizations in varying degrees of flexion and abduction performed bilaterally. Also performed scapular mobilizations with varying degrees of passive range of motion. ASSESSMENT The patient progresses with all active range of motion into all planes. The patient passive range ofmotion is near full bilaterally into flexion, external rotation and abduction. The patient now scores a 29% on the DASH index which is an improvement from 50% on initial evaluation. The patient does continue to have difficulty with putting on and taking off her coat, however does note improvement in overhead activities. The patient has partially met physical therapy goals. PLAN Patient to be discharged from physical therapy at this time as she will receive new insurance over the weekend. The patient will call to schedule additional visits under new insurance if deemed necessary. TREATMENT TIME: Therapeutic exercise 32 minutes, manual therapy techniques 12 minutes. Annita Honeycutt P.T., D.P.T./pos Electronically Signed By: ANNITA HONEYCUTT PT On: 11/22/2016 07:48 AM Modified by and Electronically Signed by: ANNITA HONEYCUTT PT On: 11/22/2016 07:48 AM Source: [facility] MHSDOLBEYNONRADSYS Document Id: [id number] Annita Honeycutt P.T. - 11/15/2016 12:00 AM CDT [id number] DATE: 11/15/2016 SUBJECTIVE: The patient feels that the right arm continues to improve with active range of motion into forward flexion. However the left shoulder continues to have referral pain into the left mid humerus region and along the lateral aspect. The patient notes difficulty with putting on and taking off her sweatshirt due to the left arm pain. The patient feels that the left arm pain continues to remain unchanged. OBJECTIVE: Therapeutic exercise: Patient warms up on UBE level to 6 minutes, seated row 1.5 plates 2 sets of 15, resisted biceps and triceps, 2 plates 20 reps of each, performed prone row extension and horizontalabduction 1 pound 15 reps of each, counter wipes into clockwise and counterclockwise, and flexion bilaterally 15 reps each, wall wipes also initiated into flexion clockwise and counter- clockwise 20 reps each performed bilaterally. Performed internal and external rotation yellow therapy band 15 reps ofeach. Performed passive range of motion bilaterally into flexion, abduction, internal, and external rotation. Manual therapy techniques: Performed scapular mobilization with varying degrees of flexion and abduction as well as grade 3/grade 4 inferior mobilization with varying degrees of flexion and abduction bilaterally. In right side-lying, performed myofascial release, soft tissue mobilization to left uppertrapezius and levator scapula. ASSESSMENT: The patient progressing well with passive range of motion bilaterally. She does have hypertonicity throughout the left upper trapezius, levator scapula, and notes improvement of left shoulder pain at end of session. Patient progressing well with overall strength and mobility of bilateral upper extremities however continues to benefit from strengthening and stretching. PLAN: Continue to see for scapular stabilization, range of motion progression, and strengthening andstabilization. Performing manual therapy techniques, again as needed for left shoulder pain. TREATMENT TIME: Therapeutic exercise 26 minutes. Manual therapy techniques 17 minutes. Annita Honeycutt P.T., D.P.TFaheem/pos Electronically Signed By: ANNITA HONEYCUTT PT On: 11/18/2016 12:37 PM Source: [facility] Document Id: [id number] Annita Honeycutt P.T. - 11/11/2016 12:00 AM CDT [id number] PHYSICAL THERAPY PROGRESS NOTE: SUBJECTIVE: Patient notes improvement of overall mobility of bilateral shoulders, with improvement of reaching overhead and washing her head. The patient notes she has continual nagging pain in the left-sided anterior upper arm, stating it feels like an over-stretched rubber-band. OBJECTIVE: Therapeutic exercise: Patient warms up on UBE at level 1.5 for 6 minutes, seated row 1 plate 2 sets of 10, resisted biceps 1.5 plates 20 reps, resisted triceps 1.5 plates 20 reps, cane press and flexion 15 reps of each, prone row and extension 1 pound 15 reps of each, counter wipes into flexion clockwise and counter-clockwise performed bilaterally 20 reps of each, internal and external rotation performed bilaterally, yellow therapy band, 15 reps of each exercise for each arm. Passive range of motionperformed to end range flexion, abduction, internal and external rotation per patient tolerance withinferior glenohumeral mobilizations at varying degrees of flexion and abduction. This is performed bi laterally, as well as scapular mobilizations with varying degrees of flexion and abduction. ASSESSMENT: Patient improving vastly with passive range of motion values near full flexion bilaterally, with pain in her shoulder at end range. Educated patient with use of shoulder model at shoulder impingement occurring on the left shoulder. PLAN: Check left upper trapezius and supraspinatus for impingement symptoms. Continue progressing overall active range of motion and strengthening. TREATMENT TIME: Therapeutic exercise 44 minutes. Annita Honeycutt P.T., D.P.T./pos Electronically Signed By: ANNITA HONEYCUTT PT On: 11/12/2016 01:52 PM Source: [facility] MHSDOLBEYNONRADSYS Document Id: [id number] Annita Honeycutt P.T. - 11/08/2016 12:00 AM CDT [id number] DATE OF SERVICE: 11/08/2016. SUBJECTIVE: The patient states that following initial visit she did have soreness of bilateral shoulders the next morning due to increasing activity with upper extremities the initial evaluation. The patient has taken care to attempt to increase her active motion of bilateral shoulders, and feels she does have easier time with lifting right more than left. The patient complains of left- sided anteriorshoulder pain along the left bicipital groove. The patient was unable to complete home exercise program since initial visit due to patient having minimal time yesterday. OBJECTIVE: Therapeutic exercise: Patient warms up on UBE self pace 4 minutes with alternating directions each minute, seated row 1 plate 2 sets of 10, resisted biceps 1.5 plates 10 reps, resisted triceps 1.5 plates 10 reps, performed cane press and flexion 10 reps of each, performed prone row and extension 15 reps of each performed bilaterally, performed counter wipes into flexion clockwise and counter-clockwise 20 reps of each. In supine performed passive range of motion into flexion, abduction, internal and external rotation per patient tolerance. Performed grade 2 inferior mobilizations with varying degrees of flexion and abduction bilaterally. Also performed scapular mobilization with patient in a shoulder flexion range of motion. Performed scar tissue mobilization of right surgical incision site and educated patient to continue to perform at home. ASSESSMENT: The patient with improvement of tolerance for passive range of motion values today. The patient able to reach approximately 75% of right passive range of motion values approximately up to 150 degrees shoulder flexion. The left had decreased mobility compared to right due to bicipital groove pain with passive motion. PLAN: Continue with range of motion progression as able both passively and active assistively. TREATMENT TIME: Therapeutic exercise 42 minutes. Anntia Honeycutt P.T., Ariane.P.TFaheem/pos Electronically Signed By: ANNITA HONEYCUTT PT On: 11/11/2016 01:07 PM [facility] Document Id: [id number] Annita Honeycutt P.T. - 11/06/2016 12:00 AM CDT [id number] Provider signed original document in paper and it is scanned into the EMR. Please refer to that document for the chart original. Annita Honeycutt P.T., Jo-Ann/mehran Electronically Signed By: ANNITA HONEYCUTT PT On: 11/07/2016 12:52 PM Co-Signed By: ANNITA HONEYCUTT PT On: 01/02/2017 09:02 AM Source: [facility] Document Id: [id number] documented in this encounter Miscellaneous Notes Miscellaneous - Conversion, Historical Provider Ser - 11/11/2016 1:20 PM CDT Coding Summary-Paper Based CODING DATE: 11/11/2016 FINAL [facility] STATUS: * Discharged to Home or Self Care PAYOR: Medicaid ADMIT DX: REASON FOR VISIT DX: FINAL DX: PRINCIPAL: Z47.89 Encounter for other orthopedic aftercare SECONDARY: Z98.890 Other specified postprocedural states PROCEDURES DOCTOR NAME DATE NOTE: The code number assigned matches the documented diagnosis and / or procedure in the patient's chart. However, the narrative phrase printed from the coding software may appear abbreviated, or result in slightly different terminology. Coded By: EMMA NEWSOME Date Saved: 11/11/2016 01:20 pm Source: [facility] TxCell Document Id: [id number] documented in this encounter Plan of Treatment Not on filedocumented as of this encounter Visit Diagnoses Not on filedocumented in this encounter
--- OUTSIDE RECORDS SUMMARY | 2022-03-13 15:43 | XMS_ITS | Encounter Summary ---
:1980 Author Organization [facility] Address [address] [place] [id number] Care Team Providers Name Role Phone Richard Montalvo Primary Care Provider Reason for Visit Auth/Cert Specialty Diagnoses / Procedures Referred By Contact Refer red To Contact Surgery Diagnoses RIGHT BREAST CANCER Sh Periop Services Procedures MASTECTOMY, NIPPLE SPARING BIOPSY NODE SENTINEL DISSECT LYMPH NODE AXILLA INSERT TISSUE FILLING HAULER BREAST BILATERAL [address], [address] [place] [address] Phone: Referral ID Status Reason Start Date Expiration Date Visits Requ ested Visits Authorized [id number] 1 1 Encounter Details Date Type Department Care Team Description 09/25/2016 Surgery [facility] Padmini Blunt NIPPLE [place] [facility] MD See SPARING MASTECTOMY, Services [address] RIGHT BREAST SENTINEL [address], [address] NODE BIOPSY, [address] [place] [address] REMOVAL (GALLE), [place] [address] BILATERAL TISSUE [phone] EXPANDERS (LEÓN) Surgery Details Date/Time Status Location OR Service Patient Case Class Case Tr auma Class Type Case? 09/25/16 12:20 Posted OR OR M General Same Day Outpatient in PM 40 Surgery Bed Panel 1 Procedure LRB Anes Op Region Wound Class Commen ts BILATERAL NIPPLE Bilateral General Breast I-Clean BILATERA L NIPPLE SPARING MASTECTOMY, SPARI NG MASTECTOMY, RIGHT BREAST SENTINEL RIG HT BREAST SENTINEL NODE BIOPSY, PORT NODE BI OPSY, PORT REMOVAL (NAVDEEP), REMOVAL (NAVDEEP), BILATERAL TISSUE BILATERA L TISSUE EXPANDERS (LEÓN) EXPANDE RS (LEÓN) BIOPSY, LYMPH NODE, Right General Axilla I-Clean SENTINEL REMOVAL, VASCULAR Left General Chest I-Clean ACCESS PORT Panel 2 Procedure LRB Anes Op Region Wound Class Commen ts INSERTION, TISSUE FILLING HAULER, BREAST, Bilateral General Breast I-Clean BILATERAL Surgeon Surgeon Role Service Panel Padmini Blunt MD Primary General 1 León, Lore Reagan MD Primary Plastics & Reconstruc tion 2 Kathy Carias PA-C Assisting Family Resource Coordinator Authoriz ation 1 Special Needs Left port-a-cath documented in this encounter Social History Tobacco [...] Sign Reading Time Taken Comments Blood Pressure 128/89 09/25/2016 5:30 PM HONEY BLENDER Pulse 87 09/25/2016 10:37 AM HONEY BLENDER Temperature 36.9 ??C (98.5 ??F) 09/25/2016 4:07 PM HONEY BLENDER Respiratory Rate 13 09/25/2016 5:30 PM HONEY BLENDER Oxygen Saturation 95% 09/25/2016 5:30 PM HONEY BLENDER Inhaled Oxygen Concentration - - Weight 68.3 kg (150 lb 9.2 oz) 09/25/2016 10:37 AM HONEY BLENDER Height 165.1 cm (5' 5) 09/25/2016 10:46 AM HONEY BLENDER Body Mass Index 25.06 09/25/2016 10:37 AM HONEY BLENDER documented in this encounter Discharge Instructions Discharge InstructionsKeren Agustin RN - 09/25/2016 3:36 PM CST Discharge Instructions following a Mastectomy [facility] 33 For pain or discomfort: ??? Take pain medication prescribed by doctor. Try to take it 30 minutes before activities. This mayhelp prevent increased pain that results from movements. If you have a drain: ??? If your doctor placed a drain, record drainage output and bring record to follow-up appointment. ??? Cover the drain???s bandage before you shower. Try to keep the drain site dry. If it gets wet, change the bandage. Incision Care ??? You may take a shower. Do not scrub incisions. Pat incisions dry. No lotion or powder to incision. No tub baths (submerging incision) until incision is healed. ??? Keep your bandage dry. If you have fluid draining from your incision, you will need to replace the bandage. You don???t need a dressing if incision is clean and dry. ??? You may have thin pieces of white tape (called Steri-Strips) on your incision. If they get wet, simply pat them dry. Do not pull them off; they will fall off on their own in 7-10 days. Activities: ??? You may feel like resting more after surgery. Slowly start to do more each day. Balance activitywith rest to avoid getting too tired. ??? No heavy lifting or strenuous activity until okay with surgeon. ??? It is important to get out of bed and walk. This helps prevents blood clots. ??? While you have your drain, be sure to use your arms and shoulders for normal daily activity. ??? No driving until you feel it???s safe to do so. Do not drive while taking narcotic pain medicine. If you had an axillary node dissection: ??? Don???t reach over your head or carry more than two pounds on that side. Your surgeon will tell you when it is safe to reach and carry again. ??? To decrease swelling, keep your arms raised several times a day (use pillows). Do not sleep on that arm. ??? In the future, you should not have an IV on that side (small needle in the vein to receive medicine or other liquids). It is okay to have shots, blood tests, and blood pressure tests on that side. If you had a sentinel node biopsy: ??? You may slowly go back to heavy activity (jogging, tennis, racquetball, etc.) over the next 2-4 weeks. When to call the doctor: ??? Fever greater than 101 oF (taken under the tongue) or a fever lasting more than a day. ??? Foul smelling yellow/green drainage from your incision. ??? Increased swelling, drainage, or redness to incision. ??? Pain, tenderness, or ???hot spots?? in the breast that lasts more than two days. ??? A large amount of swelling (edema) in the arm. ??? Severe pain that does not improve with pain medicine. ??? With any questions or concerns. Follow up with surgeon as instructed. Y BLENDER documented in this encounter Medications at Time of Discharge Medication Sig Dispensed Refills Start Date End Date clindamycin (CLEOCIN) 300 MG Take 1 capsule 21 capsule 0 08/201610/03/2016 capsuleIndications: (300 mg) by Perioperative mouth 3 times Pharmacoprophylaxis daily for 7 days methocarbamol (ROBAXIN) 750 Take 1 tablet 80 tablet 0 09/2605/07/2017 MG tabletIndications: (750 mg) by Malignant neoplasm of mouth every 6 lower-inner quadrant of hours as needed right female breast (H) for muscle spasms oxyCODONE (ROXICODONE) 5 MG Take 1-2 tablets 50 tablet 0 05/07/2017 IR tabletIndications: (5-10 mg) by Malignant neoplasm of mouth every 3 lower-inner quadrant of hours as needed right female breast (H) for moderate to severe pain documented as of this encounter Progress Notes Padmini Blunt MD - 09/26/2016 5:11 PM CST I have already discussed the results with the patient. Y BLENDER Padmini Blunt MD - 09/26/2016 3:48 PM CST Surgery Pt looks good Flaps look healthy Questions answered. Home today, will danny with pathology Emmanuel Blunt MD General Surgery, Office [phone] Y BLENDER Lore Traore MD - 09/26/2016 12:35 PM CST Plastic Surgery Patient up walking and reports feeling pretty well. Robaxin working better than oxycodone for pain. PE: deferred A/P: May d/c later today. Scripts done. Lore Traore MD Plastic Surgery [facility] [phone] (office) Y BLENDER Tere Garnett - 09/25/2016 10:08 AM CST Admission medication history interview status for the 09/25/2016 admission is complete. See [facility] admission navigator for prior to admission medications Medication history source reliability:Good Medication history interview source(s):Patient Medication history resources (including written lists, pill bottles, clinic record):None Primary pharmacy.[facility] Additional medication history information not noted on [employer]REL [employer] OPERATOR INSIDE med list :None Time spent in this activity: 30 minutes Prior to Admission medications Not on File Y BLENDER documented in this encounter Nursing Notes Angela Mosley RN - 09/25/2016 4:40 PM CST Bedside report received from Nora Alvarado. Continued care assumed. Y BLENDER documented in this encounter Miscellaneous Notes Plan of Care - Audelia Haque RN - 09/26/2016 3:44 PM CST Problem: Goal Outcome Summary Goal: Goal Outcome Summary Outcome: Improving VSS. Up independently. Diet advanced to regular, tolerated. Pain managed with oral Tylenol, Oxycodone and Robaxin. Bilateral BJORN drains. Surgical dressing CDI. Y BLENDER Op Note - Lore Traore MD - 09/26/2016 1:24 PM CST PREOPERATIVE DIAGNOSES: 1. Right breast cancer. 2. BRCA1. 3. 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 POSTOPERATIVE DIAGNOSES: 1. Right breast cancer. 2. BRCA1. 3. 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 PROCEDURES: 1. Placement of bilateral breast tissue expanders. 2. Use of Contour ADM on left side. SURGEON: Lore Traore MD TISSUE FILLING HAULER INFORMATION: 1. Allergan, right, Reference #133MX-13, Serial #[id number], 500 cc, filled with 50 cc of saline. 2. Allergan, left, Reference #133MX-13, Serial #[id number], 500 cc, filled with 50 cc of saline. DESCRIPTION OF PROCEDURE: The patient was marked for incisions and taken to the operating room on 09/25/[address] Schaeffer. He completed his portion of the surgery. Tissue expanders were then placed. On the right side an incision was made within the pectoralis muscle, and a subpectoral pocket was developed. Dissection was carried down to the level of the inframammary fold, and attachments of the pectoralis muscle to the inframammary fold were divided. Laterally leyla thin and attenuated serratus fascia was able to be elevated. The pocket was irrigated with Betadine solution. A tissue creasing machine operator was made ready for insertion and placed in the pocket. The pectoralis muscle was reapproximated with interrupted 3-0 Monocryl suture. A 15 Cuban John-Lisa drain was placed. The skin incision was closed with interrupted 3- 0 Monocryl in the subcutaneous tissue followed by a running 4-0 subcuticular Monocryl suture. On the left side the mastectomy defect was evaluated, and there appeared to be minimal serratus fascia laterally. Therefore a piece of Contour ADM was obtained and rinsed. The pectoralis muscle was released from the chest wall, and the Contour ADM was then placed along the inframammary fold and repaired with 3-0 PDS suture. A tissue creasing machine operator was made ready for insertion and placed below the ADM and below the pectoralis muscle. The ADM was then secured to the cut edge of the pectoralis muscle using an interrupted 3-0 Monocryl suture. A 15 Cuban John-Lisa drain was placed and secured with 3-0 nylon suture. The skin incision was closed with interrupted 3-0 Monocryl in the subcutaneous tissue followed by a running 4-0 subcuticular Monocryl suture. The nipples were positioned appropriately, and a Tegaderm dressing was applied. The chest area was then wrapped with a Kerlix roll followed by an [place] bandage. LORE TRAORE MD MT: [id number] Name: BHARTI ARRINGTON Account: [id number] : 1980 Procedure Date: 09/25/2016 Document: [id number] cc: Niranjan Borrero MD Y BLENDER Plan of Care - Rafi Higginbotham RN - 09/26/2016 7:01 AM CST Problem: Goal Outcome Summary Goal: Goal Outcome Summary Outcome: Improving Patient is alert and orientated X 4, up with stand by assist, vital signs stable, pain manage with oxycodone, bilateral BJORN in place. Y BLENDER Plan of Care - Keren Agustin RN - 09/25/2016 10:54 PM CST Problem: Goal Outcome Summary Goal: Goal Outcome Summary Outcome: Improving Arrived on floor at 18:15. A&O. AVSS. O2 sat 97% on RA. LS clear. BS active, no flatus yet. Voiding. Bilateral BJORN drains w/ss output. Dressings c/d/i. Ambulated in palacio with a1 twice. Tolerating clear liquids and crackers. Pain managed with morphine q2 hrs, switched over to 5 mg oxycodone @ 22:30.One small bout of emesis ~ 21:30. Relieved with zofran. Pleasant patient. Y BLENDER Brief Op Note - Kathy Carias PA-C - 09/25/2016 5:06 PM CST [facility] Brief Operative Note Pre-operative diagnosis: RIGHT BREAST CANCER Post-operative diagnosis breast cancer Procedure: Procedure(s): BILATERAL NIPPLE SPARING MASTECTOMY, RIGHT BREAST SENTINEL NODE BIOPSY, PORT REMOVAL (NAVDEEP), BILATERAL TISSUE EXPANDERS (LEÓN) Surgeon(s): Surgeon(s) and Role: Panel 1: * Padmini Blunt MD - Primary * Kathy Carias PA-C - Assisting Panel 2: * Lore Traore MD - Primary Estimated blood loss: 105 mL Specimens: ID Type Source Tests Collected by Time Destination A : left mastectomy, suture at axillary tail Tissue Breast, Left SURGICAL PATHOLOGY EXAM Padmini Blunt MD 09/25/2016 1:28 PM B : LEFT RETRO AREOLAR BREAST TISSUE - SUTURE ANTERIOR Tissue Breast, Left SURGICAL PATHOLOGY EXAM Padmini Blunt MD 09/25/2016 1:31 PM C : RIGHT MASTECTOMY SUTURE BEHIND NIPPLE - WANTS FROZEN BEHIND THE NIPPLE Tissue Breast, Right SURGICAL PATHOLOGY EXAM Padmini Blunt MD 09/25/2016 2:26 PM D : RIGHT AXILLARY SENTINEL LYMPH NODE Tissue Lymph Node, [place] SURGICAL PATHOLOGY EXAM Padmini Blunt MD 09/25/2016 2:33 PM E : RIGHT BREAST TISSUE Tissue Breast, Right SURGICAL PATHOLOGY EXAM Padmini Blunt MD 09/25/2016 2:38 PM Findings: Same as above Kathy Carias PA-C Y BLENDER Brief Op Note - Lore Traore MD - 09/25/2016 3:47 PM CST [facility] Brief Operative Note Pre-operative diagnosis: RIGHT BREAST CANCER Post-operative diagnosis breast cancer Procedure: Procedure(s): BILATERAL NIPPLE SPARING MASTECTOMY, RIGHT BREAST SENTINEL NODE BIOPSY, PORT REMOVAL (NAVDEEP), BILATERAL TISSUE EXPANDERS (LEÓN) - Wound Class: I-Clean - Wound Class: I-Clean - Wound Class: I-Clean - Wound Class: I-Clean Surgeon(s): Surgeon(s) and Role: Panel 1: * Padmini Blunt MD - Primary * aKthy Carias PA-C - Assisting Panel 2: * Lore Traore MD - Primary Estimated blood loss: 5 mL Specimens: ID Type Source Tests Collected by Time Destination A : left mastectomy, suture at axillary tail Tissue Breast, Left SURGICAL PATHOLOGY EXAM Padmini Blunt MD 09/25/2016 1:28 PM B : LEFT RETRO AREOLAR BREAST TISSUE - SUTURE ANTERIOR Tissue Breast, Left SURGICAL PATHOLOGY EXAM Padmini Blunt MD 09/25/2016 1:31 PM C : RIGHT MASTECTOMY SUTURE BEHIND NIPPLE - WANTS FROZEN BEHIND THE NIPPLE Tissue Breast, Right SURGICAL PATHOLOGY EXAM Padmini Blunt MD 09/25/2016 2:26 PM D : RIGHT AXILLARY SENTINEL LYMPH NODE Tissue Lymph Node, [place] SURGICAL PATHOLOGY EXAM Padmini Blunt MD 09/25/2016 2:33 PM E : RIGHT BREAST TISSUE Tissue Breast, Right SURGICAL PATHOLOGY EXAM Padmini Blunt MD 09/25/2016 2:38 PM Findings: See op note. Y BLENDER Op Note - Padmini Blunt MD - 09/25/2016 3:30 PM CST General Surgery Operative Note PREOPERATIVE DIAGNOSIS: RIGHT BREAST CANCER, BRCA gene carrier POSTOPERATIVE DIAGNOSIS: same PROCEDURE: Right nipple sparing mastectomy, right sentinel lymph node biopsy, left prophylactic mastectomy REMOVE PORT VASCULAR ACCESS ANESTHESIA: General. PREOPERATIVE MEDICATIONS: clindamycin SURGEON: Padmini Blunt MD SOFTWARE FIRMWARE ENGINEER: Kathy Carias PA-C. Family Resource Coordinator was required owing to challenging exposure and need for retraction. INDICATIONS: Right breast cancer status post neoadjuvant chemotherapy. Patient is a known carrier ofthe BRCA mutation. PROCEDURE: The patient was taken to the operating suite and uneventfully endotracheally intubated. The upper chest and axillary areas were prepped and draped in a sterile fashion. Plastic surgery had previously marked the breasts for recommended incision sites. We began on the left. A radial incision was made and this was taken down through skin and subcutaneous tissue. We began raising flaps circumferentially taking this inferiorly and superiorly. Given that the patient's port was placed virtually within the left breast, I dissected around the port and incorporated this with the breast specimen. The catheter itself was removed. We left a moderate amount of tissue behind the nipple areolar complex and constructed the medial flap. These planes were then taken down circumferentially to the chest wall. I made every attempt to save the medial perforators. We began removing the breast from the chest wall, taking with it the pectoralis fascia. This was taken up toward the left axillary tail and amputated. I removed the rest of the retroareolar tissue and this was marked. I sent this to pathology. The left breast was marked for orientation and sent to pathology. We took some time to maintain hemostasis and a moist lap was placed in the mastectomy site. We then turned our attention toward the right breast. We again made a radial incision and took this down through skin and subcutaneous tissue. We began making circumferential flaps and dissected behind the nipple using cut cautery. This was taken down to the level of the chest wall medially, again trying to spare the perforators. We continued thisdissection circumferentially and removed the breast from the chest wall, again taking with it the pectoralis fascia. This was taken up to the level of the right axilla and the breast was amputated. Thebreast was sent to pathology with a suture at the retroareolar tissue. We requested that pathology inspect this tissue for any signs of malignancy. We then set about performing our sentinel lymph node b iopsy. We followed some blue dye into the right axilla and found a prominent blue node. This was surrounded by a cluster of two other normal-appearing nodes. This cluster was removed and the gamma probe was used. This showed counts of 68. No other significant blue dye or elevated counts were encountered. We inspected the right mastectomy site and ensured hemostasis. We received word from pathology atthis point that the sentinal lymph nodes were negative and the retroareolar tissue was also negative. Plastic surgery entered the case at this point to place tissue expanders bilaterally. At the conclusion of our portion of the case, all lap and needle counts were correct. ESTIMATED BLOOD LOSS: 75 mL INTRAOPERATIVE FINDINGS: Bilateral nipple sparing mastectomy. Negative sentinel lymph node biopsy onthe right. Padmini Blunt MD Y BLENDER documented in this encounter Plan of Treatment Not on filedocumented as of this encounter Procedures Procedure Name Priority Date/Time Associated Diagnosis Comme nts SURGICAL PATHOLOGY Routine 09/25/2016 1:28 PM Res ults for this EXAM HONEY BLENDER procedure are i n the results section. REMOVAL, VASCULAR 09/25/2016 11:40 AM breast cancer ACCESS PORT HONEY BLENDER Special Needs Left port-a-cath INSERTION, TISSUE FILLING HAULER, BREAST, 09/25/2016 11:40 A M HONEY BLENDER breast cancer BILATERAL Special Needs Left port-a-cath BIOPSY, LYMPH NODE, SENTINEL 09/25/2016 11:40 AM HONEY BLENDER b reast cancer Special Needs Left port-a-cath MASTECTOMY, NIPPLE SPARING 09/25/2016 11:40 AM HONEY BLENDER ricardo ast cancer Special Needs Left port-a-cath HEMOGLOBIN STAT 09/25/2016 10:51 AM HONEY BLENDER Resu lts for this procedure are in the resu lts section. HCG QUALITATIVE STAT 09/25/2016 10:51 AM HONEY BLENDER Results for this procedure are in the resu lts section. documented in this encounter Results Surgical pathology exam (09/25/2016 1:28 PM HONEY BLENDER) Component Value Ref Test Analysis Performed [facility] Method Time Signature Copath Report Patient Name: BHARTI ARRINGTON MR#: [id number] Specimen #: [id number] Collected: 09/25/2016 Received: 09/25/2016 Reported: 09/27/2016 13:11 Ordering Phy(s): PADMINI BLUNT Additional Phy(s): LORE TRAORE For improved result formatting, select 'View Enhanced Report Format' under Linked Documents section. SPECIMEN(S): A: Mastectomy, right B: [place] lymph node, right axillary C: Mastectomy, left D: Tissue, left retro areolar E: Breast tissue, right FINAL DIAGNOSIS: A: Right breast, nipple sparing mastectomy- -Benign breast tissue with extensive sclerosis. ??Negative f or residual malignancy (Complete Pathologic Response) -Please see detailed tumor synopsis in the diagnosis comment section B: Lymph node, right axillary sentinel, excision- - Three old lymph nodes negative for metastatic carcinoma (0 /3) C: Left breast, nipple sparing mastectomy- - Benign breast tissue. ??Negative for malignancy. D: Left retroareolar breast tissue, excision- - Benign breast tissue. ??Negative for malignancy. E: Right breast tissue, excision- - Benign breast tissue. ??Negative for malignancy. COMMENT: ? INVASIVE CARCINOMA OF THE BREAST: Clinical History: ?? Prior presurgical (neoadjuvant) therapy for this diagnosis of invasive carcinoma: Specimen ? Procedure: ?Nipple-sparing mastectomy ? Lymph Node Sampling: ?? [place] lymph node(s) ? Specimen Laterality: ?? Right ? Tumor Site: Invasive Carcinoma: No residual tumor pre sent in the specimen (Complete Pathologic Response) Tumor ? Presence of Invasive Carcinoma: ?? No residual invasi ve carcinoma after presurgical (neoadjuvant) therapy ? Histologic Type of Invasive Carcinoma: ?? Other: (Per previous outside biopsy report, patient had invasive ductal carcinoma , [place] grade 3/3 (score 8/9) Margins ? Invasive Carcinoma: ?? Margins cannot be assessed Lymph-Vascular Invasion: ?? Not identified Dermal Lymph-Vascular Invasion: ?? No skin present Microcalcifications: ?? Not identified Treatment Effect: Response in the Breast: ?? No residual inv asive carcinoma is present in the breast after presurgical therapy Treatment Effect: Response in the Lymph Nodes: ?? No lymph n ode metastases and no prominent fibrous scarring in the nodes ? Lymph Nodes ? Total Number of Lymph Nodes Examined: 3 ? Micro/Macro Metastases: ?? Not identified ?Number of Lymph Nodes with Isolated Tumor Smith[place] ls: ?? None ?Number with Macrometastases: 0 ?Number with Micrometastases: 0 ? [place] Lymph Nodes Examined: 3 ? Method of Evaluation: ?? H&E, multiple levels Estrogen receptor-Negative on previous breast core biopsy sp ecimen ([id number]; [facility]) (0% of tumor nuclei stain ing) Progesterone receptor-Negative on previous breast core biops y specimen ([id number]; [facility]) (0% of tumor nuclei stain ing) Her 2 by immunohistochemistry-Negative for her 2 overexpress ion (1+ staining) Pathologic Staging (pTNM) ? TNM Descriptors: ?y (post-treatment) ? Primary Tumor (pT): ?pT0: No evidence of primary tumor ? Regional Lymph Nodes ?Modifier: ?? (sn): Only sentinel node(s) eval uated ?Category (pN): ?? pN0: No regional lymph node metastasis identified histologically Electronically signed out by: Eloise Alaniz M.D. CLINICAL HISTORY: Right breast cancer GROSS: A. The specimen is received fresh with the patient's name an d proper identification a labeled right mastectomy. ??The specimen consists of 593 g yellow-pink fibrofatty mastectomy (19.1 x 16.7 x 3.6 c m). ??There is a suture attached marking nipple bed. ??The nipple bed is inked blue and the remaining tissue is inked black. ??A data entry representative section of the nipple bed is submitted on one avril for frozen section. ??On section the specimen has a yellow-pink fibrofatty center throughout. ??The fibrous tissue accounts for approximately 80% of the total v olume. ??The specimen has a previously been injected with blue dye. ??No definitive invasive lesions identified grossly. ??Deep to the nipple is a diffuse area of slight induration with possible scarring. ??Represen tative sections are submitted. Cassette 1-frozen section Cassette 0-83-rluhpgam around indurated area just deep to ni pple Cassettes 11-inked deep margin Cassettes 06-64-dvizmolgsflytg section from each quadrant Cassettes 16-nipple bed B. The specimen is received fresh with the patient's name an d proper identification labeled right axillary sentinel lymph nodes . ??The specimen consists of three yellow-pink fatty nodes ranging f rom 1.1 cm up to 1.4 cm. ??The specimen is entirely submitted on one uck for frozen section. ??The specimen is entirely submitted in one cassette. Floral Arranger direct, per Dr. Alaniz. C. The specimen is received in formalin with the patient's n adriel and proper identification labeled left mastectomy. ??The speci men consists of 649 g yellow-pink fibrofatty mastectomy(18.6 x 18.4 x 3.6 cm). ??There is a suture attached at the axillary tail. ??There is a Port -A-Cath embedded in a upper inner quadrant. ??The presumable nipple bed is inked blue and the remaining tissue is inked black. ??Upon serial sectioning the specimen has a yellow-pink fibrofatty center throughout. ??The majority of the fibrous tissue is in the mid specimen and ac counts for approximately 75% of the total volume. ??No definitive invas sen lesions are identified grossly. ??Communications Intern sections are submit ger. Cassette 1-2-upper inner quadrant Cassette 3-4-lower inner quadrant Cassette 5-inked deep margin Cassette 6-7-mid specimen Cassette 8-9-upper outer quadrant Cassette 10-11-lower outer quadrant Cassette 12-nipple bed D. The specimen is received in formalin with the patient's n adriel and proper identification labeled left retroareolar breast tiss ue. ??The specimen consists of a 7 g collectively of two yellow-pink f ibrofatty breast fragments ranging from 2.2 cm up to 5.3 x 3.5 x 1.3 c m. ??The larger tissue fragment has a suture marking the anterior. ?? The anterior margin is inked blue the remaining tissue is inked black. ?? Upon serial section the specimen has a pink fibrous center throughout wi th a small amount of yellow adipose tissue. ??The specimen has a pink f ibrous center throughout. ??No lesions identified grossly. ??The specimen is entirely sequentially submitted. E. The specimen is received in formalin with the patient's n adriel and proper identification labeled right breast tissue . ??The specimen consists of 43 g collectively of three yellow-pink fibrofatt y benign breast fragments ranging from 1.5 cm up to 11.2 x 3.3 x 2.2 cm. ??Upon serial section the specimen is a yellow fatty center through out with a small amount of fibrous tissue accounting for less than 5% o f the total volume. ??Communications Intern sections are submitted in four flower ettes. (Dictated by: Les Hanks 09/25/2016 04:14 PM) INTRAOPERATIVE CONSULTATION: Frozen section diagnosis: A., B.-No evidence of malignancy, Dr. Alaniz MICROSCOPIC: A. Sections through the grossly mentioned indurated area laura w sclerotic breast tissue without evidence of residual carcinoma (comple te pathologic response). ??The nipple bed appears unremarkable. B.-E. A formal microscopic exam is performed. CPT Codes: A: 95203-RP0, 55643-FP B: 58954-CL5, 09623-EG C: 90391-CF2 D: 55801-KB5 E: 54086-ZL2 TESTING LAB LOCATION: [address] ??[id number] COLLECTION SITE: Client: [facility] Location: SHOR (S) Specimen (Source) Anatomical Collection Method Collection Time Re ceived Time Location / / Volume Laterality Tissue specimen LEFT BREAST 09/25/2016 1:28 PM (specimen) STRUCTURE / HONEY BLENDER Unknown Comment: *00016 JV Weight: 635 gm Power Port Present Tissue specimen (specimen) LEFT BREAST STRUCTURE / Unknown 09/25/2016 1:31 PM HONEY BLENDER Comment: *[id number] Tissue specimen (specimen) RIGHT BREAST STRUCTURE / 2:26 PM HONEY BLENDER Unknown Comment: WT 600 GM OR 40 *[id number] Tissue specimen (specimen) SPECIMEN FROM SENTINEL LYMPH 09/25/2016 2:33 PM HONEY BLENDER NODE / Unknown Comment: OR 40 *[id number] Tissue specimen (specimen) RIGHT BREAST STRUCTURE / 2:38 PM HONEY BLENDER Unknown Padmini Blunt MD LAB - BEAKER AP Performing Organization Address City/State/ZIP Code Phon e Number COPATH HCG qualitative (09/25/2016 10:51 AM HONEY BLENDER) Patholo gist Method Time Signature HCG Qualitative Negative NEG [facility] Specimen Anatomical Collection Method Collection Time Receive d Time (Source) Location / / Volume Laterality Blood specimen 09/25/2016 10:51 7 (specimen) AM HONEY BLENDER 10:55 AM HONEY BLENDER Magdy Betts MD LAB - BLOOD ORDERABLES Performing Organization Address City/[facility]/ZIP Code Phon e Number M [facility] [address] [phone] [facility] [address] [address], [facility] [phone] Hemoglobin (09/25/2016 10:51 AM HONEY BLENDER) P athologist Signature Hemoglobin 12.8 11.7 - 15.7 [place] g/dL [facility] Specimen Anatomical Collection Method Collection Time Receive d Time (Source) Location / / Volume Laterality Blood specimen 09/25/2016 10:51 7 (specimen) AM HONEY BLENDER 10:55 AM HONEY BLENDER Magdy Betts MD LAB - BLOOD ORDERABLES Performing Organization Address City/[facility]/ZIP Code Phon e Number M [facility] [address] [phone] [place] [address] [address], [facility] [phone] documented in this encounter Visit Diagnoses Not on filedocumented in this encounter Administered Medications Inactive Administered Medications - up to 3 most recent administrations Medication Order MAR Action Action Date Dose Rate Site acetaminophen (TYLENOL) tablet Given 09/25/2016 11:15 AM HONEY BLENDER 1,0 00 mg 1,000 mg 1,000 mg, Oral, ONCE, On Fri09/25/16 at 1045, For 1 dose, Maximum acetaminophen dose from all sources = 75 mg/kg/day not to exceed 4 gram, Pre-procedure acetaminophen (TYLENOL) tablet 975 mg Given 09/26/2016 9:20 AM HONEY BLENDER 975 mg 975 mg, Oral, EVERY 8 HOURS, First dose on Fri09/25/16 at 2200, For 3 days, Do not use if patient has an active opioid/acetaminophen analgesic order for pain Maximum acetaminophen dose from all sources = 75 mg/kg/day not to exceed 4 grams/day., Post-procedure Given 09/25/2016 10:29 PM HONEY BLENDER 975 mg bupivacaine (MARCAINE) 0.25 % Given 09/25/2016 3:54 PM HONEY BLENDER 15 mL s Right Breast injection PRN, Starting on Fri09/25/16 at 1553, Intra-procedure Given 09/25/2016 3:53 PM HONEY BLENDER 15 mLs Left Breast clindamycin (CLEOCIN) capsule 300 mg Routine, 300 mg, Oral, EVERY 8 HOURS, Fi rst dose (after last modification) on Maty 09/26/16 at 1999, Indications: Perioperative Pharmacopro phylaxis, Post-procedure clindamycin (CLEOCIN) infusion 600 New Bag 09/26/2016 12:14 PM HONEY BLENDER 600 mg 100 mL/hr mg Routine, 600 mg, Intravenous, EVERY 8 HOURS, First dose on Fri09/25/16 at 1999, Indications: Perioperative Pharmacoprophylaxis, Post-procedure New Bag 09/26/2016 3:29 AM HONEY BLENDER 600 mg 100 mL/hr New Bag 09/25/2016 8:54 PM HONEY BLENDER 600 mg 100 mL/hr fentaNYL Citrate (PF) (SUBLIMAZE) injection Given 09/25/2016 5:38 PM HONEY BLENDER 50 mcg 25-50 mcg 25-50 mcg, Intravenous, EVERY 2 MIN PRN, other, acute pain, Starting on Fri09/25/16 at 1643, MAX cumulative dose = 250 mcg. Use Fentanyl initially, as a short acting agent for acute pain control. If insufficient, or a longer acting agent is needed, begin Morphine or Hydromorphone if ordered., PACU Given 09/25/2016 5:24 PM HONEY BLENDER 25 mcg gabapentin (NEURONTIN) tablet 600 mg Given 09/25/2016 11:19 AM HONEY BLENDER 600 mg 600 mg, Oral, ONCE, On Fri09/25/16 at 1045, For 1 dose, Pre-procedure HYDROmorphone (PF) (DILAUDID) injection Given 09/25/2016 5:39 PM HONEY BLENDER 0.2 mg 0.3-0.5 mg 0.3-0.5 mg, Intravenous, EVERY 5 MIN PRN, other, acute pain.?May administer if Respiratory Rate is greater than 10, Starting on Fri09/25/16 at 1643, If fentanyl is also ordered, use HYDROmorphone if pain control insufficient with fentanyl or a longer acting agent is needed. Max cumulative dose = 3 mg (Notify anesthesiologist once 2mg is reached), PACU Given 09/25/2016 5:24 PM HONEY BLENDER 0.3 mg lactated ringers infusion New 09/25/2016 3:42 PM HONEY BLENDER at 25 mL/hr, Intravenous, CONTINUOUS, IF patient NOT on dialysis., Pre-procedure, Starting on Fri09/25/16 at 1045, Until Fri09/25/16 at 1607 New Bag 09/25/2016 1:25 PM HONEY BLENDER New Bag 09/25/2016 12:31 PM HONEY BLENDER lactated ringers infusion New Bag 09/26/2016 9:22 AM HONEY BLENDER 100 mL/hr at 100 mL/hr, Intravenous, CONTINUOUS, Saline lock IVF when po intake > 300 ml., Post-procedure, Starting on Fri09/25/16 at 1815, Until Maty 09/26/16 at 1237 New Bag 09/25/2016 10:29 PM HONEY BLENDER 100 mL/hr Rate/Dose Verify 09/25/2016 6:39 PM HONEY BLENDER 100 mL/hr methocarbamol (ROBAXIN) tablet 750 mg Given 09/26/2016 10:34 AM HONEY BLENDER 750 mg 750 mg, Oral, EVERY 6 HOURS PRN, muscle spasms, Starting on Fri09/25/16 at 1810, Post-procedure methylene blue 1 % Given 09/25/2016 11:55 AM 5 mLs Operative Site/Surgical injection HONEY BLENDER Site PRN, Starting on Fri09/25/16 at 1200, Intra-procedure morphine (PF) injection 2-4 mg Given 09/25/2016 8:54 PM HONEY BLENDER 2 mg 2-4 mg, Intravenous, EVERY 2 HOURS PRN, severe pain, or patient unable to take PO, Starting on Fri09/25/16 at 1810, Hold while on HOUSEHOLD PERSONAL ASSISTANT., Post-procedure Given 09/25/2016 6:37 PM HONEY BLENDER 2 mg ondansetron (ZOFRAN) injection 4 mg Given 09/25/2016 6:57 PM HONEY BLENDER 4 mg 4 mg, Intravenous, EVERY 6 HOURS PRN, nausea, vomiting, Administer over 2-5 Minutes, Starting on Fri09/25/16 at 1810, This is Step 1 of nausea and vomiting management. If nausea not resolved in 15 minutes, go to Step 2 prochlorperazine (COMPAZINE). Irritant., Post-procedure ondansetron (ZOFRAN-ODT) ODT tab 4 mg 4 mg, Oral, EVERY 6 HOURS PRN, nausea, S tarting on Fri09/25/16 at 1810, This is Step 1 of nausea and vomiting management. If nausea not resolved in 15 minutes, go to Step 2 prochlorperazine (COMPAZINE). Do not push through foil backing. Peel back foil and gently remove. Place on tongue immediately. A dministration with liquid unnecessary, Post-procedure oxyCODONE (OxyCONTIN) 12 hr tablet 10 mg Given 09/25/2016 11:18 AM HONEY BLENDER 10 mg 10 mg, Oral, ONCE, On Fri09/25/16 at 1045, For 1 dose, DO NOT CRUSH., Pre-procedure oxyCODONE (ROXICODONE) IR tablet 5-10 mg Given 09/26/2016 2:58 PM HONEY BLENDER 10 mg 5-10 mg, Oral, EVERY 3 HOURS PRN, moderate to severe pain, Starting on Fri09/25/16 at 1810, IF CrCl is UNKNOWN start at lowest end of dosing range. Hold while on HOUSEHOLD PERSONAL ASSISTANT or with regular IV opioid dosing., Post-procedure Given 09/26/2016 7:45 AM HONEY BLENDER 10 mg Given 09/26/2016 3:24 AM HONEY BLENDER 10 mg povidone-iodine 10% Given 09/25/2016 12:31 517 ml given Operative (17mL) (BETADINE) in PM HONEY BLENDER Site /Surgical Site 500mL saline irrigation PRN, Starting on Fri09/25/16 at 1231, Intra-procedure prochlorperazine (COMPAZINE) injection 5 -10 mg 5-10 mg, Intravenous, EVERY 6 HOURS PRN, nausea, vomiting, Starting on Fri09/25/16 at 1810, This is Step 2 of nausea and vo miting management. If nausea not resolved in 15 minutes, give metoclopramide (REGLAN), if ordere d (step 3 of nausea and vomiting management), Post-procedure prochlorperazine (COMPAZINE) tablet 5-10 mg 5-10 mg, Oral, EVERY 6 HOURS PRN, nausea , vomiting, Starting on Fri09/25/16 at 1810, This is Step 2 of nausea and vomiting management. If n ausea not resolved in 15 minutes, give metoclopramide (REGLAN), i f ordered (step 3 of nausea and vomiting management), Post-procedure senna-docusate (SENOKOT-S;PERICOLACE) Given 09/26/2016 9:[address] 2 tablets 8.6-50 MG per tablet 1-2 tablet 1-2 tablet, Oral, 2 TIMES DAILY, First dose on Fri09/25/16 at 2100, Start with 1 tablet PO BID, If no bowel movement in 24 hours, increase to 2 tablets PO BID. Hold for loose stools., Post-procedure Given 09/25/2016 8:54 PM HONEY BLENDER 1 tablet sodium chloride (PF) 0.9% Given 09/25/2016 11:55 AM 5 mLs Operative Site/Surgical PF flush 3 mL HONEY BLENDER Site 3 mL, Intracatheter, EVERY 1 HOUR PRN, line flush, for peripheral IV flush post IV meds, Starting on Fri09/25/16 at 1033, Pre-procedure sodium chloride 0.9% (bag) Given 09/25/2016 12:25 PM 1,000 mLs Operative irrigation HONEY BLENDER Site/Surgical S ite PRN, Starting on Fri09/25/16 at 1225, Intra-procedure sodium chloride 0.9% Given 09/25/2016 2:51 PM 1,000 mLs Operative (bottle) irrigation HONEY BLENDER Site/Surgical S ite PRN, Starting on Fri09/25/16 at 1200, Intra-procedure Given 09/25/2016 12:00 PM HONEY BLENDER 1,000 mLs Oper ative Site/Surgical Site documented in this encounter Active and Recently Administered Medications Times are shown in HONEY BLENDER. Scheduled Medication Order 09/24/2016 09/25/2016 09/26/2016 acetaminophen (TYLENOL) tablet 1,000 mg (COMPLETED) 1115 (Given - Provider: Julius Ortega, NORA) 1,000 mg, Oral, ONCE, Fri09/25/16 at 1045 , For 1 dose, Maximum acetaminophen dose from all sources = 75 mg/kg/day not to exceed 4 gram, Pre-procedure acetaminophen (TYLENOL) tablet 975 mg 22 (Given - Provider: Keren Agustin RN) 0702 (Not Given - Provider: Rafi Lopez RN - Reason: Patient/family refused)0920 (Given - Provider: Audelia Haque RN)1532 (Not Given - Provider: Nida Nichole - Reason: Other - Comment: dose rescheduled) 975 mg, Oral, EVERY 8 HOURS, First dose on Fri09/25/16 at 2200, For 3 days, Do not use if patient has an active opioid/acetaminophen analgesic order for pain Maximum acetaminophen dose from all sources = 75 mg/kg/day not to exceed 4 grams/day., Post-procedure clindamycin (CLEOCIN) capsule 300 mg 300 mg, Oral, EVERY 8 HOURS, First dose on Maty 09/26/16 at 1999, Indications: Surgical Prophylaxis, Post-procedure clindamycin (CLEOCIN) infusion 600 mg (CANCELED) 2053 (New Bag - Provider: Keren Agustin RN) 032 (New Bag - Provider: Rafi Lopez RN)1214 (New Bag - Provider: Audelia Haque RN) 600 mg, Intravenous, EVERY 8 HOURS, Firs t dose on Fri09/25/16 at 1999, Indications: Surgical Prophylaxis, Post-procedure clindamycin (CLEOCIN) infusion 900 mg (COMPLETED) 1156 (Given - Provider: Ishan Vuong, LAY OUT HELPER MAINTENANCE AND ENGINEERING MANAGER) 900 mg, Intravenous, PRE-OP/PRE-PROCEDUR E, Starting Fri09/25/16 at 1033, For 1 dose, Give first dose within 1 hour PRIOR to incision., Indications: Surgical Prophylaxis, Pre-procedure gabapentin (NEURONTIN) tablet 600 mg (COMPLETED) 1118 (Given - Provider: Julius Ortega RN) 600 mg, Oral, ONCE, Fri09/25/16 at 1045, For 1 dose, Pre-procedur e oxyCODONE (OxyCONTIN) 12 hr tablet 10 mg (COMPLETED) 1117 (Given - Provider: Julius Ortega, NORA) 10 mg, Oral, ONCE, Fri09/25/16 at 1045, For 1 dose, DO NOT CRUSH., Pre-procedure senna-docusate (SENOKOT-S;PERICOLACE) 8.6-50 MG per tablet 1 -2 tablet 2053 (Given - Provider: Keren Agustin RN) 0920 (Given - Provider: Audelia Haque RN) 1-2 tablet, Oral, 2 TIMES DAILY, First d ose on Fri09/25/16 at 2100, Start with 1 tablet PO BID, If no bowel movement in 24 hours, increase to 2 tablets PO BID. Hold for loose stools., Post-procedure sodium chloride (PF) 0.9% PF flush 3 mL 2236 (Not Given - Provider: Keren Agustin RN - Reason: IV Infusing) 0702 (Not Given - Provider: Rafi Lopez RN - Reason: IV Infusing)1532 (Not Given - Provider: Nida Nichole - Reason: Loss of IV access) 3 mL, Intracatheter, EVERY 8 HOURS, Firs t dose on Fri09/25/16 at 2200, And Q1H PRN, to lock peripheral IV dormant line., Post-procedure Continuous Medication Order 09/24/2016 09/25/2016 09/26/2016 lactated ringers infusion (CANCELED) 111 3 (New Bag - Provider: Julius Ortega RN)1231 (New Bag - Provider: Ishan Vuong APRN CRNA)1325 (New Bag - Provider: David Haney)1542 (New Bag - Provider: Ishan Vuong APRN MAINTENANCE AND ENGINEERING MANAGER) at 25 mL/hr, Intravenous, CONTINUOUS, IF patient NOT on dialysis., Pre- procedure, Starting Fri09/25/16 at 1045, Until Fri09/25/16 at 1607 1605 (Anesthesia Volume Adjustment - Provider: Ishan Vuong APRN CRNA) lactated ringers infusion (CANCELED) 181 5 (Rate/Dose Verify - Provider: Keren Agustin RN)1839 (Rate/Dose Verify - Provider: Keren Agustin RN)2229 (New Bag - Provider: Keren Agustin RN) 0922 (New Bag - Provider: Audelia monzon RN) at 100 mL/hr, Intravenous, CONTINUOUS, S dang lock IVF when po intake > 300 ml., Post-procedure, Starting 09/25/16 at 1815, Until Maty 09/26/16 at 1237 PRN Medication Order 09/24/2016 09/25/2016 09/26/2016 acetaminophen (TYLENOL) tablet 650 mg 650 mg, Oral, EVERY 4 HOURS PRN, other, surgical pain, Starting 09/28/16 at 2200, May give first dose 4 hours after last scheduled dose of acetaminophen Maximum acetaminophen dose from all sources = 7 5 mg/kg/day not to exceed 4 grams/day., Post-procedure benzocaine-menthol (CHLORASEPTIC) 6-10 MG lozenge 1-2 lozenge 1-2 lozenge, Buccal, EVERY 1 HOUR PRN, s ore throat, Starting 09/25/16 at 1810, For sore throat without fever., Post-procedure bupivacaine (MARCAINE) 0.25 % injection (CANCELED) 1553 (Given - Provider: Lore Traore MD)1554 (Given - Provider: Lore Traore MD) PRN, Starting Fri09/25/16 at 1553, Intra-procedure clindamycin (CLEOCIN) capsule 300 mg 300 mg, Oral, HOLD, Starting Fri09/25/16 at 1825, Clarify with Dr. Traore when to change to PO Clindamycin and d/c IV Clindamycin. frequency q8h, Indications: Surgical Prophylaxis, Post-procedure fentaNYL Citrate (PF) (SUBLIMAZE) injection 25-50 mcg (CANCE LED) 1724 (Given - Provider: Angela Mosley, NORA)1738 (Given - Provider: Angela Mosley RN) 25-50 mcg, Intravenous, EVERY 2 MIN PRN, Starting Fri09/25/16 at 1643, other, acute pain, MAX cumulative dose = 250 mcg. Use Fentanyl initially, as a short acting agent for acute pain control. If insuffi cient, or a longer acting agent is neede d, begin Morphine or Hydromorphone if ordered., PACU HYDROmorphone (PF) (DILAUDID) injection 0.3-0.5 mg (CANCELED ) 1724 (Given - Provider: Angela Mosley RN)173 (Given - Provider: Angela Mosley RN - Comment: remaining vial of dilaudid given) 0.3-0.5 mg, Intravenous, EVERY 5 MIN PRN , Starting Fri09/25/16 at 1643, Until Fri09/25/16 at 1805, other, acute pain.?May administer if Respiratory Rate is greater than 10, PACU, If fentanyl is also or dered, use HYDROmorphone if pain control insufficient with fentanyl or a longer acting agent is needed. Max cumulative dose = 3 mg (Notify anesthesiologist once 2mg is reached) hydrOXYzine (ATARAX) tablet 25 mg 25 mg, Oral, EVERY 6 HOURS PRN, itching, Starting Fri09/25/16 at 1810, Caution to be used when administering multiple Central Nervous System (REFORESTATION WORKER) depressing meds within a short time frame., Post-procedure lidocaine (LMX4) cream Topical, EVERY 1 HOUR PRN, pain, with VA D insertion or accessing implanted port., Starting Fri09/25/16 at 1810, Do NOT give if patient has a history of allergy to any local anesthetic or any penny prod uct. Apply 30 minutes prior to VAD inser tion or port access. MAX Dose: 2.5 g (?? of 5 g tube), Post-procedure lidocaine 1 % 1 mL 1 mL, Other, EVERY 1 HOUR PRN, mild pain with VAD insertion or accessing implanted port, Starting Fri09/25/16 at 1810, Do NOT give if patient has a history of allergy to any local anesthetic or any campos e product. MAX dose 1 mL subcutaneous O R intradermal in divided doses., Post-procedure methocarbamol (ROBAXIN) tablet 750 mg 1034 (Given - Provider: Audelia Haque RN) 750 mg, Oral, EVERY 6 HOURS PRN, muscle spasms, Starting Fri09/25/16 at 1810, Post-procedure methylene blue 1 % injection (CANCELED) 1155 (Given - Provider: Padmini Blunt MD) PRN, Starting Fri09/25/16 at 1200, Intra-procedure morphine (PF) injection 2-4 mg 1836 (Giv en - Provider: Keren Agustin RN)2053 (Given - Provider: Keren Agustin RN) 2-4 mg, Intravenous, EVERY 2 HOURS PRN, Starting Fri09/25/16 at 1810, severe pain, or patient unable to take PO, Hold while on HOUSEHOLD PERSONAL ASSISTANT., Post-procedure naloxone (NARCAN) injection 0.1-0.4 mg 0.1-0.4 mg, Intravenous, EVERY 2 MIN PRN , opioid reversal, Starting Fri09/25/16 at 1810, For respiratory rate LESS than or EQUAL to 8. Partial reversal dose: 0.1 mg titrated q 2 minutes for Analgesia Luis e Effects Monitoring Sedation Level of 3 (frequently drowsy, arousable, drifts to sleep during conversation).Full reversal dose: 0.4 mg bolus for Analgesia Side Effects Monitoring Sedation Level of 4 (s omnolent, minimal or no response to stimulation)., Post-procedur e ondansetron (ZOFRAN) injection 4 mg(Linked Group 1) 1856 (Given - Provider: Keren Agustin RN) 4 mg, Intravenous, EVERY 6 HOURS PRN, na usea, vomiting, Administer over 2-5 Minutes, Starting Fri09/25/16 at 1810, This is Step 1 of nausea and vomiting management. If nausea not resolved in 15 minutes, go to Step 2 prochlorperazine (COMPAZINE). Irritant., Post-proce dure ondansetron (ZOFRAN-ODT) ODT tab 4 mg(Linked Group 1) 1856 (See Alternative - Provider: Keren Agustin RN) 4 mg, Oral, EVERY 6 HOURS PRN, nausea, S tarting Fri09/25/16 at 1810, This is Step 1 of nausea and vomiting management. If nausea not resolved in 15 minutes, go to Step 2 prochlorperazine (COMPAZINE). Do not push through foil backing. Peel back foil and gently remove. Place on tongue immediately. Administration with liquid unnecessary, Post-procedure oxyCODONE (ROXICODONE) IR tablet 5-10 mg 2229 (Given - Provider: Keren Agustin, NORA)2344 (Given - Provider: Keren Agustin RN) 0324 (Given - Provider: Rafi Lopez RN)0745 (Given - Provider: Audelia Haque, NORA)1458 (Given - Provider: Audelia Haque RN) 5-10 mg, Oral, EVERY 3 HOURS PRN, modera te to severe pain, Starting Fri09/25/16 at 1810, IF CrCl is UNKNOWN start at lowest end of dosing range. Hold while on HOUSEHOLD PERSONAL ASSISTANT or with regular IV opioid dosing., Post-procedure povidone-iodine 10% (17mL) (BETADINE) in 500mL saline irriga tion (CANCELED) 1231 (Given - Provider: Lore Traore MD - Comment: PRN) 517 ml given, PRN, Starting Fri09/25/16 at 1231, Intra-procedure prochlorperazine (COMPAZINE) injection 5-10 mg(Linked Group 2) 5-10 mg, Intravenous, EVERY 6 HOURS PRN, nausea, vomiting, Starting Fri09/25/16 at 1810, This is Step 2 of nausea and vomiting management. If nausea not resolved in 15 minutes, give metoclopramide (ALPA N), if ordered (step 3 of nausea and vomiting management), Post- procedure prochlorperazine (COMPAZINE) tablet 5-10 mg(Linked Group 2) 5-10 mg, Oral, EVERY 6 HOURS PRN, nausea , vomiting, Starting Fri09/25/16 at 1810, This is Step 2 of nausea and vomiting management. If nausea not resolved in 15 minutes, give metoclopramide (REGLAN), if ordered (step 3 of nausea and vomiting management), Post-procedu re sodium chloride (PF) 0.9% PF flush 3 mL (CANCELED) 1155 (Given - Provider: Padmini Blunt MD - Comment: Mixed with Methyl Blue) 3 mL, Intracatheter, EVERY 1 HOUR PRN, l ine flush, for peripheral IV flush post IV meds, Starting Fri09/25/16 at 1033, Pre-procedure sodium chloride (PF) 0.9% PF flush 3 mL 3 mL, Intracatheter, EVERY 1 HOUR PRN, l ine flush, for peripheral IV flush post IV meds, Starting Fri09/25/16 at 1810, Post-procedure sodium chloride 0.9% (bag) irrigation (CANCELED) 1225 (Given - Provider: Lore Traore MD - Comment: To fill Expanders) PRN, Starting Fri09/25/16 at 1225, Intra-procedure sodium chloride 0.9% (bottle) irrigation (CANCELED) 1200 (Given - Provider: Padmini Blunt MD - Comment: PRN)1451 (Given - Provider: Padmini Blunt MD - Comment: PRN) PRN, Starting Fri09/25/16 at 1200, Intra-procedure Linked Groups Order Group 1: ondansetron (ZOFRAN-ODT) ODT tab 4 mgJump to med 4 mg, Oral, EVERY 6 HOURS PRN, nausea, S tarting Fri09/25/16 at 1810
This is Step 1 of nausea and vomiting management. If nausea not resolved in 15 minutes, go to Step 2 prochl orperazine (COMPAZINE). Do not push thro ugh foil backing. Peel back foil and gently remove. Place on tongue immediately. Administration with liquid unnecessary
Post-procedure Or ondansetron (ZOFRAN) injection 4 mgJump to med 4 mg, Intravenous, EVERY 6 HOURS PRN, na usea, vomiting, Administer over 2-5 Minutes, Starting Fri09/25/16 at 1810
This is Step 1 of nausea and vomiting management. If nausea n ot resolved in 15 minutes, go to Step 2 prochlorperazine (COMPAZINE). Irritant.
Post-procedure Group 2: prochlorperazine (COMPAZINE) injection 5-10 mgJump to med 5-10 mg, Intravenous, EVERY 6 HOURS PRN, nausea, vomiting, Starting Fri09/25/16 at 1810
This is Step 2 of nausea and vomiting management. If nausea not resolved in 15 minutes, give met oclopramide (REGLAN), if ordered (step 3 of nausea and vomiting management)
Post-procedure Or prochlorperazine (COMPAZINE) tablet 5-10 mgJump to med 5-10 mg, Oral, EVERY 6 HOURS PRN, nausea , vomiting, Starting Fri09/25/16 at 1810
This is Step 2 of nausea and vomiting management. If nausea not resolved in 15 minutes, give metoclopra mide (REGLAN), if ordered (step 3 of dimas sea and vomiting management)
Post-procedure documented in this encounter Care Teams Milk Runner Relationship Specialty Start Date End Date Richard Montalvo PCP - General Family Practice 09/25/16 03/05/[address] [id number] documented as of this encounter
--- OUTSIDE RECORDS SUMMARY | 2022-03-13 15:43 | XMS_ITS | Encounter Summary ---
:1980 Author Organization [place] Address [facility] [place] [address] Care Team Providers Name Role Phone Richard Montalvo Primary Care Provider Reason for Visit Auth/Cert Specialty Diagnoses / Procedures Referred By Contact Refer red To Contact Surgery Diagnoses BREAST RECONSTRUCTION Sh Periop Services Procedures COMBINED RECONSTRUCT BREAST BILATERAL, IMPLANT PROSTHESIS BILATERAL [address] [place] [address] Phone: Referral ID Status Reason Start Date Expiration Date Visits Requ ested Visits Authorized [id number] 1 1 Encounter Details Date Type Department Care Team Description 05/07/2017 Surgery [facility] Lore Traore ERAL SECOND STAGE [place] [facility] MD [place] BREAST RECONSTRUCTION Services [facility] WITH IMPLANT PLACEMENT [address] [place] [address] [place] [phone] (Wo rk) Surgery Details Date/Time Status Location OR Service Patient Case Case Traum a Class Class Type Case? 05/07/17 7:30 Posted Z SH SD SD 20 Plastics & Same Day AM Reconstruction Surgery Panel 1 Procedure LRB Anes Op Region Wound Class Commen ts BILATERAL SECOND STAGE Bilateral General Breast I-Clean BI LATERAL SECOND STAGE BREAST RECONSTRUCTION TARYN AST RECONSTRUCTION WITH IMPLANT PLACEMENT WI TH IMPLANT PLACEMENT Surgeon Surgeon Role Service Panel Lore Traore MD Primary Plastics & Reconstruc tion 1 documented in this encounter Social History Tobacco [...] your concerns. Discharge Instructions following Breast Surgery [facility] Day [facility] Diet: Resume diet as [...] RECONSTRUCTION SURGEON: Lore Traore MD OR STAFF: Ceramic Engineer: Liyah Gomez RN Scrub Person: Shellie Hinson ANESTHESIA: General ESTIMATED BLOOD LOSS: * No blood loss amount entered * SPECIMEN(S): * No specimens in log * PROCEDURES: 1. Removal of bilateral tissue supervisor industrial arts education(s). 2. Placement of bilateral silicone breast implant(s). [...] divided along its fibers. The underlying tissue supervisor industrial arts education was ruptured and removed from the pocket. [...] divided along its fibers. The underlying tissue supervisor industrial arts education was ruptured and removed from the pocket. [...] Implant Name Type Inv. Item Serial No. Pivot End Polisher Lot No. LRB No. Used TISSUE SEWING MACHINE ATTACHMENT TESTER IMPLANT [employer]GAN 500ML [id number] Breast Implant/Tissue Paleologist TISSUE SEWING MACHINE ATTACHMENT TESTER IMPLANT [employer] 500ML [id number] [employer] Left 1 Chucho sanders smooth round extra-full profile gel breast implant [id number] [employer] [id number] Left 1 TISSUE SEWING MACHINE ATTACHMENT TESTER IMPLANT [employer]GAN 500ML [id number] Breast Implant/Tissue Paleologist TISSUE SEWING MACHINE ATTACHMENT TESTER IMPLANT [employer] 500ML [id number] [employer] Right 1 Chucho sanders smooth round extra-full profile gel breast implant [id number] [employer] [id number] Right 1 IMPLANT INFORMATION: Both implants are SRX-700 cc. Lore Traore MD Plastic Surgery [facility] [phone] (office) documented in this encounter Plan of [...] HCG qualitative urine (05/07/2017 6:55 AM CDT) P athologist Signature HCG Qual Urine Negative NEG^Negati 05/07/2017 [facility] 7:43 AM CDT [facility] Comment: This test is for screening purposes. ??R esults should be interpreted along with the clinical picture. ??Confirmation te sting is available if warranted by ordering [id number], HCG Quantitative Pregna ncy. Specimen Anatomical Collection Method Collection Time Receive d Time (Source) Location / / Volume Laterality Urine specimen URINE SPECIMEN 05/07/2017 6:55 AM 05/07 7:36 (specimen) OBTAINED BY CLEAN CDT AM CDT CATCH PROCEDURE / Unknown Lore Traore MD LAB - URINE ORDERABLES Performing Organization Address City/State/ZIP Code Phon e Number M [facility] [address] [phone] [facility] [address] [address], U [phone] documented in this encounter Visit Diagnoses Not [...] mg/kg/day not to exceed 4 gram, Pre-procedure bupivacaine (MARCAINE) 0.25 % Given 05/07/2017 8:36 AM CDT 10 mL s Right Breast injection PRN, Starting on Fri05/07/17 at 0826, Intra-procedure Given 05/07/2017 8:26 AM CDT 10 mLs Left Breast clindamycin 900 mg + Given 05/07/2017 8:14 AM 1,000 mLs Operative gentamicin 120 mg + NaCl CDT Site/Surgical Site 0.9 % 1000 mL BOTTLE PRN, Starting on Fri05/07/17 at 0814, Intra-procedure fentaNYL (PF) (SUBLIMAZE) injection 25-5 0 mcg [...] 05/07/2017 acetaminophen (TYLENOL) tablet 1,000 mg (COMPLETED) 07 (Given - Provider: Margaret Corral RN) 1,000 [...] ( COMPLETED) 0951 (Given - Provider: Traci Logan RN) 1 tablet, Oral, ONCE, On Fri05/07/17 [...] 25-50 mcg 0938 (Given - Provider: Traci Logan RN) 25-50 mcg, Intravenous, EVERY 5 MIN PRN, [...] mg 0.3-0.5 mg, Intravenous, EVERY 10 MIN CO N, Starting Fri05/07/17 at 0857, Until Fri05/07/17 [...] ONCE PRN, for non-s pecific reversal of DETECTIVE PRIVATE EYE anticholinergic side effects, Starting Fri05/07/17 at 0857, [...] Minutes, Starting Fri05/07/17 at 0857, For 2 doses
MAX total dose = 8 mg, including OR dosing. This is step 1 of the nausea and vomiting protocol. &nbsp ;If not resolved in 15 minutes, then go to step 2 (Prochlorperazine if ordered). Irritant.
PACU/Phase II documented in this encounter Care Teams Wildlife Removal Specialist Relationship Specialty Start Date End Date Richard Montalvo PCP - General Family Practice 09/25/16 03/05/[address] [address] documented as of this encounter
--- OUTSIDE RECORDS SUMMARY | 2022-03-13 15:43 | XMS_ITS | Encounter Summary ---
:1980 Author Organization [place] Address [address] [place] [address] Care Team Providers Name Role Phone Richard Montalvo Primary Care Provider Reason for Visit Auth/Cert Specialty Diagnoses / Procedures Referred By Contact Refer red To Contact Surgery Diagnoses BREAST RECONSTRUCTION Sh Periop Services Procedures COMBINED RECONSTRUCT BREAST BILATERAL, IMPLANT PROSTHESIS BILATERAL [address] [place] [address] Phone: Referral ID Status Reason Start Date Expiration Date Visits Requ ested Visits Authorized [id number] 1 1 Encounter Details Date Type Department Care Team Description 05/07/2017 Anesthesia Event [facility] Lali Miller MD [place] [facility] [address] [place] [address] [place] [address] Anesthesia Record Procedure Summary Procedure Name Responsible Anesthesia Start Anesthesia Stop Anesthesiologist Time Time BILATERAL SECOND STAGE Cuong Miller MD 05/07/17 0747 06/13 0853 BREAST RECONSTRUCTION WITH IMPLANT PLACEMENT (Bilateral Breast) Events Date Time Event Comment 05/07/2017 0628 0747 An Start 0747 An Start Data 0750 An Induction 0751 Initial Antibiotic (Started) 0753 An LMA 0802 AN INCISION 0848 an stop data 0853 An Stop Electronically s igned by Nereida Saxena on May 07, 2017 8:53 AM Name Total midazolam 1mg/mL 2 mg fentaNYL 50 mcg/mL 50 mcg lidocaine 2% 60 mg propofol 10 mg/mL 250 mg propofol infusion (mcg/kg/min) 388.68 mg dexmedetomidine (PRECEDEX) 4 mcg/mL bolus 12 mcg rocuronium 10 mg/mL 10 mg clindamycin (CLEOCIN) infusion 900 mg 900 mg ePHEDrine 5 mg/mL 10 mg dexamethasone 4 mg/mL 4 mg ondansetron 2 mg/mL 4 mg LR 700 mL Agents Name NO HELIOX O2 N2O Air Exp Sevoflurane Exp Isoflurane Exp Desflurane Exp N2O Ins Sevoflurane Ins Isoflurane Ins Desflurane O2 Auxiliary Blood No blood administrations on file. Lines, Drains, and Airways Type Details Placement Removal Incision/Surgical Site 09/25/16; 1233; Left; 09/25/16 1233 by Sharmila Campos RN Incision/Surgical Site 09/25/16; 1233; 09/25/16 1233 by Right; Sharmila Campos RN Closed/Suction Drain 09/25/16; 1500; 1; 09/25/16 1500 by Left; Breast; Bulb; Celina Lock, [address]; compress RN bulb at 4:30pm Closed/Suction Drain 09/25/16; 1500; 2; 09/25/16 1500 by Right; Breast; Bulb; Tirevold, Celina, [address]; compress RN bulb at 4:30pm Incision/Surgical Site 05/07/17; 0839; Left; 05/07/17 0839 by Liyah Fox RN Incision/Surgical Site 05/07/17; 0839; 05/07/17 0839 by Right; Liyah Fox RN Peripheral IV 05/07/17; 0749; 20 G; 05/07/17 0749 by 05/07/17 1002 by Left; Lower forearm Nereida Saxena Laylin, Kimberley A, NATALIE ARRIAZA RN Retired Non-Surgical 05/07/17; 0753; Easy; 05/07/17 0753 by 04/27 08/13 0900 by Airway Intravenous; Nereida Saxena Laylin, Kimb erley A, (atruamatic placement COAL GASIFICATION TECHNICIANShannon ARRIAZA RN of LMA dentition intact, small mouth); 4; laryngeal mask airway; center of mouth; Anesthesiologist; S.B. documented in this encounter Social History Tobacco [...] encounter OR Notes Anesthesia Postprocedure Evaluation - Cuong Miller MD - 05/07/2017 9:25 AM CDT Patient: Clarice Arrington Procedure(s): BILATERAL SECOND STAGE BREAST RECONSTRUCTION WITH IMPLANT PLACEMENT - Wound Class: I-Clean Diagnosis:BREAST RECONSTRUCTION Diagnosis Additional Information: No value filed. Anesthesia Type: General Note: Anesthesia Post Evaluation Patient location during evaluation: PACU Patient participation: Able to fully participate in evaluation Level of consciousness: awake Pain management: adequate Airway patency: patent Cardiovascular status: acceptable Respiratory status: acceptable Hydration status: acceptable PONV: controlled Anesthetic complications: None Last vitals: Vitals: 05/07/17 0645 05/07/17 0851 05/07/17 0900 BP: 117/70 (!) 89/44 90/46 Pulse: 86 Resp: 16 18 16 Temp: 36.4 ??C (97.6 ??F) 36.1 ??C (96.9 ??F) SpO2: 97% 99% 98% Electronically Signed By: Cuong Miller MD May 07, 2017 9:25 AM Anesthesia Preprocedure Evaluation - Cuong Miller MD - 05/07/2017 6:28 AM CDT Anesthesia Evaluation . Pt has had prior anesthetic. Type: General ROS/MED HX ENT/Pulmonary: Neurologic: Cardiovascular: METS/Exercise Tolerance: Hematologic: Musculoskeletal: GI/Hepatic: Renal/Genitourinary: Endo: Psychiatric: Infectious Disease: Malignancy: (+) Malignancy History of Breast Other: Physical Exam Airway Dental Cardiovascular Pulmonary Other findings: Possible TMJ on right. States post-intub. Anesthesia Plan History & Physical Review History and physical reviewed and following examination; no interval change. ASA Status: 2 . Plan for General with Intravenous induction. Maintenance will be TIVA. PONV prophylaxis: Ondansetron (or other 5HT-3) and Dexamethasone or Solumedrol Propofol, Zofran, and decadron Postoperative Care Postoperative pain management: IV analgesics and Oral pain medications. Consents Anesthetic plan, risks, benefits and alternatives discussed with: Patient.. . documented in this encounter Miscellaneous Notes Anesthesia Care Transfer Note - Nreeida Saxena APRN CRNA - 05/07/2017 8:48 AM CDT Patient: Clarice Arrington Procedure(s): BILATERAL SECOND STAGE BREAST RECONSTRUCTION WITH IMPLANT PLACEMENT - Wound Class: I-Clean Diagnosis: BREAST RECONSTRUCTION Diagnosis Additional Information: No value filed. Anesthesia Type: General Note: Airway :LMA and Face Mask Patient transferred to:PACU Comments: 849: To par spontaneous ventilation.Handoff Report: Identifed the Patient, Identified the Reponsible Provider, Reviewed the pertinent medical history, Discussed the surgical course, Reviewed Intra-OP anesthesia mangement and issues during anesthesia, Set expectations for post-procedure period and Allowed opportunity for questions and acknowledgement of understanding Vitals: (Last set prior to Anesthesia Care Transfer) SOFIYA VITALS 05/07/2017 0818 - 05/07/2017 0848 05/07/2017 Pulse: 86 SpO2: 96 % Resp Rate (observed): 8 Electronically Signed By: Nereida Saxena APRN CRNA May 07, 2017 8:48 AM documented in this encounter Plan of Treatment Not on filedocumented as of this encounter Visit Diagnoses Not on filedocumented in this encounter Administered Medications Inactive Administered Medications - up to 3 most recent administrations Medication Order MAR Action Action Date Dose Rate Site clindamycin (CLEOCIN) infusion 900 Given 05/07/2017 7:51 AM CDT 900 mg mg Routine, 900 mg, Intravenous, PRE-OP/PRE-PROCEDURE, Starting on Fri05/07/17 at 0642, For 1 dose, Give first dose within 1 hour PRIOR to incision., Indications: Perioperative Pharmacoprophylaxis, Pre-procedure dexamethasone (DECADRON) injection Given 05/07/2017 8:24 AM CDT 4 mg PRN, Administer over 1-4 Minutes, Starting on Fri05/07/17 at 0824, Anesthesia Intra-op dexmedetomidine (PRECEDEX) 4 mcg/mL bolu s Bolus 05/07/2017 7:56 AM CDT 4 mcg 200 mcg, CONTINUOUS PRN, Starting on Fri05/07/17 at 0754, Anesthesia Intra-op Bolus 05/07/2017 7:55 AM CDT 4 mcg New Bag 05/07/2017 7:54 AM CDT 4 mcg ePHEDrine injection Given 05/07/2017 8:39 AM CDT 5 mg PRN, Starting on Fri05/07/17 at 0815, Anesthesia Intra-op Given 05/07/2017 8:15 AM CDT 5 mg fentaNYL (PF) (SUBLIMAZE) injection Given 05/07/2017 7:49 AM CDT 50 mcg PRN, moderate to severe pain, Starting on Fri05/07/17 at 0749, Anesthesia Intra-op lactated ringers infusion New Bag 05/07/2017 7:49 AM CDT Intravenous, CONTINUOUS PRN, Anesthesia Intra-op, Starting on Fri05/07/17 at 0749, Until Fri05/07/17 at 0853 lidocaine 2% Given 05/07/2017 7:50 AM CDT 60 mg Intravenous, PRN, Starting on Fri05/07/17 at 0750, Anesthesia Intra-op midazolam (VERSED) injection Given 05/07/2017 7:49 AM CDT 2 mg PRN, anxiety, Starting on Fri05/07/17 at 0749, Anesthesia Intra-op ondansetron (ZOFRAN) injection Given 05/07/2017 8:35 AM CDT 4 mg PRN, nausea, vomiting, Administer over 2-5 Minutes, Starting on Fri05/07/17 at 0835, Anesthesia Intra-op propofol (DIPRIVAN) infusion Rate/Dose 05/07/2017 8:27 75 mcg/kg/min 28.4 mL/hr Intravenous, CONTINUOUS PRN, Change AM CDT Starting on Fri05/07/17 at 0750, Anesthesia Intra-op Rate/Dose Change 05/07/2017 8:14 AM CDT 120 mcg/kg/min 45.5 mL/hr Rate/Dose Change 05/07/2017 8:03 AM CDT 140 mcg/kg/min 53.1 mL/hr propofol (DIPRIVAN) injection 10 mg/mL v ial Given 05/07/2017 7:52 AM CDT 50 mg PRN, Starting on Fri05/07/17 at 0750, Anesthesia Intra-op Given 05/07/2017 7:50 AM CDT 200 mg rocuronium (ZEMURON) injection Given 05/07/2017 8:01 AM CDT 10 mg PRN, Starting on Fri05/07/17 at 0801, Anesthesia Intra-op documented in this encounter Care Teams Control Room Helper Relationship Specialty Start Date End Date Richard Montalvo PCP - General Family Practice 09/25/16 03/05/[address] [address] documented as of this encounter
--- OUTSIDE RECORDS SUMMARY | 2022-03-13 15:43 | XMS_ITS | Encounter Summary ---
:1980 Author Organization [facility] Address [address] [place] [address]. [place] [address] Care Team Providers Name Role Phone Richard Montalvo Primary Care Provider Reason for Visit Auth/Cert Specialty Diagnoses / Procedures Referred By Contact Refer red To Contact Surgery Diagnoses RIGHT BREAST CANCER Sh Periop Services Procedures MASTECTOMY, NIPPLE SPARING BIOPSY NODE SENTINEL DISSECT LYMPH NODE AXILLA INSERT TISSUE GENERATOR MECHANIC BREAST BILATERAL [address], [address] [place] [address] Phone: Referral ID Status Reason Start Date Expiration Date Visits Requ ested Visits Authorized [id number] 1 1 Encounter Details Date Type Department Care Team Description 09/25/2016 Anesthesia Event [facility] Magdy Betts [place] [facility] [place] GRIFFIN [address], [address] [place] [address] ANESTHESIOLOGY [facility] [phone] [address] [phone] [place] [id number] (Wo rk) Anesthesia Record Procedure Summary Procedure Name Responsible Anesthesia Start Anesthesia Stop Time Anesthesiologist Time BILATERAL NIPPLE Magdy Betts MD 09/25/16 1140 7 1613 SPARING MASTECTOMY, RIGHT BREAST SENTINEL NODE BIOPSY, PORT REMOVAL (NAVDEEP), BILATERAL TISSUE EXPANDERS (BRAYDEN) (Bilateral Breast) Events Date Time Event Comment 09/25/2016 1041 1140 An Start 1140 An Start Data 1144 MD Present 1146 An Induction 1148 An Intubation 1148 AN START SEVO 1150 MD Present 1207 AN INCISION 1346 MD Present 1454 Quick Note Beginning bilate ral tissue expanders 1510 MD Present 1543 AN END SEVO 1550 MD Present 1604 AN Extubation 1605 an stop data 1613 An Stop Electronically s igned by Ishan Vuong on September 25, 2016 4:13 PM Name Total dexamethasone 4mg/mL 4 mg fentaNYL (SUBLIMAZE) injection 350 mcg glycopyrrolate 0.2mg/mL 0.6 mg lidocaine 2% 40 mg midazolam 1mg/mL 2 mg neostigmine 1mg/mL 4 mg phenylephrine (MERCEDES-SYNEPHRINE) injection 1 mg 2,000 mc g ondansetron 2mg/mL 4 mg propofol (DIPRIVAN) injection 10 mg/mL vial 200 mg propofol infusion (mcg/kg/min) 1,085.97 mg rocuronium 10mg/mL 50 mg vecuronium 1mg/mL 11 mg clindamycin (CLEOCIN) infusion 900 mg 900 mg HYDROmorphone 1 mg/mL 1 mg lactated ringers infusion 3,200 mL Agents Name NO HELIOX O2 N2O Air Exp Sevoflurane Exp Isoflurane Exp Desflurane Exp N2O Ins Sevoflurane Ins Isoflurane Ins Desflurane O2 Auxiliary Blood No blood administrations on file. Lines, Drains, and Airways Type Details Placement Removal Incision/Surgical Site 09/25/16; 1233; Left; 09/25/16 1233 by Sharmila Campos RN Incision/Surgical Site 09/25/16; 1233; Right; 09/25/16 1233 by Sharmila Campos RN Closed/Suction Drain 09/25/16; 1500; 1; 09/25/16 1500 by Left; Breast; Bulb; 15 Celina Lock, Andorran; compress bulb RN at 4:30pm Closed/Suction Drain 09/25/16; 1500; 2; 09/25/16 1500 by Right; Breast; Bulb; Celina Lock, 15 [place]ran; compress RN bulb at 4:30pm Peripheral IV 09/25/16; 1138; 18 G; 09/25/16 1138 by 09/26/16 1445 by Left; Hand; Julius Ortega Schoenecker, Sharon Chlorhexidine; RN J Injectable; Tolerated well RETIRED ETT 09/25/16; 1148; Mask 09/25/16 1148 by 09/25/16 1 604 by Ventilation: Easy with Ishan Vuong, Ishan Lynn oral airway; Ease of LEAD RELAY TESTER LEATHER STAKER R, LEAD RELAY TESTER CRN A Intubation: Easy; Airway Size: 7; Cuffed; Oral; Blade Type: Gould; Blade Size: 3; Place by: [facility] [employer] [facility]; Insertion Attempts: 1; Secured at (cm)to lip: 22 cm; Breath Sounds: Equal, clear and bilateral; End Tidal CO2: Present; Dentition: Intact; Grade View of Cords: 1 Urethral Catheter 09/25/16; 1200; No; 09/25/16 1200 by 09/25/16 1550 by Anesthesia; 16 fr Sharmila Meza RN Tirevold, D anielle, RN documented in this encounter Social History Tobacco [...] encounter OR Notes Anesthesia Postprocedure Evaluation - Magdy Betts MD - 09/25/2016 4:44 PM CST Patient: Clarice Arrington Procedure(s): BILATERAL NIPPLE SPARING MASTECTOMY, RIGHT BREAST SENTINEL NODE BIOPSY, PORT REMOVAL (NAVDEEP), BILATERAL TISSUE EXPANDERS (BRAYDEN) - Wound Class: I-Clean - Wound Class: I-Clean - Wound Class: I-Clean - Wound Class: I-Clean Diagnosis:RIGHT BREAST CANCER Diagnosis Additional Information: No value filed. Anesthesia Type: General, ETT Note: Anesthesia Post Evaluation Patient location during evaluation: PACU Patient participation: Able to fully participate in evaluation Level of consciousness: awake Pain management: adequate Airway patency: patent Cardiovascular status: acceptable Respiratory status: acceptable Hydration status: acceptable PONV: controlled Anesthetic complications: None Last vitals: Vitals: 09/25/16 1610 09/25/16 1620 09/25/16 1630 BP: 113/70 117/68 115/76 Pulse: Resp: 18 12 19 Temp: SpO2: 100% 100% 100% Electronically Signed By: Magdy Betts MD September 25, 2016 4:44 PM D REVIEWER Anesthesia Preprocedure Evaluation - Magdy Betts MD - 09/25/2016 9:31 AM CST Anesthesia Evaluation . Pt has had prior anesthetic. No history of anesthetic complications ROS/MED HX ENT/Pulmonary: (+)Intermittent asthma (only exercise induced) , . . (-) sleep apnea Neurologic: Cardiovascular: METS/Exercise Tolerance: Hematologic: Musculoskeletal: GI/Hepatic: (-) GERD Renal/Genitourinary: Endo: Psychiatric: Infectious Disease: Malignancy: (+) Malignancy History of Breast Breast CA Active status post. Other: Physical Exam Normal systems: cardiovascular, pulmonary and dental Airway Mallampati: III TM distance: >3 FB Neck ROM: full Comment: Very small mouth opening Dental Cardiovascular Pulmonary Anesthesia Plan History & Physical Review History and physical reviewed and following examination; no interval change. ASA Status: 3 . NPO Status: > 8 hours Plan for General and ETT with Intravenous induction. Maintenance will be Balanced. PONV prophylaxis: Ondansetron (or other 5HT-3) Propofol gtt and zofran for PONV prophylaxis Gould for intubation given small mouth opening. Postoperative Care Postoperative pain management: IV analgesics. Consents Anesthetic plan, risks, benefits and alternatives discussed with: Patient.. . D REVIEWER documented in this encounter Miscellaneous Notes Anesthesia Care Transfer Note - Ishan Vuong APRN CRNA - 09/25/2016 4:13 PM CST Patient: Clarice Nury Procedure(s): BILATERAL NIPPLE SPARING MASTECTOMY, RIGHT BREAST SENTINEL NODE BIOPSY, PORT REMOVAL (NAVDEEP), BILATERAL TISSUE EXPANDERS (BRAYDEN) - Wound Class: I-Clean - Wound Class: I-Clean - Wound Class: I-Clean - Wound Class: I-Clean Diagnosis: RIGHT BREAST CANCER Diagnosis Additional Information: No value filed. Anesthesia Type: General, ETT Note: Airway :Face Mask Patient transferred to:PACU Comments: Patient spont ventilating. Adequate TV's. Opening eyes to voice. ETT suctioned and removedwithout issues. To PACU with O2. Vitals stable. Report given to RN. Vitals: (Last set prior to Anesthesia Care Transfer) LEATHER STAKER VITALS 09/25/2016 1535 - 09/25/2016 1613 09/25/2016 Pulse: 103 SpO2: 100 % Resp Rate (observed): 15 Electronically Signed By: Ishan Vuong APRN CRNA September 25, 2016 4:13 PM D REVIEWER documented in this encounter Plan of Treatment Not on filedocumented as of this encounter Visit Diagnoses Not on filedocumented in this encounter Administered Medications Inactive Administered Medications - up to 3 most recent administrations Medication Order MAR Action Action Date Dose Rate Site clindamycin (CLEOCIN) infusion Given 09/25/2016 11:56 AM FIELD REVIEWER 900 mg 900 mg Routine, 900 mg, Intravenous, PRE-OP/PRE-PROCEDURE, Starting on Fri09/25/16 at 1033, For 1 dose, Give first dose within 1 hour PRIOR to incision., Indications: Perioperative Pharmacoprophylaxis, Pre-procedure dexamethasone (DECADRON) injection Given 09/25/2016 11:56 AM FIELD REVIEWER 4 mg PRN, Administer over 1-4 Minutes, Starting on Fri09/25/16 at 1156, Anesthesia Intra-op fentaNYL Citrate (PF) (SUBLIMAZE) inject ion Given 09/25/2016 2:01 PM FIELD REVIEWER 100 mcg PRN, moderate to severe pain, Starting on Fri09/25/16 at 1148, Anesthesia Intra-op Given 09/25/2016 12:06 PM FIELD REVIEWER 150 mcg Given 09/25/2016 11:48 AM FIELD REVIEWER 100 mcg glycopyrrolate (ROBINUL) injection Given 09/25/2016 3:48 PM FIELD REVIEWER 0.6 mg PRN, Starting on Fri09/25/16 at 1548, Anesthesia Intra-op HYDROmorphone (DILAUDID) injection Given 09/25/2016 1:01 PM FIELD REVIEWER 0.5 mg PRN, moderate to severe pain, Starting on Fri09/25/16 at 1251, Anesthesia Intra-op Given 09/25/2016 12:51 PM FIELD REVIEWER 0.5 mg lactated ringers infusion New Bag 09/25/2016 3:42 PM FIELD REVIEWER at 25 mL/hr, Intravenous, CONTINUOUS, IF patient NOT on dialysis., Pre-procedure, Starting on Fri09/25/16 at 1045, Until Fri09/25/16 at 1607 New Bag 09/25/2016 1:25 PM FIELD REVIEWER New Bag 09/25/2016 12:31 PM FIELD REVIEWER lidocaine injection 2% (MDV) Given 09/25/2016 11:48 AM FIELD REVIEWER 40 mg PRN, Starting on Fri09/25/16 at 1148, Anesthesia Intra-op midazolam (VERSED) injection Given 09/25/2016 11:40 AM FIELD REVIEWER 2 mg PRN, anxiety, Starting on Fri09/25/16 at 1140, Anesthesia Intra-op neostigmine (PROSTIGMINE) injection Given 09/25/2016 3:48 PM FIELD REVIEWER 4 mg Intravenous, PRN, Starting on Fri09/25/16 at 1548, Anesthesia Intra-op ondansetron (ZOFRAN) injection Given 09/25/2016 3:27 PM FIELD REVIEWER 4 mg PRN, nausea, vomiting, Administer over 2-5 Minutes, Starting on Fri09/25/16 at 1527, Anesthesia Intra-op phenylephrine (MERCEDES-SYNEPHRINE) injection 1 Bolus 09/25/2016 3:47 PM FIELD REVIEWER 100 mcg mg 1 mg, CONTINUOUS PRN, Starting on Fri09/25/16 at 1209, Anesthesia Intra-op Bolus 09/25/2016 3:38 PM FIELD REVIEWER 200 mcg Bolus 09/25/2016 3:30 PM FIELD REVIEWER 100 mcg propofol (DIPRIVAN) infusion New Bag 09/25/2016 1:58 PM 50 mcg/kg/min 20.5 mL/hr Intravenous, CONTINUOUS PRN, FIELD REVIEWER Starting on Fri09/25/16 at 1152, Anesthesia Intra-op New Bag 09/25/2016 11:52 AM FIELD REVIEWER 100 mcg/kg/min 41 mL/hr propofol (DIPRIVAN) injection 10 mg/mL v ial Given 09/25/2016 11:46 AM FIELD REVIEWER 200 mg PRN, Starting on Fri09/25/16 at 1146, Anesthesia Intra-op rocuronium (ZEMURON) injection Given 09/25/2016 11:48 AM FIELD REVIEWER 50 mg PRN, Starting on Fri09/25/16 at 1148, Anesthesia Intra-op vecuronium (NORCURON) injection Given 09/25/2016 2:48 PM FIELD REVIEWER 1 mg PRN, Starting on Fri09/25/16 at 1233, Anesthesia Intra-op Given 09/25/2016 2:24 PM FIELD REVIEWER 2 mg Given 09/25/2016 2:03 PM FIELD REVIEWER 2 mg documented in this encounter Care Teams Supervisor Hospitality House Relationship Specialty Start Date End Date Richard Montalvo PCP - General Family Practice 09/25/16 03/05/[address] [address] documented as of this encounter
--- OUTSIDE RECORDS SUMMARY | 2022-03-13 15:43 | XMS_ITS | Clinical Summary ---
:1980 Author Organization [facility] Address [address] [place] [address] Care Team Providers Name Role Phone Unavailable Primary Care Provider Unavailable Source Comments Patient records contain information from all sites at [facility]. For routine questions regarding patient records, call [phone] during business hours, M-F 8:00 AM - 5:00 PM Central Time. Record requests for emergency care only can be directed to [phone] at any time.[facility] Allergies No known active allergies Medications Medication Sig Dispensed Refills Start Date End Date Status albuterol 90 Inhale 2 puffs 0 11/18/2014 A ctive mcg/actuation inhaler every 6 (six) hours as needed. Active Problems Problem Noted Date Atrophy Vagina Due To Estrogen Deficiency 04/13/2018 Malignant Neoplasm Of Breast Female Right 10/20/2016 Overview: Ca Breast Female R Malignant Neoplasm Of Breast Lower Inner Quadrant Fema le Right 05/13/2016 Social History Tobacco Use Types Packs/Day Years [...] Mass Index 25.58 10/10/2020 1:40 PM CDT Plan of Treatment Health Maintenance Due Date Last Done Comments Fasting Lipid Panel 1980 HIV Screening 1980 Hepatitis C Screening 1980 DTaP,Tdap,and Td Vaccines 09/26/2019 09/25/2009 (2 - Td or Tdap) Cervical Cancer Screening 12/27/2019 12/26/2016 COVID-19 Vaccine (3 - 01/25/2021 08/28/2020, 08/11/2020 Booster for Pfizer series) Depression Screening 07/28/2021 (Annual PHQ-2) Influenza Vaccine (#1) 2022 04/13/2021, 04/27/2019, 06/04/2017, Additional history exists Hepatitis B Vaccines Completed 03/26/2019, 04/03/2008, 10/02/2007 Pneumococcal vaccine (0-64 Aged Out No lo nger eligible years) based on patient 's age to complete this topic Medical Devices Implanted Type Area Sports Announcer Device Shelf Model / Identifier Expiration Serial / Date Lot Conversions - Default Historical Implant Device Gynecologic Implanted: 05/07/2017 (Quantity not on file) Other Description: Device Status Text - Cardiovascular Specialist Ot her. both breast. Insurance Payer Benefit Plan / Subscriber ID Effective Phone Address T e Group Dates PREFERREDONE PREFERREDONE [id number] 2019-Pre [phone] PPO ADMINISTRATIVE ADMINISTRATIVE sent [phone] SERVICES SERVICES [facility] [phone] [place] (Home) [facility] [address]
--- OUTSIDE RECORDS SUMMARY | 2022-03-13 15:43 | XMS_ITS | Encounter Summary ---
:1980 Author Organization [facility] Address [address] [place] [address] Care Team Providers Name Role Phone Richard Montalvo Primary Care Provider Reason for Visit (Routine) - Closed Specialty Diagnoses / Procedures Referred By Contact Refer red To Contact Radiology / Radiology. Diagnoses no breast implants , sb Ivana Sh Nuclear Medicine Procedures NM SENTINAL NODE INJ [address] [facility] [address] Phone: Referral ID Status Reason Start Date Expiration Date Visits Requ ested Visits Authorized [id number] Closed 09/03/2016 09/03/2017 1 1 Encounter Details Date Type Department Care Team Description 09/25/2016 Hospital Encounter [facility] Spencer Blunt Ma neoplasm [facility] MD See of right breast (H) [address] [facility] [address] [address] [facility] [id number] Social History Tobacco Use Types Packs/Day Years [...] severe pain documented as of this encounter Plan of Treatment Not on filedocumented as of this encounter Procedures Procedure Name Priority Date/Time Associated Comments Diagnosis NM LYMPHOSCINTIGRAPHY Routine 09/25/2016 11:29 Malignant Re sults for this INJECTION ONLY AM EDITOR INDEX neoplasm of right procedur e are in breast (H) the results section. documented in this encounter Results NM Lymphoscintigraphy Injection only (09/25/2016 11:29 AM EDITOR INDEX) Anatomical Region Laterality Modality Breast Nuclear Medicine Specimen (Source) Anatomical Location Collection Method / Collectio n Time Received Time / Laterality Volume Narrative 09/25/2016 1:43 PM EDITOR INDEX RADIONUCLIDE SENTINEL NODE INJECTION, RIGHT BREAST - September 25, 2016 11:29 AM This report documents the injection of . 5mci TC Lymphoseek in RT Breast @ 1122am by the biochemistry technologist. No reported complications. No imaging was performed. JLOLY CREWS MD Procedure Note Jolly Crews MD - 09/25/2016F ormatting of this note might be different from the original. RADIONUCLIDE SENTINEL NODE INJECTION, RI GHT BREAST - September 25, 2016 11:29 AM This report documents the injection of . 5mci TC Lymphoseek in RT Breast @ 1122am by the biochemistry technologist. No reported complications. No imaging was performed. JOLLY CREWS MD Spencer Blunt MD [facility] [place] ORDERABLES documented in this encounter Visit Diagnoses Diagnosis Malignant neoplasm of right breast (H) Malignant neoplasm of breast (female), u nspecified site documented in this encounter Administered Medications Inactive Administered Medications - up to 3 most recent administrations Medication Order MAR Action Action Date Dose Rate Site technetium tilmanocept Given 09/25/2016 11:22 AM 0.5 millicuries Tc99m (LYMPHOSEEK) EDITOR INDEX radioisotope injection 0.5 millicurie 0.5 millicurie, Subcutaneous, ONCE, On Fri09/25/16 at 1145, For 1 dose, Supplied by, and administered by Nuclear Medicine. *HW* documented in this encounter Care Teams Hosting Engineer Relationship Specialty Start Date End Date Richard Montalvo PCP - General Family Practice 09/25/16 03/05/18 [facility] [address] [place] [address] documented as of this encounter
--- OUTSIDE RECORDS SUMMARY | 2022-03-13 15:43 | XMS_ITS | Encounter Summary ---
:1980 Author Organization [facility] Address [address] [place] [address] Care Team Providers Name Role Phone Unavailable Primary Care Provider Unavailable Encounter Details Date Type Department Care Team Description 04/13/2018 Orders Only Department of Oncology Sena Patricio, At rophy Vagina Due To in Tobias Pena M.D. Estrogen Deficiency [place] [address] (Primary Dx) [address] [place] [phone] Social History Tobacco Use Types Packs/Day Years Used Date Smoking Tobacco: Never Sex Assigned at Date Recorded Not on file documented as of this encounter Plan of Treatment Not on filedocumented as of this encounter Visit Diagnoses Diagnosis Atrophy Vagina Due To Estrogen Deficienc y - Primary documented in this encounter
--- OUTSIDE RECORDS SUMMARY | 2022-03-13 15:43 | XMS_ITS | Encounter Summary ---
:1980 Author Organization [facility] Address [address] [place] [address]. [place] [address] Care Team Providers Name Role Phone Niranjan Borrero MD Primary Care Provider Reason for Visit Reason Comments RECHECK Right breast CA; Discuss rena lorri Encounter Details Date Type Department Care Team Description [facility] lower[facility]inner quadrant of right female breast (H) (Primary Dx); Surgery Clinic [place] Cui MD BRCA1 positive [address] [place] [address] [place] [address] [phone] Social History Tobacco Use Types Packs/Day Years Used Date Never Smoker Alcohol Use Standard Drinks/Week Comments Not Asked 0 (1 standard drink = 0.6 oz pure alcoho l) Sex Assigned at Date Recorded Not on file documented as of this encounter Patient Instructions Patient InstructionsIvana Simpson - 08/22/2016 2:13 PM CST You are scheduled with Dr. Lore Traore at [facility] on 08/26/16 at 12:45pm. ICAL APPLICATIONS MANAGER documented in this encounter Progress Notes Spnecer Blunt MD - 08/26/2016 4:39 PM CST Surgery Consultation, [facility] EVELYN Blunt MD Clarice Arrington Date of : 1980 Age: [age] year old PCP: Niranjan Borrero [phone] Chief Complaint: Locally advanced right breast cancer, triple negative, BRCA1 positive Pt was seen in consultation from Niranjan Borrero. History of Present Illness: Clarice Arrington is a 36 year old female who presented with a locally advancedtriple negative breast cancer on the right. Recommendation was made for neoadjuvant chemotherapy which she is near completion. She has tolerated treatment well and has had a near complete clinical response. Patient is BRCA1 positive. Prior to undergoing chemotherapy she was considering bilateral mastectomy. She is also considered removal of her ovaries, but she has had no children. She is here for further discussion. PMH: Clarice Arrington has no past medical history on file. PSH: Clarice Arrington has past surgical history that includes Breast surgery. Home medications and allergies reviewed. Social History: Clarice Arrington reports that she has never smoked. She does not have any smokeless tobacco history on file. Family History: Clarice Arrington family history is not on file. ROS: The 10 point Review of Systems is negative other than noted in the HPI. Minimal nausea, mild weight loss. No fevers or chills. No night sweats. Physical Exam: There were no vitals taken for this visit. 0 lbs 0 oz Pleasant young healthy female in no distress. Patient has a pleasant affect and communicates well. Pupils equal round and reactive to light. No cervical lymphadenopathy or thyromegaly. Lung black clear, breathing comfortably. Heart normal sinus rhythm. No murmurs rubs or gallops. Bilateral breast exam performed. Small to moderate breasts bilaterally. Dense breast tissue appropriate for age. No palpable masses. No skin changes. No palpable axillary lymphadenopathy. Skin warm, dry. No obvious rashes or lesions. All new lab and imaging data was reviewed. Assessment/plan: Healthy 36-year-old BRCA1 positive female with right breast malignancy. She has hada very good clinical response to neoadjuvant chemotherapy. Given her BRCA1 status, I would still favor bilateral mastectomy with reconstruction. She did have some concerns about that which is understand able given her age. I explained that a lumpectomy with radiation is not without its downsides and would likely mandate additional surgery in the future. Lumpectomy is certainly a consideration however and I did not strictly recommend against it. Overall, I feel she favors bilateral mastectomy with a nipple sparing approach. She was going to meet with plastic surgery to discuss incision placement.We will get her scheduled for surgery some point in the near future. This would be performed with right axillary sentinel node biopsy and possible axillary dissection. I think she can certainly wait on any additional gynecologic surgery until she has made more specific decisions regarding childbearing. Transvaginal ultrasound was recently performed and did not show any additional concerning lesions. Emmanuel Blunt M.D. [facility] [phone] Please route or send letter to: Primary Care Provider (PCP) and Referring Provider HPI ROS Physical Exam ICAL APPLICATIONS MANAGER documented in this encounter Plan of Treatment Not on filedocumented as of this encounter Visit Diagnoses Diagnosis Malignant neoplasm of lower-inner quadra nt of right female breast (H) - Primary Malignant neoplasm of lower-inner quadra nt of female breast BRCA1 positive Genetic susceptibility to malignant neop lasm of breast documented in this encounter Care Teams Prototype Model Maker Relationship Specialty Start Date End Date Niranjan Borrero MD PCP - General Surgery 06/18/16 09/24/16 documented as of this encounter
--- OUTSIDE RECORDS SUMMARY | 2022-03-13 15:43 | XMS_ITS | Encounter Summary ---
:1980 Author Organization [facility] Address [address] [place] [address] Care Team Providers Name Role Phone Unavailable Primary Care Provider Unavailable Encounter Details Date Type Department Care Team Description 10/13/2020 Clinical Communication Department of Oncology Pcp, Dariela parrish in [place], [facility] sota [address] [place] [phone] Social History Tobacco Use Types Packs/Day Years Used Date Smoking Tobacco: Never Smokeless Tobacco: Never Sex Assigned at Date Recorded Not on file documented as of this encounter Miscellaneous Notes Telephone Encounter - Flor Ceballos R.N. - 12/14/2020 8:07 AM CDT Message left asking patient to return call to discuss appointment requested by Dr. Patricio. Telephone Encounter - Flor Ceballos R.N. - 11/14/2020 9:39 AM CDT Please attempt to reach patient to schedule the appointment with Dr. Arnold. Thanks Telephone Encounter - Flor Ceballos R.N. - 10/13/2020 3:24 PM CDT Clarice returned call. Please schedule with Dr. Arnold in [place]. Thanks Telephone Encounter - Flor Ceballos R.N. - 10/13/2020 12:32 PM CDT Message left on voice mail number listed to return call to discuss scheduling an appointment with Dr. Arnold. Will await for a return call. Telephone Encounter - Nayan Leon - 10/13/2020 10:[address] Patricio placed an order for Obstetrics and Gynecology - Reproductive endocrinology and infertilityconsult (clinic) Dx: Atrophy Vagina Due To Estrogen Deficiency [N95.2] Malignant Neoplasm Of Breast Female Right (HCC) [C50.911] Dyspareunia Due To Physiological Condition Female [N94.19] Was this supposed to go to [place]? There is no notes so I am just wondering before I call patientfor the [place] location. documented in this encounter Plan of Treatment Not on filedocumented as of this encounter Visit Diagnoses Not on filedocumented in this encounter
--- OUTSIDE RECORDS SUMMARY | 2022-03-13 15:43 | XMS_ITS | Encounter Summary ---
:1980 Author Organization [facility] Address [address] [place] [id number] Care Team Providers Name Role Phone Niranjan Borrero MD Primary Care Provider Reason for Visit Reason Onset Date Comments Patient Request 09/16/2016 Encounter Details Date Type Department Care Team Description 09/16/2016 Telephone [facility] Surgery Spencer Blunt, Patient Request Clinic [facility] GRIFFIN [address] [place] [address] [place] [address] [phone] Social History Tobacco Use Types Packs/Day Years Used Date Never Smoker Alcohol Use Standard Drinks/Week Comments Not Asked 0 (1 standard drink = 0.6 oz pure alcoho l) Sex Assigned at Date Recorded Not on file documented as of this encounter Miscellaneous Notes Telephone Encounter - Celena Herrera - 09/16/2016 2:27 PM CST Attempted to call patient, left with call back ph. # for patient to return call to clinic if needed. Celena Herrera DREDGE OR BARGE SHORE HAND NO CASHIER MANAGER Telephone Encounter - Denise Pardo - 09/16/2016 11:29 AM CST Name of caller: Patient Reason for Call: Questions regarding up coming surgery Surgeon: Dr. Blunt Recent Surgery: Surgery is up coming on 09/25 If yes, when & what type: BILATERAL NIPPLE SPARING MASTECTOMY WITH RIGHT AXILLARY SENTINEL NODE BIOPSY.09/25/16 Best phone number to reach pt at is: [phone] Ok to leave a message with medical info? Yes. Pharmacy preferred (if calling for a refill): na NO CASHIER MANAGER documented in this encounter Plan of Treatment Not on filedocumented as of this encounter Visit Diagnoses Not on filedocumented in this encounter Care Teams Manager Social Responsibility Relationship Specialty Start Date End Date Niranjan Borrero MD PCP - General Surgery 06/18/16 09/24/16 documented as of this encounter
--- OUTSIDE RECORDS SUMMARY | 2022-03-13 15:43 | XMS_ITS | Encounter Summary ---
:1980 Author Organization [facility] Address [address] [place] [address]. [place] [address] Care Team Providers Name Role Phone Richard Montalvo Primary Care Provider Reason for Visit Auth/Cert Specialty Diagnoses / Procedures Referred By Contact Refer red To Contact Surgery Diagnoses RIGHT BREAST CANCER Sh Periop Services Procedures MASTECTOMY, NIPPLE SPARING BIOPSY NODE SENTINEL DISSECT LYMPH NODE AXILLA INSERT TISSUE STAVE HEWER BREAST BILATERAL [address] [place] [phone] Phone: Referral ID Status Reason Start Date Expiration Date Visits Requ ested Visits Authorized [id number] 1 1 Encounter Details Date Type Department Care Team Description 09/25/2016 - [facility] Padmini Blunt MD [address] [place] [id number] Malignant neoplasm 09/26/2016 Encounter Margarita Traore, MD [facility] [address] [place] [id number] of lower-inner Intermediate Care quadrant of right [address] female breast (H) [place] [address] (Primary Dx) [phone] Social History Tobacco Use Types Packs/Day Years [...] Sign Reading Time Taken Comments Blood Pressure 114/66 09/26/2016 3:51 PM SHIP CLEANER Pulse 79 09/26/2016 3:51 PM SHIP CLEANER Temperature 36.9 ??C (98.5 ??F) 09/26/2016 3:51 PM SHIP CLEANER Respiratory Rate 16 09/26/2016 3:51 PM SHIP CLEANER Oxygen Saturation 98% 09/26/2016 3:51 PM SHIP CLEANER Inhaled Oxygen Concentration - - Weight 68.3 kg (150 lb 9.2 oz) 09/25/2016 10:37 AM SHIP CLEANER Height 165.1 cm (5' 5) 09/25/2016 10:46 AM SHIP CLEANER Body Mass Index 25.06 09/25/2016 10:37 AM SHIP CLEANER documented in this encounter Discharge Instructions Discharge InstructionsKeren Agustin RN - 09/25/2016 3:36 PM CST Discharge Instructions following a Mastectomy [facility] 33 For pain [...] concerns. Follow up with surgeon as instructed. CLEANER documented in this encounter Medications at Time [...] already discussed the results with the patient. CLEANER Padmini Blunt MD - 09/26/2016 3:48 PM CST Surgery Pt looks good Flaps look healthy Questions answered. Home today, will danny with pathology Emmanuel Blunt MD General Surgery, Office [phone] CLEANER Lore Traore MD - 09/26/2016 12:35 PM CST Plastic Surgery Patient up walking and reports feeling pretty well. Robaxin working better than oxycodone for pain. PE: deferred A/P: May d/c later today. Scripts done. Lore Traore MD Plastic Surgery [facility] [phone] (office) CLEANER Tere Garnett - 09/25/2016 10:08 AM CST Admission medication history interview status for the 09/25/2016 admission is complete. See [facility] admission navigator for prior to admission medications Medication history source reliability:Good Medication history interview source(s):Patient Medication history resources (including written lists, pill bottles, clinic record):None Primary pharmacy.[facility] Additional medication history information not noted on [facility] med list :None Time spent in this activity: 30 minutes Prior to Admission medications Not on File CLEANER documented in this encounter Nursing Notes Angela Mosley RN - 09/25/2016 4:40 PM CST Bedside report received from Nora Alvarado. Continued care assumed. CLEANER documented in this encounter Miscellaneous Notes Plan of Care - Audelia Haque RN - 09/26/2016 3:44 PM CST Problem: Goal Outcome Summary Goal: Goal Outcome Summary Outcome: Improving VSS. Up independently. Diet advanced to regular, tolerated. Pain managed with oral Tylenol, Oxycodone and Robaxin. Bilateral BJORN drains. Surgical dressing CDI. CLEANER Op Note - Lore Traore MD - 09/26/2016 1:24 PM CST PREOPERATIVE DIAGNOSES: 1. Right breast cancer. 2. BRCA1. 3. 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 POSTOPERATIVE DIAGNOSES: 1. Right breast cancer. 2. BRCA1. 3. 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 PROCEDURES: 1. Placement of bilateral breast tissue expanders. 2. Use of Contour ADM on left side. SURGEON: Lore Traore MD TISSUE STAVE HEWER INFORMATION: 1. Allergan, right, Reference #133MX-13, Serial #[id number], 500 cc, filled with 50 cc of saline. 2. Allergan, left, Reference #133MX-13, Serial #[id number], 500 cc, filled with 50 cc of [...] was irrigated with Betadine solution. A tissue designer architect was made ready for insertion and placed in the pocket. The pectoralis muscle was reapproximated with interrupted 3-0 Monocryl suture. A 15 Djiboutian John-Lisa drain was placed. The skin incision [...] repaired with 3-0 PDS suture. A tissue designer architect was made ready for insertion and placed below the ADM and below the pectoralis muscle. The ADM was then secured to the cut edge of the pectoralis muscle using an interrupted 3-0 Monocryl suture. A 15 [place]ian John-Lisa drain was placed and secured with 3-0 nylon suture. The skin incision was closed with interrupted 3-0 Monocryl in the subcutaneous tissue followed by a running 4-0 subcuticular Monocryl suture. The nipples were positioned appropriately, and a Tegaderm dressing was applied. The chest area was then wrapped with a Kerlix roll followed by an Kolotn bandage. LORE TRAORE MD MT: [id number] Name: BHARTI ARRINGTON Account: [id number] : 1980 Procedure Date: 09/25/2016 Document: [id number] cc: Niranjan Borrero MD CLEANER Plan of Care - Rafi Higginbotham RN - 09/26/2016 7:01 AM CST Problem: Goal Outcome Summary Goal: Goal Outcome Summary Outcome: Improving Patient is alert and orientated X 4, up with stand by assist, vital signs stable, pain manage with oxycodone, bilateral BJORN in place. CLEANER Plan of Care - Keren Agustin RN [...] ~ 21:30. Relieved with zofran. Pleasant patient. CLEANER Brief Op Note - Kathy Carias PA-C - 09/25/2016 5:06 PM CST [facility] Brief Operative Note Pre-operative diagnosis: RIGHT BREAST CANCER Post-operative diagnosis breast cancer Procedure: Procedure(s): BILATERAL NIPPLE SPARING MASTECTOMY, RIGHT BREAST SENTINEL NODE BIOPSY, PORT REMOVAL (NAVDEEP), BILATERAL TISSUE EXPANDERS (BRAYDEN) Surgeon(s): Surgeon(s) and Role: Panel 1: * [...] AXILLARY SENTINEL LYMPH NODE Tissue Lymph Node, [place] SURGICAL PATHOLOGY EXAM Padmini Blunt MD 09/25/2016 2:33 PM E : RIGHT BREAST TISSUE Tissue Breast, Right SURGICAL PATHOLOGY EXAM Padmini Blunt MD 09/25/2016 2:38 PM Findings: Same as above Kathy Carias PA-C CLEANER Brief Op Note - Lore Traore MD - 09/25/2016 3:47 PM CST [facility] Brief Operative Note Pre-operative diagnosis: RIGHT [...] AXILLARY SENTINEL LYMPH NODE Tissue Lymph Node, [place] SURGICAL PATHOLOGY EXAM Padmini Blunt MD 09/25/2016 2:33 PM E : RIGHT BREAST TISSUE Tissue Breast, Right SURGICAL PATHOLOGY EXAM Padmini Blunt MD 09/25/2016 2:38 PM Findings: See op note. CLEANER Op Note - Padmini Blunt MD - 09/25/2016 3:30 PM CST General Surgery Operative Note PREOPERATIVE DIAGNOSIS: RIGHT BREAST CANCER, BRCA gene carrier POSTOPERATIVE DIAGNOSIS: same PROCEDURE: Right nipple sparing mastectomy, right sentinel lymph node biopsy, left prophylactic mastectomy REMOVE PORT VASCULAR ACCESS ANESTHESIA: General. PREOPERATIVE MEDICATIONS: clindamycin SURGEON: Padmini Blunt MD ONLINE CONTENT COORDINATOR: Kathy Carias PA-C. Principal Technical Writer was required owing to challenging exposure and [...] node biopsy onthe right. Padmini Blunt MD CLEANER documented in this encounter Plan of Treatment Not on filedocumented as of this encounter Procedures Procedure Name Priority Date/Time Associated Diagnosis Comme nts SURGICAL PATHOLOGY Routine 09/25/2016 1:28 PM Res ults for this EXAM SHIP CLEANER procedure are i n the results section. REMOVAL, VASCULAR 09/25/2016 11:40 AM breast cancer ACCESS PORT SHIP CLEANER Special Needs Left port-a-cath INSERTION, TISSUE STAVE HEWER, BREAST, 09/25/2016 11:40 A M SHIP CLEANER breast cancer BILATERAL Special Needs Left port-a-cath BIOPSY, LYMPH NODE, SENTINEL 09/25/2016 11:40 AM SHIP CLEANER b reast cancer Special Needs Left port-a-cath MASTECTOMY, NIPPLE SPARING 09/25/2016 11:40 AM SHIP CLEANER ricardo ast cancer Special Needs Left port-a-cath HEMOGLOBIN STAT 09/25/2016 10:51 AM SHIP CLEANER Resu lts for this procedure are in the resu lts section. HCG QUALITATIVE STAT 09/25/2016 10:51 AM SHIP CLEANER Results for this procedure are in the resu lts section. documented in this encounter Results Surgical pathology exam (09/25/2016 1:28 PM SHIP CLEANER) Component Value Ref Test Analysis Performed At [facility] Range Method Time Signature Copath Report Patient Name: BHARTI ARRINGTON MR#: [id number] Specimen #: [id number] Collected: 09/25/2016 Received: 09/25/2016 Reported: 09/27/2016 13:11 Ordering Phy(s): PADMINI BLUNT Additional Phy(s): LROE TRAORE For improved result formatting, select 'View Enhanced Report Format' under Linked Documents section. SPECIMEN(S): A: Mastectomy, right B: [place] lymph node, right axillary C: Mastectomy, left [...] ?Nipple-sparing mastectomy ? Lymph Node Sampling: ?? [place] lymph node(s) ? Specimen Laterality: ?? Right ? Tumor Site: Invasive Carcinoma: No residual tumor pre sent in the specimen (Complete Pathologic Response) Tumor ? Presence of Invasive Carcinoma: ?? No residual invasi ve carcinoma after presurgical (neoadjuvant) therapy ? Histologic Type of Invasive Carcinoma: ?? Other: (Per previous outside biopsy report, patient had invasive ductal carcinoma , Jessica grade 3/3 (score 8/9) Margins ? Invasive [...] Macrometastases: 0 ?Number with Micrometastases: 0 ? [place] Lymph Nodes Examined: 3 ? Method of Evaluation: ?? H&E, multiple levels Estrogen receptor-Negative on previous breast core biopsy sp ecimen ([id number]; [facility]) (0% of tumor nuclei stain ing) Progesterone receptor-Negative on previous breast core biops y specimen ([id number]; [facility]) (0% of tumor nuclei stain ing) Her [...] the remaining tissue is inked black. ??A customer retention representative section of the nipple bed is [...] sections are submitted. Cassette 1-frozen section Cassette 3-12-iulvwldy around indurated area just deep to ni pple Cassettes 11-inked deep margin Cassettes 41-98-fbbmdqhljrqkar section from each quadrant Cassettes 16-nipple bed [...] specimen is entirely submitted in one cassette. Hospitality Coordinator direct, per Dr. Alaniz. C. The specimen [...] definitive invas sen lesions are identified grossly. ??Skein Inspector sections are submit ger. Cassette 1-2-upper inner [...] than 5% o f the total volume. ??Skein Inspector sections are submitted in four flower ettes. [...] microscopic exam is performed. CPT Codes: A: 69797-FN8, 14202-JC B: 27648-PH8, 74107-GO C: 81262-OI3 D: 18062-VB5 E: 51335-MB3 TESTING LAB LOCATION: [address] ??[address] COLLECTION SITE: Client: [facility] Location: SHOR (S) Specimen (Source) Anatomical Collection Method Collection Time Re ceived Time Location / / Volume Laterality Tissue specimen LEFT BREAST 09/25/2016 1:28 PM (specimen) STRUCTURE / SHIP CLEANER Unknown Comment: *32693 JV Weight: 635 gm Power Port Present Tissue specimen (specimen) LEFT BREAST STRUCTURE / Unknown 09/25/2016 1:31 PM SHIP CLEANER Comment: *[id number] Tissue specimen (specimen) RIGHT BREAST STRUCTURE / 2:26 PM SHIP CLEANER Unknown Comment: WT 600 GM OR 40 *[id number] Tissue specimen (specimen) SPECIMEN FROM SENTINEL LYMPH 09/25/2016 2:33 PM SHIP CLEANER NODE / Unknown Comment: OR 40 *[id number] Tissue specimen (specimen) RIGHT BREAST STRUCTURE / 2:38 PM SHIP CLEANER Unknown Padmini LUCAS - NICKY LOPEZ Performing Organization Address City/State/ZIP Code Phon e Number [place] HCG qualitative (09/25/2016 10:51 AM SHIP CLEANER) Patholo gist Method Time Signature HCG Qualitative Negative NEG [place] Serum [facility] Specimen Anatomical Collection Method Collection Time Receive d Time (Source) Location / / Volume Laterality Blood specimen 09/25/2016 10:51 7 (specimen) AM SHIP CLEANER 10:55 AM SHIP CLEANER Magdy Betts MD LAB - BLOOD ORDERABLES Performing Organization Address City/State/ZIP Code Phon e Number [facility] [address] [place] [address] 95 [phone] [facility] [address] [place] [address], [place] [phone] Hemoglobin (09/25/2016 10:51 AM SHIP CLEANER) P athologist Signature Hemoglobin 12.8 11.7 - 15.7 [place] g/dL [facility] Specimen Anatomical Collection Method Collection Time Receive d Time (Source) Location / / Volume Laterality Blood specimen 09/25/2016 10:51 7 (specimen) AM SHIP CLEANER 10:55 AM SHIP CLEANER Magdy Betts MD LAB - BLOOD ORDERABLES Performing Organization Address City/State/ZIP Code Phon e Number [facility] [address] [place] [phone] [facility] [address] [place] [address], [place] [phone] documented in this encounter Visit Diagnoses Diagnosis Malignant neoplasm of lower-inner quadra nt of right female breast (H) - Primary Malignant neoplasm of lower-inner quadra nt of female breast Breast cancer (H) Malignant neoplasm of breast (female), u nspecified site 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 Acquired absence of breast and nipple documented in this encounter Administered Medications Inactive Administered Medications - up to 3 most recent administrations Medication Order MAR Action Action Date Dose Rate Site acetaminophen (TYLENOL) tablet Given 09/25/2016 11:15 AM SHIP CLEANER 1,0 00 mg 1,000 mg 1,000 mg, Oral, ONCE, On Fri09/25/16 at 1045, For 1 dose, Maximum acetaminophen dose from all sources = 75 mg/kg/day not to exceed 4 gram, Pre-procedure acetaminophen (TYLENOL) tablet 975 mg Given 09/26/2016 9:20 AM SHIP CLEANER 975 mg 975 mg, Oral, EVERY 8 HOURS, First dose on Fri09/25/16 at 2200, For 3 days, Do not use if patient has an active opioid/acetaminophen analgesic order for pain Maximum acetaminophen dose from all sources = 75 mg/kg/day not to exceed 4 grams/day., Post-procedure Given 09/25/2016 10:29 PM SHIP CLEANER 975 mg clindamycin (CLEOCIN) capsule 300 mg Routine, 300 mg, Oral, EVERY 8 HOURS, Fi rst dose (after last modification) on Maty 09/26/16 at 2000, Indications: Perioperative Pharmacopro phylaxis, Post-procedure clindamycin (CLEOCIN) infusion 600 New Bag 09/26/2016 12:14 PM SHIP CLEANER 600 mg 100 mL/hr mg Routine, 600 mg, Intravenous, EVERY 8 HOURS, First dose on Fri09/25/16 at 2000, Indications: Perioperative Pharmacoprophylaxis, Post-procedure New Bag 09/26/2016 3:29 AM SHIP CLEANER 600 mg 100 mL/hr New Bag 09/25/2016 8:54 PM SHIP CLEANER 600 mg 100 mL/hr fentaNYL Citrate (PF) (SUBLIMAZE) injection Given 09/25/2016 5:38 PM SHIP CLEANER 50 mcg 25-50 mcg 25-50 mcg, Intravenous, EVERY 2 MIN PRN, other, acute pain, Starting on Fri09/25/16 at 1643, MAX cumulative dose = 250 mcg. Use Fentanyl initially, as a short acting agent for acute pain control. If insufficient, or a longer acting agent is needed, begin Morphine or Hydromorphone if ordered., PACU Given 09/25/2016 5:24 PM SHIP CLEANER 25 mcg gabapentin (NEURONTIN) tablet 600 mg Given 09/25/2016 11:19 AM SHIP CLEANER 600 mg 600 mg, Oral, ONCE, On Fri09/25/16 at 1045, For 1 dose, Pre-procedure HYDROmorphone (PF) (DILAUDID) injection Given 09/25/2016 5:39 PM SHIP CLEANER 0.2 mg 0.3-0.5 mg 0.3-0.5 mg, Intravenous, [...] is reached), PACU Given 09/25/2016 5:24 PM SHIP CLEANER 0.3 mg lactated ringers infusion New Bag 09/25/2016 3:42 PM SHIP CLEANER at 25 mL/hr, Intravenous, CONTINUOUS, IF patient NOT on dialysis., Pre-procedure, Starting on Fri09/25/16 at 1045, Until Fri09/25/16 at 1607 New Bag 09/25/2016 1:25 PM SHIP CLEANER New Bag 09/25/2016 12:31 PM SHIP CLEANER lactated ringers infusion New Bag 09/26/2016 9:22 AM SHIP CLEANER 100 mL/hr at 100 mL/hr, Intravenous, CONTINUOUS, Saline lock IVF when po intake > 300 ml., Post-procedure, Starting on Fri09/25/16 at 1815, Until Maty 09/26/16 at 1237 New Bag 09/25/2016 10:29 PM SHIP CLEANER 100 mL/hr Rate/Dose Verify 09/25/2016 6:39 PM SHIP CLEANER 100 mL/hr methocarbamol (ROBAXIN) tablet 750 mg Given 09/26/2016 10:34 AM SHIP CLEANER 750 mg 750 mg, Oral, EVERY 6 HOURS PRN, muscle spasms, Starting on Fri09/25/16 at 1810, Post-procedure morphine (PF) injection 2-4 mg Given 09/25/2016 8:54 PM SHIP CLEANER 2 mg 2-4 mg, Intravenous, EVERY 2 HOURS PRN, severe pain, or patient unable to take PO, Starting on Fri09/25/16 at 1810, Hold while on CORPORATE PHYSICAL SECURITY SUPERVISOR., Post-procedure Given 09/25/2016 6:37 PM SHIP CLEANER 2 mg ondansetron (ZOFRAN) injection 4 mg Given 09/25/2016 6:57 PM SHIP CLEANER 4 mg 4 mg, Intravenous, EVERY 6 [...] tablet 10 mg Given 09/25/2016 11:18 AM SHIP CLEANER 10 mg 10 mg, Oral, ONCE, On Fri09/25/16 at 1045, For 1 dose, DO NOT CRUSH., Pre-procedure oxyCODONE (ROXICODONE) IR tablet 5-10 mg Given 09/26/2016 2:58 PM SHIP CLEANER 10 mg 5-10 mg, Oral, EVERY 3 HOURS PRN, moderate to severe pain, Starting on Fri09/25/16 at 1810, IF CrCl is UNKNOWN start at lowest end of dosing range. Hold while on CORPORATE PHYSICAL SECURITY SUPERVISOR or with regular IV opioid dosing., Post-procedure Given 09/26/2016 7:45 AM SHIP CLEANER 10 mg Given 09/26/2016 3:24 AM SHIP CLEANER 10 mg prochlorperazine (COMPAZINE) injection 5 -10 mg 5-10 [...] loose stools., Post-procedure Given 09/25/2016 8:54 PM SHIP CLEANER 1 tablet documented in this encounter Active and Recently Administered Medications Times are shown in SHIP CLEANER. Scheduled Medication Order 09/24/2016 09/25/2016 09/26/2016 acetaminophen (TYLENOL) tablet 1,000 mg (COMPLETED) 1115 (Given - Provider: Julius Ortega RN) 1,000 mg, Oral, ONCE, Fri09/25/16 at 1045 [...] mg (COMPLETED) 1156 (Given - Provider: Ishan Vuong APRN HEALTH MANAGER) 900 mg, Intravenous, PRE-OP/PRE-PROCEDUR E, Starting Fri09/25/16 at 1033, For 1 dose, Give first dose within 1 hour PRIOR to incision., Indications: Surgical Prophylaxis, Pre-procedure gabapentin (NEURONTIN) tablet 600 mg (COMPLETED) 1118 (Given - Provider: Julius Ortega RN) 600 mg, Oral, ONCE, Fri09/25/16 at 1045, For 1 dose, Pre-procedur e oxyCODONE (OxyCONTIN) 12 hr tablet 10 mg (COMPLETED) 111 (Given - Provider: Julius Ortega RN) 10 mg, Oral, ONCE, Fri09/25/16 at 1045, [...] David Haney)1542 (New Bag - Provider: Ishan R Hounshell, BARBER HEALTH MANAGER) at 25 mL/hr, Intravenous, CONTINUOUS, IF [...] 1 HOUR PRN, s ore throat, Starting Fri09/25/16 at 1810, For sore throat without fever., [...] (PF) (DILAUDID) injection 0.3-0.5 mg (CANCELED ) 172 (Given - Provider: Angela Mosley RN)173 (Given [...] used when administering multiple Central Nervous System (WAGE AND HOUR INVESTIGATOR) depressing meds within a short time frame., [...] unable to take PO, Hold while on CORPORATE PHYSICAL SECURITY SUPERVISOR., Post-procedure naloxone (NARCAN) injection 0.1-0.4 mg 0.1-0.4 [...] end of dosing range. Hold while on CORPORATE PHYSICAL SECURITY SUPERVISOR or with regular IV opioid dosing., Post-procedure [...] EVERY 6 HOURS PRN, nausea, vomiting, Starting 09/25/16 at 1810
This is Step 2 of nausea and vomiting management. If nausea not resolved in 15 minutes, give met oclopramide (REGLAN), if ordered (step 3 of nausea and vomiting management)
Post-procedure Or prochlorperazine (COMPAZINE) tablet 5-10 mgJump to med 5-10 mg, Oral, EVERY 6 HOURS PRN, nausea , vomiting, Starting 09/25/16 at 1810
This is Step 2 of nausea and vomiting management. If nausea not resolved in 15 minutes, give metoclopra mide (REGLAN), if ordered (step 3 of dimas sea and vomiting management)
Post-procedure documented in this encounter Care Teams Navy Material Inspector Relationship Specialty Start Date End Date Richard Montalvo PCP - General Family Practice 09/25/16 03/05/[address] [address] documented as of this encounter
--- OUTSIDE RECORDS SUMMARY | 2022-03-13 15:43 | XMS_ITS | Encounter Summary ---
:1980 Author Organization [place] Address [address] [place] [address]. [place] [address] Care Team Providers Name Role Phone Niranjan Borrero MD Primary Care Provider Reason for Referral Consultation - Closed Specialty Diagnoses / Procedures Referred By Contact Refer red To Contact Diagnoses Malignant neoplasm of lower-inner quadrant of right female breast (H) Spencer Blunt MD [address] [facility] [address] Referral ID Status Reason Start Date Expiration Date Visits Requ ested Visits Authorized [id number] Closed 06/19/2016 06/19/2017 1 1 DROPPER Reason for Visit Reason Comments Consult right breast ca Encounter Details Date Type Department Care Team Description [facility] lower-inner quadrant of right female breast (H) (Primary Dx); Surgical [facility] MD See BRCA1 positive [address] [facility] [address] [facility] [id number] Social History Tobacco Use Types Packs/Day Years Used Date Never Smoker Alcohol Use Standard Drinks/Week Comments Not Asked 0 (1 standard drink = 0.6 oz pure alcoho l) Sex Assigned at Date Recorded Not on file documented as of this encounter Last Filed Vital Signs Vital Sign Reading Time Taken Comments Blood Pressure 120/78 06/19/2016 1:11 PM HOG DROPPER Pulse 103 06/19/2016 1:11 PM HOG DROPPER Temperature - - Respiratory Rate - - Oxygen Saturation - - Inhaled Oxygen Concentration - - Weight 62.6 kg (138 lb) 06/19/2016 1:11 PM HOG DROPPER pt lisa cyr Height 165.1 cm (5' 5) 06/19/2016 1:11 PM HOG DROPPER pt lisa cyr Body Mass Index 22.96 06/19/2016 1:11 PM HOG DROPPER documented in this encounter Patient Instructions Patient InstructionsSthannahCristy paredes - 06/19/2016 3:19 PM CST Your appointment with Genetics is scheduled for 07/18/16 9:00 am DROPPER documented in this encounter Progress Notes Spencer Blunt MD - 06/19/2016 3:54 PM CST Surgery Consultation, [facility] Spencer Blunt MD Clarice Arrington Date of : 1980 Age: [age] year old PCP: Niranjan Borrero [phone] Chief Complaint: New diagnosis of right breast cancer History of Present Illness: Clarice Arrington is a 36 year old female who presented with a palpable mass inthe right breast. This also had some skin dimpling. This was further assessed with mammogram and ultrasound guided biopsy in February of this year. Diagnosis was invasive ductal carcinoma. This was grade3, triple negative. Patient has been undergoing cytotoxic chemotherapy since that time through a left venous port. His tolerated the chemotherapy well and has had a complete clinical response to the tumor. Imaging characteristics of the tumor suggested a 2-3-1/2 cm lesion in the right lower inner breast with some suggestion of chest wall involvement. No obvious clinically positive nodes. Although patient's family history is negative for breast cancer, genetic testing was performed and this confirmeda BRCA1 mutation which was also present in the mother. Sister tested negative. Patient has had a transvaginal ultrasound which was negative save for a small lesion on the left ovary suggestive of dermoid cyst. She is here for discussion of surgical options. PMH: Clarice Arrington has no past medical history on file. PSH: Clarice Arrington his had no previous surgeries save for her port placement and breast biopsy. Home medications and allergies reviewed. Social History: Clarice Arrington reports that she has never smoked. She does not have any smokeless tobacco history on file. Family History: Clarice Arrington family history is not on file. ROS: The 10 point Review of Systems is negative other than noted in the HPI. Physical Exam: Blood pressure 120/78, pulse 103, height 5' 5 (1.651 m), weight 138 lb (62.596 kg). 138 lbs 0 oz Thin healthy young female in no distress. Pupils equal round and reactive to light. No cervical lymphadenopathy or thyromegaly. Lung black clear, breathing comfortably. Heart normal sinus rhythm. No murmurs rubs or gallops. Bilateral breast exam performed. Moderate Breast size bilaterally with dense breasts appropriate forage. No skin changes or dimpling. Well-healed left chest wall port overlying breast tissue. No axillary lymphadenopathy. All new lab and imaging data was reviewed, including outside clinic notes, pathology reports, and imaging reports. Assessment/plan: Pleasant healthy 36-year-old female with triple-negative invasive ductal carcinoma in the right breast. She is also BRCA1 positive. She is in the middle of her chemotherapy and is doing well with an excellent clinical response. I feel she would be an excellent candidate for bilateral n ipple sparing mastectomy. Patient is very motivated to undergo this procedure through an inframammary incision which I think should be feasible. I will have further discussions with the patient's plastic surgeon. She is looking at having the procedure scheduled sometime in mid August, which would be3-4 weeks following completion of her chemotherapy. We have gotten her scheduled to meet with a genetic counselor for further discussions of her BRCA status. Following completion of her chemotherapy I also feel we should schedule an additional transvaginal ultrasound to look for any changes in her left ovarian lesion. If this appears to have changed significantly we may consider a coordinated surgery with DOCTOR OF RADIOLOGY. Emmanuel Blunt M.D. [facility] [phone] Please route or send letter to: Primary Care Provider (PCP) and Referring Provider HPI ROS Physical Exam DROPPER documented in this encounter Nursing Notes Teresa Rolon MA - 06/19/2016 2:28 PM CST Breast Patients BREAST PATIENTS (ALL) 1-Do you have any of the following symptoms? Lump(s) or Mass(es) 2-In which breast are you having the symptoms? right 3-Do you use hormones? No 4-Have you had a Mammogram? Yes Where: [facility] Date: 03/20/16 5-Have you ever had a breast cyst drained? No 6-Have you ever had a breast biopsy? Yes Side: right Date: 03/20/16 7-Have you ever had a Breast Cancer? No 8-Is there a history of Breast Cancer in your family? No 9-Have you ever had Ovarian Cancer? No 10-Is there a history of Ovarian Cancer in your family? No 11-Summarize your caffeine intake (i.e. coffee, tea, chocolate, soda etc.): rarely BREAST PATIENTS (FEMALE) 12-What age did your periods begin? 15 13-Date your last menstrual period began? 05/14/16 14-Number of full-term pregnancies: 0 15-Your age when your first child was born? N/A 16-Did you nurse your children? N/A 17-Are you now? No 18-Have you begun menopause? No 19-Have you had either ovary removed?No 20-Do you have breast implants? No DROPPER documented in this encounter Plan of Treatment Scheduled Referrals Name Type Priority Associated Diagnoses Order S [facility] GENETICS REFERRAL Referral Routine Malignant neoplasm of O rdered: 06/19/2016 lower-inner quadrant of righ t female breast (H) documented as of this encounter Visit Diagnoses Diagnosis Malignant neoplasm of lower-inner quadra nt of right female breast (H) - Primary Malignant neoplasm of lower-inner quadra nt of female breast BRCA1 positive Genetic susceptibility to malignant neop lasm of breast documented in this encounter Care Teams Gm Mobile Relationship Specialty Start Date End Date Niranjan Borrero MD PCP - General Surgery 06/18/16 09/24/16 documented as of this encounter
--- OUTSIDE RECORDS SUMMARY | 2022-03-13 15:44 | XMS_ITS | Clinical Summary ---
:1980 Author Organization [facility] Address [address] [place] [address] Care Team Providers Name Role Phone Non Pn, Clinician MD Primary Care Provider Unavailable Source Comments You are receiving this document as you are listed as the primary care provider,follow-up provider, or the patient has been referred to you for consultation.This is in compliance with the Medicare and Medicaid EHR Incentive Program,which states Providers who transition their patient to another setting of careor provider of care or refers their patient to another provider of care shouldprovide summarycare record for each transition of care or referral. [facility] Allergies No known active allergies Immunizations Name Administration Dates Next Due HepA-HepB ([place], 18+ yrs) 10/02/2007 Influenza IIV4 (Quadrivalent) 0.5mL (24014) 06/04/2017 TB Skin Test (PPD) 02/19/2011, 02/11/2011 TDAP (ADACEL) 09/25/2009 Social History Tobacco Use Types Packs/Day Years Used Date Smoking Tobacco: Never Sex Assigned at Date Recorded Not on file Plan of Treatment Health Maintenance Due Date Last Done Comments Cervical Cancer Screening Due 1980 Hep C Screening (Preventive 1980 Services) COVID-19 Vaccine (#1) 1980 HIV Screening (Preventive 1998 Services) Adult Preventive Visit 2000 HepA (2 of 3 - Hep A Twinrix risk 10/30/2007 10/02/2007 3-dose series) HepB (2) 10/30/2007 10/02/2007 DTaP/Tdap/Td (2 - Tdap) 09/26/2019 09/25/2009 Influenza (#1) 2022 06/04/2017 Zoster/Shingles (1 of 2) 2032 HPV Vaccine Aged Out No longer eligib le based on patient's age to complete this topic Hib Aged Out No longer eligib le based on patient's age to complete this topic IPV (Polio) Aged Out No longer eligib le based on patient's age to complete this topic MCV4 Aged Out No longer eligib le based on patient's age to complete this topic Pneumococcal Aged Out No longer eligib le based on patient's age to complete this topic Insurance Payer Benefit Plan / Subscriber ID Effective Dates Phone Addre ss Type Group BCBS [place]BS [place] [id number] 2007-Present [address] [address] [place] [address] (Home) [place] [address] Clarice Arrington Personal/Family Self 1980 [address] (Home) [place] [address] Care Teams Aircraft Cylinder Mechanic Relationship Specialty Start Date End Date Non Pn, Clinician, PCP - General 02/27/16 [place] [address]
--- OUTSIDE RECORDS SUMMARY | 2022-03-13 15:44 | XMS_ITS | Encounter Summary ---
:1980 Author Organization [facility] Address [address] [place] [address] Care Team Providers Name Role Phone Non Pn, Clinician Primary Care Provider Unavailable Encounter Details Date Type Department Care Team Description 06/04/2017 [facility]ization [facility] 39[facility] Need f or prophylactic [facility] vaccination and [address] [place] [address] Social History Tobacco Use Types Packs/Day Years Used Date Smoking Tobacco: Never Sex Assigned at Date Recorded Not on file documented as of this encounter Plan of Treatment Not on filedocumented as of this encounter Visit Diagnoses Diagnosis Need for prophylactic vaccination and in oculation against influenza documented in this encounter Care Teams Associate Data Scientist Relationship Specialty Start Date End Date Non Pn, Clinician, PCP - General 02/27/16 [place] [address] documented as of this encounter
--- OUTSIDE RECORDS SUMMARY | 2022-03-13 15:44 | XMS_ITS | Encounter Summary ---
:1980 Author Organization [facility] Address [address] [place] [address] Care Team Providers Name Role Phone Unavailable Primary Care Provider Unavailable Encounter Details Date Type Department Care Team Description 06/23/1990 Emergency [facility] Paula Anaya [address] [place] [address] Social History Tobacco Use Types Packs/Day Years Used Date Smoking Tobacco: Never Assessed Sex Assigned at Date Recorded Not on file documented as of this encounter Plan of Treatment Not on filedocumented as of this encounter Visit Diagnoses Not on filedocumented in this encounter
--- OUTSIDE RECORDS SUMMARY | 2022-03-13 15:44 | XMS_ITS | Encounter Summary ---
:1980 Author Organization [facility] Address [address] [place] [address] Care Team Providers Name Role Phone Non Pn, Clinician MD Primary Care Provider Unavailable Reason for Visit Reason Comments NAIL PROBLEM Encounter Details Date Type Department Care Team Description 02/27/2016 Initial Consult Edin Henriquez Onychomyc osis (Primary Podiatric MedSurg Christina DPM Dx) [address] [address] [employer] [address] [phone] Social History Tobacco Use Types Packs/Day Years Used Date Smoking Tobacco: Never Assessed Sex Assigned at Date Recorded Not on file documented as of this encounter Progress Notes Edin Arzate DPM - 02/27/2016 11:54 AM CDT DATE OF VISIT: 02/27/2016 SUBJECTIVE: Clarice Arrington is a pleasant 35 y.o. female who presents to clinic today for evaluation of possible nail fungus on both great toes. She states that she has had thickening in the nail plates for quite some time. She indicates that the right great toenail is fake.. Adverse Drug Reactions: No Known Allergies No outpatient prescriptions prior to visit. No facility-administered medications prior to visit. Review of Systems: Negative for fever, rash or shortness of breath. Past Medical History: No past medical history on file. she denies diabetes or cancer. She does get her care through the [facility] There are no active problems to display for this patient. No past surgical history on file. she does not indicate any previous surgeries Social History: pathology technologist here in [place] OBJECTIVE: 35 y.o. year old female who appears their stated age. Alert and oriented and in no acute distress. Walks without a limp and appears to be in general good health. DP and PT pulses are palpable. Hair growth is present on the digits and capillary filling time is less than two seconds. Sensation is intact. There is no weakness with muscle testing of the foot, ankle or lower leg. She does have thickening noted to both great toenails. On her right great toe, she does have some onycholysis and the distal edge actually appears to be real nail. There is no evidence of infection. She does have a transverse line across the nail border indicating that a new nail could be growing and on both great toes. Her lesser toenails do have some discoloration. ASSESSMENT: Onychomycosis PLAN: Treatment options were discussed with the patient. I discussed the condition in great detail. I discussed the frustrating options available for treating nail fungus. I discussed with the patient that the nail fungus is not really contagious. I discussed the oral medications and the side effects and lack of success. I also discussed the laser and how this has not been shown to be that effective.I discussed the use of Vicks VapoRub. The patient will apply this once a day for the next 8-12 months. The patient was discharged ambulatory and in stable condition. No orders of the defined types were placed in this encounter. No orders of the defined types were placed in this encounter. (This note was created using voice recognition software and may contain some sfdc architect errors) documented in this encounter Plan of Treatment Not on filedocumented as of this encounter Visit Diagnoses Diagnosis Onychomycosis - Primary Dermatophytosis of nail documented in this encounter Care Teams Water Treatment Technician Relationship Specialty Start Date End Date Non Pn, Clinician, PCP - General 02/27/16 [place] [address] documented as of this encounter
[2022-03-13 17:40] LABS: Albumin* 4.5 g/dL (3.3-5.0); Chloride* 103 mmol/L (96-114); Potassium* 4.3 mmol/L (3.6-5.1); Sodium* 137 mmol/L (135-149)
[2022-03-13 17:42] LABS: Creatinine* 0.8 mg/dL (0.5-1.5); Estimated Glomerular Filt Rate 96 ml/min
[2022-03-13 17:43] LABS: Alanine Aminotransferase* 20 U/L (4-35); Alkaline Phosphatase* 78 U/L (40-150); Aspartate Amino Transferase* 24 U/L (12-35); Bilirubin Total* 0.2 mg/dL (0.1-1.5); Blood Urea Nitrogen* 20 mg/dL (5-24); Calcium* 9.2 mg/dL (8.4-10.6); Carbon Dioxide* 23 mmol/L (20-32); Glucose* 134 mg/dL (60-115); Total Protein* 7.6 g/dL (6.0-8.3)
[2022-03-13 18:13] LABS: TSH With Reflex to FT4* 0.788 uIU/mL (0.270-4.200)
[2022-03-13 18:18] LABS: Ferritin* 34.4 ng/mL (6.24-137.0)
[2022-03-13 18:32] LABS: Vitamin B12* 572 pg/mL (243-894)
[2022-03-13 20:03] LABS: Chlamydia DNA Amplified* NOT DETECTED (No Detected); GC DNA Amplified* NOT DETECTED (No Detected)
[2022-03-16 04:47] LABS: Cancer Antigen 125 16 U/mL (<=38)
== END 2022-03-13 15:40 | disposition home or self-care (01) ==
PROVIDERS: PCP Family Medicine; Visit Provider Family Medicine
DX: R53.83 Other fatigue (principal); R63.5 Abnormal weight gain; Z15.01 Genetic susceptibility to malignant neoplasm of breast; Z15.09 Genetic susceptibility to other malignant neoplasm; Z11.3 Encounter for screening for infections with a predominantly sexual mode of transmission; Z96.0 Presence of urogenital implants
CPT/HCPCS: 80053; 82607; 82728; 84443; 86304; 87086; 87491; 87591